=== PATIENT | female | born 1945 | race Caucasian/White ===

== ENCOUNTER 2020-08-07 08:19 | Outpatient (REF) | payer MEDICARE, SELFPAY ==
--- NOTE | 2020-08-07 08:24 | MM_ITS ---
EXAMINATION: MM SCREENING DIGITAL BREAST TOMOSYNTHESIS, BILATERAL CLINICAL INFORMATION: Screening. Asymptomatic. The lifetime risk of breast cancer based on the Tyrer-Cuzick Model is 2.9%. COMPARISON: Mammography: May 16, 2019 and studies dating back to December 01, 2013 TECHNIQUE: Digital breast tomosynthesis is performed in both the craniocaudal and mediolateral oblique views along with computer-aided detection (CAD). Synthesized 2D images are generated from the tomosynthesis. FINDINGS: The breasts are almost entirely fatty (ACR BI-RADS breast composition Category a). There are no significant masses, abnormal calcifications, or other abnormalities. MM/MM tomosynthesis screening BI IMPRESSION: There are no significant changes from prior study. ASSESSMENT: BI-RADS 1: Negative RECOMMENDATION: Routine annual mammography screening. This patient's information was entered into a reminder system with a target due date for their next mammogram.
== END 2020-08-07 08:20 | disposition home or self-care (01) ==
LOC: HO.MAMMO 08:19
PROVIDERS: PCP Internal Medicine; Visit Provider Internal Medicine
DX: Z12.31 Encounter for screening mammogram for malignant neoplasm of breast (principal)
CPT/HCPCS: 77063; 77067

== ENCOUNTER 2020-09-11 11:07 | Outpatient (REF) | payer MEDICARE, SELFPAY ==
[2020-09-11 12:40] LABS: Thyroid Stimulating Hormone 4.97 uIU/mL (0.32-4.0)
[2020-09-11 12:43] LABS: Free T4 (Free Thyroxine) 1.02 ng/dL (0.71-1.85)
== END 2020-09-11 11:08 | disposition home or self-care (01) ==
LOC: HO.LAB 11:07
PROVIDERS: PCP Internal Medicine; Visit Provider Internal Medicine Endocrinology, Diabetes & Metabolism
DX: E03.9 Hypothyroidism, unspecified (principal)
CPT/HCPCS: 36415; 84439; 84443

== ENCOUNTER → 2020-09-13 13:05 | Outpatient (BNVA) | payer MEDICARE, SELFPAY | PROVIDERS: PCP Internal Medicine; Visit Provider Internal Medicine Endocrinology, Diabetes & Metabolism | DX: Z13.89 Encounter for screening for other disorder (principal) | CPT/HCPCS: Q3014 ==

== ENCOUNTER 2020-10-16 14:01 | Outpatient (REF) | payer MEDICARE, SELFPAY ==
[2020-10-16 14:28] LABS: MANUAL DIFF FLAG NO
[2020-10-16 14:33] LABS: Basophils Percent Auto 0.4 % (0-2); Eosinophils Absolute Auto 0.2 X10*3/uL (0.0-0.4); Eosinophils Percent Auto 3.2 % (0-4); Hematocrit 30.4 % (37-47); Hemoglobin 8.6 g/dl (12.0-16.0); Imm Gran Abs Auto 0.02 X10*3/uL (0.00-0.03); Imm Gran Pct Auto 0.3 % (0.0-0.4); Lymphocytes Absolute Auto 1.1 X10*3/uL (1.2-4.9); Lymphocytes Percent Auto 16.1 % (20-40); Mean Corpuscular HGB Conc 28.3 g/dl (31.0-35.0); Mean Corpuscular Hemoglobin 21.2 pg (27.0-33.0); Mean Corpuscular Volume 75.1 fL (80-98); Mean Platelet Volume 9.6 fL (9.4-12.3); Monocytes Percent Auto 14.5 % (2-11); Neutrophils Absolute Auto 4.5 X10*3/uL (2.0-8.3); Neutrophils Percent Auto 65.5 % (45-73); Platelet Count 293 X10*3/uL (160-400); Red Blood Count 4.05 X10*6/uL (4.20-5.50); Red Cell Distribution Width 20.4 % (11.0-16.0); White Blood Count 6.9 X10*3/uL (4.8-10.8)
[2020-10-16 15:00] LABS: Alanine Aminotransferase 19 U/L (0-31); Albumin Level 4.4 g/dL (3.5-5.0); Alkaline Phosphatase 80 U/L (39-117); Anion Gap 15 (12-20); Aspartate Amino Transferase 22 U/L (5-31); Bilirubin Total 0.5 mg/dL (0.0-1.0); Blood Urea Nitrogen 19 mg/dL (9-16); Calcium 9.3 mg/dL (8.4-10.2); Carbon Dioxide 23 mmol/L (22-29); Chloride 104 mmol/L (96-108); Estimated Glomerular Filt Rate > 60; Glucose Fasting 89 mg/dL (60-99); Potassium 4.4 mmol/L (3.3-5.1); Sodium 138 mmol/L (135-145); Total Protein 7.1 g/dL (6.5-8.0)
[2020-10-16 15:20] LABS: Free T4 (Free Thyroxine) 0.95 ng/dL (0.71-1.85)
== END 2020-10-16 14:02 | disposition home or self-care (01) ==
LOC: HO.LAB 14:01
PROVIDERS: Internal Medicine Endocrinology, Diabetes & Metabolism; PCP Internal Medicine; Visit Provider Internal Medicine
DX: R42 Dizziness and giddiness (principal); E03.8 Other specified hypothyroidism; E06.3 Autoimmune thyroiditis
CPT/HCPCS: 36415; 80053; 84439; 84443; 85025

== ENCOUNTER → 2020-11-08 14:51 | Outpatient (BNVA) | payer MEDICARE, SELFPAY | PROVIDERS: PCP Internal Medicine; Visit Provider Internal Medicine Gastroenterology | DX: D50.9 Iron deficiency anemia, unspecified (principal) | CPT/HCPCS: 99212 ==

== ENCOUNTER 2020-11-26 08:48 | Day surgery (SDC) | payer MEDICARE, SELFPAY ==
[2020-11-21 10:14] VITALS: BMI 27.6
--- NOTE | 2020-11-25 09:46 | HO.ANESPROP2 ---
HPI - Anesthesia Eval Consult details Narrative: 75yo F for Upper Endoscopy and Colonoscopy PMFSH Active Problems Active Problems: All Active Problems (Updated 11/21/20 @ 10:27 by Ruth Ann Dias) Microcytic anemia (Acute) Dizziness (Acute) Hypovitaminosis D (Acute) Dyslipidemia (Acute) Autoimmune thyroiditis (Acute) Hypothyroidism (Acute) Past Medical History Medical History Autoimmune thyroiditis Carpal tunnel syndrome on both sides COVID-19 vaccine administered Dizziness Dyslipidemia Elevated cholesterol Hypothyroidism Hypovitaminosis D Microcytic anemia Family History Family History Father Lymphoma Mother No problems noted. Sister In good health Surgical History Surgical History Hx of colonoscopy Total knee replacement status Social History Social History Alcohol intake: current Alcohol intake frequency: holidays/special occasions only Alcohol type: wine Smoking Status: Never smoker Use of substances other than those prescribed or required for medical reasons: No Have you been hit, kicked, punched, or otherwise hurt by someone within the past year? If so, by whom?: No Are you DNR?: No Advance Directives Information Provided: No Recently lost weight without trying: No Eating poorly because of decreased appetite: No Nutrition Risks: No Nutritional Risk Poor oral hygiene: No Meds Allergies Allergy/AdvReac Type Severity Reaction Status Date / Time No Known Allergies Allergy Verified 11/08/20 15:04 Home Medications Medication Instructions Recorded Confirmed Last Taken Type ascorbate calcium (vitamin C) 500 500 mg PO DAILY 08/14/20 11/21/20 Unknown History mg tablet Exam Exam Date and Time: November 25, 2020 0946 Height,Weight and Vital Signs: Height 5 ft 9 in Weight 84.822 kg Pertinent Lab Results Pertinent Lab Results: Laboratory Tests 11/01/20 11/01/20 13:34 13:34 WBC 5.7 Hgb 10.7 L D Hct 36.1 L Plt Count 257 Sodium 140 Potassium 4.4 Chloride 108 Carbon Dioxide 24 BUN 18 H Creatinine 0.86 Assessment and Plan Assessment Anesthesia Assessment: Chart Reviewed
[2020-11-26 09:08] VITALS: BMI 24.3
[2020-11-26 09:30] VITALS: BP 147/74; PULSE 78; RESP 16; TEMP 36.2; O2SAT 96
[2020-11-26] MEDS: Lactated Ringers 1,000 ML 100 ML IVCONT (09:32)
--- NOTE | 2020-11-26 09:45 | P.CONAN_ITS ---
[facility] Active Problems Active Problems: All Active Problems (Updated 11/21/20 @ 10:27 by Ruth Ann polk) Microcytic anemia (Acute) Dizziness (Acute) Hypovitaminosis D (Acute) Dyslipidemia (Acute) Autoimmune thyroiditis (Acute) Hypothyroidism (Acute) Past Medical History Medical History Autoimmune thyroiditis Carpal tunnel syndrome on both sides COVID-19 vaccine administered Dizziness Dyslipidemia Elevated cholesterol Hypothyroidism Hypovitaminosis D Microcytic anemia Family History Family History Father Lymphoma Mother No problems noted. Sister In good health Surgical History Surgical History Hx of colonoscopy Total knee replacement status Social History Social History Alcohol intake: current Alcohol intake frequency: holidays/special occasions only Alcohol type: wine Smoking Status: Never smoker Use of substances other than those prescribed or required for medical reasons: No Have you been hit, kicked, punched, or otherwise hurt by someone within the past year? If so, by whom?: No Are you DNR?: No Advance Directives Information Provided: No Recently lost weight without trying: No Eating poorly because of decreased appetite: No Nutrition Risks: No Nutritional Risk Poor oral hygiene: No Meds Allergies Allergy/AdvReac Type Severity Reaction Status Date / Time No Known Allergies Allergy Verified 11/08/20 15:04 Active Medications: Current Medications Generic Name Dose Route Start Last Admin Trade Name Kala PRN Reason Stop Dose Admin Lactated Ringer's 1,000 mls @ 100 mls/hr 11/26/20 09:00 11/26/20 09:32 Lr IVCONT 100 mls/hr .Q10H MANOHAR Administration Home Medications Medication Instructions Recorded Confirmed Last Taken Type ascorbate calcium (vitamin C) 500 500 mg PO DAILY 08/14/20 11/21/20 Unknown History mg tablet Exam Exam Date and Time: November 26, 2020 0945 Height,Weight and Vital Signs: Height 5 ft 9 in Weight 74.843 kg Last Vital Signs Temp 97.1 F 11/26/20 09:30 Pulse 78 11/26/20 09:30 Resp 16 11/26/20 09:30 BP 147/74 H 11/26/20 09:30 Pulse Ox 96 11/26/20 09:30 Airway Mallampati Class: III TM Dist: >3cm Neck ROM: Full Heart: RRR Lungs: CTA
--- NOTE | 2020-11-26 10:44 | P.OP_ITS ---
Operative Note Operative Note Date of Service: 11/26/20 Narrative: Pre-op diagnosis: Colon cancer screening, iron deficiency anemia Post-op diagnosis: other (Esophagitis, gastritis, colon polyp, diverticulosis) Procedure: FLEXIBLE TRANSORAL UPPER GASTROINTESTINAL ENDOSCOPY WITH BIOPSIES AND COLONOSCOPY TILL CECUM WITH BIOPSIES AND SNARE POLYPECTOMY PROCEDURE NOTE UPPER ENDOSCOPY Consent: Indications for the procedure and potential complications of bleeding, perforation, reaction to medications and missed diagnosis were discussed with the patient and informed consent was obtained. Instrument: Olympus GIF H 190 mid size upper endoscope Monitoring: Vital signs and clinical assessment, continuous EKG monitoring, Pulse oximetry, Carbon Dioxide monitoring and blood pressure monitoring were done throughout the procedure. Procedure: The patient was placed in the left lateral decubitis position and pre-procedure medications were administered and a bite block was placed. The endoscope was inserted into the mouth and advanced under direct vision to the third part of duodenum. A careful inspection was made as the upper endoscope was withdrawn including a retroflexed examination of the proximal stomach; Findings and interventions are described below. Findings: Larynx: Normal Esophagus: GE junction at 34 cms, small hiatal hernia 34 to 36 cms. Focal ulcer at GE junction. A 1 cms tongue of suspected Gaytan's - biopsied. Stomach: Mild gastric erythema. Biopsies were obtained. Grade 2 flap valve on retroflexed examination of the cardia. Duodenum: Normal bulb and descending duodenum. Biopsies were obtained from 3rd part of duodenum to check for celiac sprue. Intervention: Biopsies as noted above COLONOSCOPY PROCEDURE NOTE Consent: Indications for the procedure and potential complications of bleeding, perforation, reaction to medications and missed diagnosis were discussed with the patient and informed consent was obtained. Instrument: Olympus PCF H 190 L variable stiffness pediatric colonoscope Monitoring: Vital signs and clinical assessment, intermittent blood pressure monitoring, continuous EKG monitoring, Pulse oximetry and Carbon Dioxide monitoring were done throughout the procedure. Colon withdrawl time was 31 minutes. Procedure: The patient was placed in the left lateral decubitis position and pre-procedure medications were administered. After a digital rectal examination of the ano-rectum, the video colonoscope was inserted into the rectum and advanced through the colon to the cecum. The colonoscope was slowly withdrawn in a retrograde panoramic fashion and the colon mucosa was carefully examined including a retroflexed view of the rectum. Findings and interventions are described below. Procedure Difficulty: : Colon was long and tortuous and there was recurrent loop formation. Patient was placed in the supine position and LLQ pressure was applied to intubate the ascending colon Findings: Terminal Ileum: Not evaluated Cecum: Normal Ascending Colon: A 2 cms sessile polyp removed with a hot snare. Transverse Colon: Normal Descending Colon: Normal Sigmoid Colon: Moderate diverticulosis Rectum: Normal Ano-rectum: Hypertrophied anal papillae Colon preparation: Good to fair despite copious irrigation Impression and Post Procedure Diagnosis: Endoscopy Findings: ESOPHAGUS: Small hiatal hernia 34 to 36 cms. Focal ulcer at GE junction. A 1 cms tongue of suspected Gaytan's - biopsied. STOMACH: Gastritis DUODENUM: Normal - biopsied to check for celiac sprue Colonoscopy Findings: One large polyp removed Moderate diverticulosis seen in the sigmoid colon Plan: Await pathology results Patient has an appointment on 12/26/20 in the GI Clinic with Latesha Mitchell M.D.. Repeat Colonoscopy interval based on path results - in 3 years if polyps are adenomatous and due to fair prep. Above findings were reviewed with the patient and colon polyps and GERD handouts were given in the discharge area Surgeon: Latesha Mitchell MD BIOPSIES SHOWED: A. Small bowel, biopsy: Small intestinal mucosa within normal limits. B. Stomach, antrum, biopsy: Antral-type mucosa with mild chronic inactive inflammation; no Helicobacter organisms seen. C. Esophagus, distal, biopsy: - Cardiac-type mucosa with moderate chronic active inflammation; no intestinal metaplasia seen. - Squamous mucosa within normal limits. D. Colon, ascending, polypectomy: Fragments of tubular adenoma; no high-grade dysplasia or carcinoma seen. COMMENT: Diagnostic features of celiac disease are not seen. Anesthesia: MAC (DR. PIÑA) Was an Industrial Technology Education Teacher used for this Procedure?: Yes Industrial Technology Education Teacher: Gary Mai Estimated blood loss (mL): 0 Pathology: other (A- SMALL BOWEL BXS R/O CELIAC B- GASTRIC ANTRUM BXS R/O H. PYLORI C-DISTAL ESOPHAGUS BXS R/O GAYTAN'S D- ASCENDING COLON POLYP) Condition: stable Disposition: PACU
--- NOTE | 2020-11-26 10:44 | MHC.SHP ---
Pre-Procedural Eval Section A The patient is an INPATIENT: No Changes since office visit: Yes Patient answered all questions; No Cold of Flu in the past 2 weeks, No New Medical Problems and No Changes in Medication The History & Physical has been completed within 30 days and I have reviewed it.: Yes Section B Chief Complaint: Iron Deficency Anemia Allergies: Allergies Allergy/AdvReac Type Severity Reaction Status Date / Time No Known Allergies Allergy Verified 11/08/20 15:04 Plan I have reviewed the history and physical and performed a pertinent physical examination on my patient. No changes have occurred unless specified.
[2020-11-26 11:52] VITALS: BP 143/73; PULSE 53; RESP 16; TEMP 36.3; O2SAT 96
[2020-11-26 12:07] VITALS: BP 159/75; PULSE 53; RESP 18; TEMP 36.3; O2SAT 100
== END 2020-11-26 12:50 | disposition home or self-care (01) ==
PROVIDERS: PCP Internal Medicine; Visit Provider Internal Medicine Gastroenterology
PROC: (CPT 45385; principal; 2020-11-26 10:00)
DX: Z12.11 Encounter for screening for malignant neoplasm of colon (principal); D50.9 Iron deficiency anemia, unspecified; D12.2 Benign neoplasm of ascending colon; K57.30 Diverticulosis of large intestine without perforation or abscess without bleeding; K29.50 Unspecified chronic gastritis without bleeding; K20.80 Other esophagitis without bleeding; K44.9 Diaphragmatic hernia without obstruction or gangrene; K62.89 Other specified diseases of anus and rectum; E06.3 Autoimmune thyroiditis; E03.9 Hypothyroidism, unspecified; E55.9 Vitamin D deficiency, unspecified; Z79.899 Other long term (current) drug therapy
CPT/HCPCS: 45385; 45380; 43239; 88305; 88342

== ENCOUNTER → 2020-12-26 10:32 | Outpatient (BNVA) | payer MEDICARE, SELFPAY | PROVIDERS: PCP Internal Medicine; Referring Provider Internal Medicine; Visit Provider Internal Medicine Gastroenterology | DX: K22.10 Ulcer of esophagus without bleeding (principal); D50.9 Iron deficiency anemia, unspecified; Z86.010 Personal history of colon polyps | CPT/HCPCS: 99212 ==

== ENCOUNTER 2021-01-30 11:58 | Outpatient (REF) | payer MEDICARE, SELFPAY ==
[2021-01-30 13:11] LABS: MANUAL DIFF FLAG NO
[2021-01-30 13:19] LABS: Basophils Percent Auto 0.5 % (0-2); Eosinophils Absolute Auto 0.2 X10*3/uL (0.0-0.4); Hemoglobin 13.9 g/dl (12.0-16.0); Imm Gran Abs Auto 0.02 X10*3/uL (0.00-0.03); Imm Gran Pct Auto 0.3 % (0.0-0.4); Lymphocytes Absolute Auto 0.9 X10*3/uL (1.2-4.9); Lymphocytes Percent Auto 15.5 % (20-40); Mean Corpuscular HGB Conc 32.3 g/dl (31.0-35.0); Mean Corpuscular Hemoglobin 29.1 pg (27.0-33.0); Mean Platelet Volume 10.9 fL (9.4-12.3); Monocytes Absolute Auto 0.8 X10*3/uL (0.1-1.2); Monocytes Percent Auto 12.6 % (2-11); Neutrophils Percent Auto 68.1 % (45-73); Platelet Count 207 X10*3/uL (160-400); Red Blood Count 4.78 X10*6/uL (4.20-5.50); Red Cell Distribution Width 17.9 % (11.0-16.0); White Blood Count 5.9 X10*3/uL (4.8-10.8)
[2021-01-30 13:30] LABS: Alanine Aminotransferase 25 U/L (0-31); Albumin Level 4.4 g/dL (3.5-5.0); Alkaline Phosphatase 77 U/L (39-117); Anion Gap 14 (12-20); Aspartate Amino Transferase 25 U/L (5-31); Bilirubin Total 0.8 mg/dL (0.0-1.0); Blood Urea Nitrogen 15 mg/dL (9-16); Calcium 9.6 mg/dL (8.4-10.2); Carbon Dioxide 23 mmol/L (22-29); Chloride 106 mmol/L (96-108); Cholesterol 176 mg/dL; Estimated Glomerular Filt Rate 57; Glucose Fasting 75 mg/dL (60-99); HDL Cholesterol 59 mg/dL; LDL Cholesterol Calculated 106 mg/dl; Potassium 4.4 mmol/L (3.3-5.1); Sodium 139 mmol/L (135-145); Total Protein 7.1 g/dL (6.5-8.0); Triglycerides 58 mg/dL
[2021-02-03 13:41] LABS: Vitamin D 25-OH, D2 <4 ng/mL; Vitamin D 25-OH, D3 29 ng/mL; Vitamin D 25-OH, Total 29 ng/mL (30-100)
== END 2021-01-30 11:59 | disposition home or self-care (01) ==
LOC: HO.LAB 11:58
PROVIDERS: Absent Provider Internal Medicine Gastroenterology; PCP Internal Medicine; Referring Provider Internal Medicine Medical Oncology; Visit Provider Internal Medicine
DX: D50.9 Iron deficiency anemia, unspecified (principal); E78.5 Hyperlipidemia, unspecified; E55.9 Vitamin D deficiency, unspecified
CPT/HCPCS: 36415; 80053; 80061; 82306; 85025

== ENCOUNTER 2021-03-04 11:06 | Day surgery (SDC) | payer MEDICARE, SELFPAY ==
[2021-02-25 14:44] VITALS: BMI 24.3
--- NOTE | 2021-03-03 10:30 | HO.ANESPROP2 ---
HPI - Anesthesia Eval Consult details Narrative: 76yo F for Upper Endoscopy s/p upper and colo with [facility] 11[facility] Active Problems Active Problems: All Active Problems (Updated 01/07/21 @ 13:32 by Natalya Valencia MD) Esophageal ulcer without bleeding (Acute) History of colon polyps (Acute) Obesity (Acute) Microcytic anemia (Acute) Dizziness (Acute) Hypovitaminosis D (Acute) Dyslipidemia (Acute) Autoimmune thyroiditis (Acute) Hypothyroidism (Acute) Past Medical History Medical History (Updated 01/07/21 @ 13:32 by Natalya Valencia MD) Autoimmune thyroiditis Carpal tunnel syndrome on both sides COVID-19 vaccine administered Dizziness Dyslipidemia Elevated cholesterol Hypothyroidism Hypovitaminosis D Microcytic anemia Family History Family History Father Lymphoma Mother No problems noted. Sister In good health Surgical History Surgical History (Updated 02/25/21 @ 14:40 by Ruth Ann Dias RN) History of esophagogastroduodenoscopy (EGD) Hx of colonoscopy Hx of colonoscopy Total knee replacement status Social History Social History (Updated 12/26/20 @ 10:58 by Marta Joshua) Alcohol intake: current Alcohol intake frequency: holidays/special occasions only Alcohol type: wine Patient Tobacco Use Status: Never used Tobacco Use of substances other than those prescribed or required for medical reasons: No Advance Directives Information Provided: No Meds Allergies Allergy/AdvReac Type Severity Reaction Status Date / Time No Known Allergies Allergy Verified 12/26/20 10:45 Exam Exam Date and Time: March 03, 2021 1030 Height,Weight and Vital Signs: Height 5 ft 9 in Weight 74.843 kg Pertinent Lab Results Pertinent Lab Results: Laboratory Tests 01/30/21 01/30/21 12:15 12:15 WBC 5.9 Hgb 13.9 Hct 43.0 Plt Count 207 Sodium 139 Potassium 4.4 Chloride 106 Carbon Dioxide 23 BUN 15 Creatinine 0.95 Assessment and Plan Assessment Anesthesia Assessment: Chart Reviewed
[2021-03-04 11:35] VITALS: BP 142/69; PULSE 53; RESP 16; TEMP 36.1; O2SAT 95
[2021-03-04] MEDS: Lactated Ringers 1,000 ML 100 ML IVCONT (12:00)
--- NOTE | 2021-03-04 12:52 | MHC.SHP ---
Pre-Procedural Eval Section A Date of Service: 03/04/21 The patient is an INPATIENT: No The History & Physical has been completed within 30 days and I have reviewed it.: No Section B Chief Complaint: Esophael ulcer without bleeding Details of Present Illness: Follow-up of esophageal ulcer Relevant Family History (Specify if Yes): No Relevant Social History: None Present Medications: see Short Stay Collaborative assessment Medical History: Significant History (Autoimmune thyroiditis Carpal tunnel syndrome on both sides COVID-19 vaccine administered Dizziness Dyslipidemia Elevated cholesterol Hypothyroidism Hypovitaminosis D Microcytic anemia) History of Previous Operations: Relevant previous surgery/procedure and date(s) (History of esophagogastroduodenoscopy (EGD) Hx of colonoscopy Hx of colonoscopy Total knee replacement status) Allergies: Allergies Allergy/AdvReac Type Severity Reaction Status Date / Time No Known Allergies Allergy Verified 12/26/20 10:45 Review of Systems Sugical H&P ROS: Negative: Constitution, Cardiovascular and Respiratory and Yes, Specify: Gastrointestinal (GERD) Exam Surgical H&P Exam: Normal: Heart, Normal: Lungs, Normal: Extremities and Normal: Abdomen Plan Diagnosis/Plan: Unchanged I have reviewed the history and physical and performed a pertinent physical examination on my patient. No changes have occurred unless specified.
--- NOTE | 2021-03-04 13:04 | P.BOP_ITS ---
Brief Operative Note Date of Service: 03/04/21 Pre-op diagnosis: GERD, FU of esophageal ulcer Post-op diagnosis: other (GERD, Hiatal hernia, gastritis) Procedure: FLEXIBLE TRANSORAL UPPER GASTROINTESTINAL ENDOSCOPY WITH BIOPSIES Consent: Indications for the procedure and potential complications of bleeding, perforation, reaction to medications and missed diagnosis were discussed with the patient and informed consent was obtained. Instrument: Olympus GIF H 190 mid size upper endoscope Monitoring: Vital signs and clinical assessment, continuous EKG monitoring, Pulse oximetry, Carbon Dioxide monitoring and blood pressure monitoring were done throughout the procedure. Procedure: The patient was placed in the left lateral decubitis position and pre-procedure medications were administered and a bite block was placed. The endoscope was inserted into the mouth and advanced under direct vision to the third part of duodenum. A careful inspection was made as the upper endoscope was withdrawn including a retroflexed examination of the proximal stomach; Findings and interventions are described below. Findings: Larynx: Normal Esophagus: GE junction at 34 cms, small hiatal hernia 34 to 36 cms.? Focal ulcer at GE junction seen on last EGD appears to have healed. Stomach: Mild gastric erythema. Biopsies were obtained. Grade 2 flap valve on retroflexed examination of the cardia. Duodenum: Normal bulb and descending duodenum Intervention: Biopsies as noted above Impression and Post Procedure Diagnosis: Endoscopy Findings: ESOPHAGUS: small hiatal hernia 34 to 36 cms.? Focal ulcer at GE junction seen on last EGD appears to have healed. STOMACH: Gastritis Plan: Await pathology results Patient has an appointment on 03/20/21 in the GI Clinic with Latesha Mitchell M.D. Above findings were reviewed with the patient. Surgeon: Latesha Mitchell MD Anesthesia: MAC (Barbara Gupta CRNA) Was an Electronics Mechanic Apprentice used for this Procedure?: Yes Electronics Mechanic Apprentice: Wanda Nicolas Estimated blood loss (mL): 0 Pathology: other ( A- STOMACH BIOPSIES) Condition: stable Disposition: other
--- NOTE | 2021-03-04 13:29 | W.PM.OPN ---
Operative Note Operative Note Date of Service: 03/04/21 Narrative: Pre-op diagnosis:?GERD, FU of esophageal ulcer Post-op diagnosis:?other (GERD, Hiatal hernia, gastritis) Procedure:? FLEXIBLE TRANSORAL UPPER GASTROINTESTINAL ENDOSCOPY WITH BIOPSIES Consent:?Indications for the procedure and potential complications of bleeding, perforation, reaction to medications and missed diagnosis were discussed with the patient and informed consent was obtained. Instrument:?Olympus GIF H 190 mid size upper endoscope Monitoring: Vital signs and clinical assessment, continuous EKG monitoring, Pulse oximetry, Carbon Dioxide monitoring and blood pressure monitoring were done throughout the procedure. Procedure:?The patient was placed in the left lateral decubitis position and pre-procedure medications were administered and a bite block was placed. The endoscope was inserted into the mouth and advanced under direct vision to the third part of duodenum. A careful inspection was made as the upper endoscope was withdrawn including a retroflexed examination of the proximal stomach; Findings and interventions are described below. Findings: Larynx:? Normal Esophagus:?GE junction at 34 cms, small hiatal hernia 34 to 36 cms.? Focal ulcer at GE junction seen on last EGD appears to have healed. Stomach:?Mild gastric erythema. Biopsies were obtained. Grade 2 flap valve on retroflexed examination of the cardia. Duodenum:?Normal bulb and descending duodenum Intervention:?Biopsies as noted above Impression and Post Procedure Diagnosis: Endoscopy Findings: ESOPHAGUS:?small hiatal hernia 34 to 36 cms.? Focal ulcer at GE junction seen on last EGD appears to have healed. STOMACH: Gastritis Plan: Await pathology results Patient has an appointment on 03/20/21 in the GI Clinic with Latesha Mitchell M.D. Above findings were reviewed with the patient. Surgeon:?Latesha Mitchell MD Anesthesia:?MAC (Barbara Gupta CRNA) Was an Senior Net Application Developer used for this Procedure?:?Yes Senior Net Application Developer:?Wanda Nicolas Estimated blood loss (mL):?0 Pathology:?other ( A- STOMACH BIOPSIES) Condition:?stable Disposition:?other
[2021-03-04 13:31] VITALS: BP 98/51; PULSE 94; RESP 18; TEMP 36.8; O2SAT 94
[2021-03-04 13:48] VITALS: BP 120/78; PULSE 58; RESP 18; TEMP 36.1; O2SAT 97
== END 2021-03-04 14:19 ==
LOC: HO.SSS 11:06
PROVIDERS: PCP Internal Medicine; Visit Provider Internal Medicine Gastroenterology
PROC: 0DJ08ZZ Inspection of Upper Intestinal Tract, Via Natural or Artificial Opening Endoscopic (ICD-10-PCS; CPT 43235; principal; 2021-03-04 12:50)
DX: K22.10 Ulcer of esophagus without bleeding (principal); K29.50 Unspecified chronic gastritis without bleeding; K21.9 Gastro-esophageal reflux disease without esophagitis; K44.9 Diaphragmatic hernia without obstruction or gangrene; D50.9 Iron deficiency anemia, unspecified; E06.3 Autoimmune thyroiditis; E78.5 Hyperlipidemia, unspecified; E03.9 Hypothyroidism, unspecified; E55.9 Vitamin D deficiency, unspecified; R42 Dizziness and giddiness; Z79.899 Other long term (current) drug therapy
CPT/HCPCS: 43239; 88305; 88342; J3010

== ENCOUNTER → 2021-03-20 10:02 | Outpatient (BNVA) | payer MEDICARE, SELFPAY | PROVIDERS: PCP Internal Medicine; Visit Provider Internal Medicine Gastroenterology | CPT/HCPCS: Q3014 ==

== ENCOUNTER 2021-04-17 15:43 | Outpatient (REF) | payer MEDICARE, SELFPAY ==
[2021-04-17 16:21] LABS: MANUAL DIFF FLAG NO
[2021-04-17 16:59] LABS: Basophils Percent Auto 0.6 % (0-2); Eosinophils Absolute Auto 0.2 X10*3/uL (0.0-0.4); Eosinophils Percent Auto 2.8 % (0-4); Hematocrit 40.4 % (37-47); Hemoglobin 13.8 g/dl (12.0-16.0); Imm Gran Abs Auto 0.02 X10*3/uL (0.00-0.03); Imm Gran Pct Auto 0.3 % (0.0-0.4); Lymphocytes Percent Auto 14.6 % (20-40); Mean Corpuscular HGB Conc 34.2 g/dl (31.0-35.0); Mean Corpuscular Hemoglobin 32.3 pg (27.0-33.0); Mean Corpuscular Volume 94.6 fL (80-98); Mean Platelet Volume 11.1 fL (9.4-12.3); Monocytes Absolute Auto 0.8 X10*3/uL (0.1-1.2); Monocytes Percent Auto 10.6 % (2-11); Neutrophils Absolute Auto 5.1 X10*3/uL (2.0-8.3); Neutrophils Percent Auto 71.1 % (45-73); Platelet Count 224 X10*3/uL (160-400); Red Blood Count 4.27 X10*6/uL (4.20-5.50); Red Cell Distribution Width 13.5 % (11.0-16.0); White Blood Count 7.1 X10*3/uL (4.8-10.8)
[2021-04-17 17:48] LABS: Alanine Aminotransferase 26 U/L (0-31); Albumin Level 4.5 g/dL (3.5-5.0); Alkaline Phosphatase 66 U/L (39-117); Anion Gap 13 (12-20); Aspartate Amino Transferase 24 U/L (5-31); Blood Urea Nitrogen 20 mg/dL (9-16); Calcium 9.6 mg/dL (8.4-10.2); Carbon Dioxide 23 mmol/L (22-29); Chloride 106 mmol/L (96-108); Cholesterol 169 mg/dL; Estimated Glomerular Filt Rate 54; Glucose Fasting 82 mg/dL (60-99); HDL Cholesterol 56 mg/dL; LDL Cholesterol Calculated 99 mg/dl; Potassium 4.3 mmol/L (3.3-5.1); Sodium 138 mmol/L (135-145); Total Protein 7.1 g/dL (6.5-8.0); Triglycerides 74 mg/dL
[2021-04-17 18:08] LABS: Ferritin 71 ng/mL (10-250); Free T4 (Free Thyroxine) 1.02 ng/dL (0.71-1.85); Thyroid Stimulating Hormone 4.57 uIU/mL (0.32-4.0)
== END 2021-04-17 15:44 | disposition home or self-care (01) ==
LOC: HO.LAB 15:43
PROVIDERS: Internal Medicine Gastroenterology; Absent Provider Internal Medicine Medical Oncology; PCP Internal Medicine; Visit Provider Internal Medicine Endocrinology, Diabetes & Metabolism
DX: D50.9 Iron deficiency anemia, unspecified (principal); E78.5 Hyperlipidemia, unspecified; E03.8 Other specified hypothyroidism; E06.3 Autoimmune thyroiditis
CPT/HCPCS: 36415; 80053; 80061; 82728; 84439; 84443; 85025

== ENCOUNTER → 2021-09-12 10:11 | Outpatient (BNVA) | payer MEDICARE, SELFPAY | PROVIDERS: PCP Internal Medicine; Visit Provider Nurse Practitioner Gerontology | DX: E03.8 Other specified hypothyroidism (principal); E06.3 Autoimmune thyroiditis; E55.9 Vitamin D deficiency, unspecified | CPT/HCPCS: Q3014 ==

== ENCOUNTER 2021-09-16 13:10 | Outpatient (REF) | payer MEDICARE, SELFPAY ==
--- NOTE | ~2021-09-16 | MM_ITS ---
EXAMINATION: MM SCREENING DIGITAL BREAST TOMOSYNTHESIS, BILATERAL CLINICAL INFORMATION: Screening. Asymptomatic. The lifetime risk of breast cancer based on the Tyrer-Cuzick Model is 2%. COMPARISON: Mammography: 08/07/2020, 05/16/2019, 05/02/2018 TECHNIQUE: Digital breast tomosynthesis is performed in both the craniocaudal and mediolateral oblique views along with computer-aided detection (CAD). Synthesized 2D images are generated from the tomosynthesis. Additional right CC view is provided. FINDINGS: The breasts are almost entirely fatty (ACR BI-RADS breast composition Category a). Parenchymal pattern is similar to prior studies. Background stromal and fibroglandular markings are stable. No developing density, interval mass, architectural abnormality. No abnormal calcifications. Skin contours are smooth. There are no significant changes. MM/MM tomosynthesis screening BI IMPRESSION: No mammographic evidence of malignancy. ASSESSMENT: BI-RADS 1: Negative RECOMMENDATION: Routine annual mammography screening. This patient's information was entered into a reminder system with a target due date for their next mammogram.
[2021-09-16 14:33] LABS: MANUAL DIFF FLAG NO
[2021-09-16 14:41] LABS: Basophils Percent Auto 0.5 % (0-2); Eosinophils Absolute Auto 0.2 X10*3/uL (0.0-0.4); Eosinophils Percent Auto 3.3 % (0-4); Hematocrit 41.6 % (37.0-47.0); Hemoglobin 13.7 g/dl (12.0-16.0); Imm Gran Abs Auto 0.03 X10*3/uL (0.00-0.03); Imm Gran Pct Auto 0.5 % (0.0-0.4); Lymphocytes Percent Auto 15.1 % (20-40); Mean Corpuscular HGB Conc 32.9 g/dl (31.0-35.0); Mean Corpuscular Hemoglobin 31.8 pg (27.0-33.0); Mean Corpuscular Volume 96.5 fL (80.0-98.0); Mean Platelet Volume 10.8 fL (9.4-12.3); Monocytes Absolute Auto 0.9 X10*3/uL (0.1-1.2); Monocytes Percent Auto 13.6 % (2-11); Neutrophils Absolute Auto 4.3 x10*3/uL (2.0-8.3); Platelet Count 214 X10*3/uL (160-400); Red Blood Count 4.31 X10*6/uL (4.20-5.50); Red Cell Distribution Width 13.1 % (11.0-16.0); White Blood Count 6.3 X10*3/uL (4.8-10.8)
[2021-09-16 15:05] LABS: Cholesterol 172 mg/dL; HDL Cholesterol 57 mg/dL; LDL Cholesterol Calculated 96 mg/dl; Triglycerides 99 mg/dL
[2021-09-16 15:14] LABS: Estimated Average Glucose 100 mg/dL; Hemoglobin A1C 114.0642 umol/L; Hemoglobin A1c % 5.1 %
[2021-09-16 15:31] LABS: Free T4 (Free Thyroxine) 1.05 ng/dL (0.71-1.85); Thyroid Stimulating Hormone 4.97 uIU/mL (0.32-4.0); Vitamin D 25-OH Total 28.1 ng/mL (>30)
== END 2021-09-16 13:11 | disposition home or self-care (01) ==
LOC: HO.MAMMO 13:10
PROVIDERS: Internal Medicine Endocrinology, Diabetes & Metabolism; Nurse Practitioner Acute Care; Nurse Practitioner Gerontology; PCP Internal Medicine; Visit Provider Internal Medicine
DX: Z12.31 Encounter for screening mammogram for malignant neoplasm of breast (principal); D50.9 Iron deficiency anemia, unspecified; E03.9 Hypothyroidism, unspecified; E78.5 Hyperlipidemia, unspecified; E03.8 Other specified hypothyroidism; E06.3 Autoimmune thyroiditis; E55.9 Vitamin D deficiency, unspecified
CPT/HCPCS: 36415; 77063; 77067; 80061; 82306; 83036; 84439; 84443; 85025

== ENCOUNTER → 2021-09-18 08:28 | Outpatient (BNVA) | payer MEDICARE, SELFPAY | PROVIDERS: PCP Internal Medicine; Visit Provider Internal Medicine Gastroenterology | DX: Z13.89 Encounter for screening for other disorder (principal) | CPT/HCPCS: Q3014 ==

== ENCOUNTER 2021-12-03 13:29 | Outpatient (REF) | payer MEDICARE, SELFPAY ==
[2021-12-03 14:56] LABS: Free T4 (Free Thyroxine) 1.12 ng/dL (0.71-1.85); Thyroid Stimulating Hormone 1.98 uIU/mL (0.32-4.0)
== END 2021-12-03 13:30 | disposition home or self-care (01) ==
LOC: HO.LAB 13:29
PROVIDERS: PCP Internal Medicine; Visit Provider Nurse Practitioner Gerontology
DX: E03.8 Other specified hypothyroidism (principal); E06.3 Autoimmune thyroiditis
CPT/HCPCS: 36415; 84439; 84443

== ENCOUNTER 2022-03-13 10:50 | Outpatient (REF) | payer MEDICARE, SELFPAY ==
[2022-03-13 12:06] LABS: Hematocrit 39.5 % (37.0-47.0); Hemoglobin 13.6 g/dl (12.0-16.0); Mean Corpuscular HGB Conc 34.4 g/dl (31.0-35.0); Mean Corpuscular Hemoglobin 31.9 pg (27.0-33.0); Mean Corpuscular Volume 92.5 fL (80.0-98.0); Mean Platelet Volume 10.7 fL (9.4-12.3); Platelet Count 211 X10*3/uL (160-400); Red Blood Count 4.27 X10*6/uL (4.20-5.50); Red Cell Distribution Width 13.3 % (11.0-16.0); White Blood Count 6.1 X10*3/uL (4.8-10.8)
[2022-03-13 13:00] LABS: Ferritin 83 ng/mL (10-250); Thyroid Stimulating Hormone 1.28 uIU/mL (0.32-4.0)
== END 2022-03-13 10:51 | disposition home or self-care (01) ==
LOC: HO.LAB 10:50
PROVIDERS: Absent Provider Internal Medicine Gastroenterology; PCP Internal Medicine; Visit Provider Internal Medicine
DX: E06.3 Autoimmune thyroiditis (principal); D50.9 Iron deficiency anemia, unspecified
CPT/HCPCS: 36415; 82728; 84443; 85027

== ENCOUNTER → 2022-05-07 12:33 | Outpatient (BNVA) | payer MEDICARE, BC, SELFPAY | PROVIDERS: PCP Internal Medicine; Referring Provider Internal Medicine; Visit Provider Internal Medicine Gastroenterology | DX: D50.9 Iron deficiency anemia, unspecified (principal); K22.10 Ulcer of esophagus without bleeding; Z86.010 Personal history of colon polyps | CPT/HCPCS: 99212 ==

== ENCOUNTER 2022-09-25 12:16 | Outpatient (REF) | payer MEDICARE, SELFPAY ==
--- NOTE | ~2022-09-25 | MM_ITS ---
EXAMINATION: MM SCREENING DIGITAL BREAST TOMOSYNTHESIS, BILATERAL CLINICAL INFORMATION: Screening. Asymptomatic. The lifetime risk of breast cancer based on the Tyrer-Cuzick Model is 2%. COMPARISON: Mammography: 09/16/2021, 08/07/2020, 05/16/2019 TECHNIQUE: Digital breast tomosynthesis is performed in both the craniocaudal and mediolateral oblique views along with computer-aided detection (CAD). Synthesized 2D images are generated from the tomosynthesis. FINDINGS: The breasts are almost entirely fatty (ACR BI-RADS breast composition Category a). Background stromal markings are similar to prior studies and there is no developing density or interval architectural abnormality. There are no significant masses, abnormal calcifications, or other abnormalities. The axilla and skin contours are unremarkable. MM/MM tomosynthesis screening BI IMPRESSION: No mammographic evidence of malignancy. ASSESSMENT: BI-RADS 1: Negative RECOMMENDATION: Routine annual mammography screening. This patient's information was entered into a reminder system with a target due date for their next mammogram.
== END 2022-09-25 12:17 | disposition home or self-care (01) ==
LOC: HO.MAMMO 12:16
PROVIDERS: PCP Internal Medicine; Visit Provider Internal Medicine
DX: Z12.31 Encounter for screening mammogram for malignant neoplasm of breast (principal)
CPT/HCPCS: 77063; 77067

== ENCOUNTER → 2022-11-24 12:57 | Outpatient (BNVA) | payer MEDICARE, SELFPAY | PROVIDERS: PCP Internal Medicine; Visit Provider Orthopaedic Surgery | DX: M65.311 Trigger thumb, right thumb (principal) | CPT/HCPCS: 20550; 99202; J1100 ==

== ENCOUNTER 2023-02-10 09:53 | Outpatient (AMB) | payer MEDICARE, SELFPAY ==
--- NOTE | 2023-02-10 10:05 | MHC.PC.OV ---
Vital Signs 02/10/23 10:06 Height 5 ft 6 in Weight 178 lb 12.718 oz BMI 28.9 BP 138/88 Blood Pressure Location Lt brachial Position Sitting Pulse 53 Pulse Source Pulse Oximeter Temp Source Skin Pulse Oximetry (%) 98 Oxygen Delivery Method Room Air Intake Visit Reasons: unsteady on feet Intake Note: pt states unsteady on feet Hog Handler Required: No Allergies No Known Allergies Allergy (Verified 02/10/23 10:26) Medication List - Last Reconciled 02/10/23 by Jn Ornelas PA-C ascorbic acid (vitamin C) ER 500 mg PO DAILY atorvastatin 10 mg PO DAILY cetirizine 10 mg PO DAILY PRN 90 days cholecalciferol (vitamin D3) 50 mcg PO DAILY 90 days ferrous sulfate 325 mg PO Q OTHER DAY 90 days levothyroxine 75 mcg PO DAILY 90 days meclizine 25 mg PO DAILY PRN 90 days omeprazole 20 mg PO DAILY 60 days sertraline 25 mg PO DAILY 30 days Tobacco use date assessed: 02/10/23 Fall risk assessment: No Falls in past year Last assessed Fall Risk: 02/10/23 Dental Screening Dental Screen Date: 02/10/23 Did you have a dental visit in the last 12 months?: Yes Did you have a dental problem in the last 6 months where you did not have access to dental care?: No Was dental information given to patient?: Patient has dentist HPI unsteady on feet HPI Details Patient is an 78-year-old female here today for a problem visit. This is the 1st time I am meeting this 78-year-old female with a past medical history significant for hypothyroidism, dyslipidemia, vitamin-D deficiency. She has been reporting unsteadiness on her feet over the several month. She denies any numbness tingling or burning sensation in her bilateral lower extremities. She has a right knee replacement though reports she is not bothered by any arthritic type pain in her knees. She has not reported any falls. She attributes her unsteadiness on feet to try to do things to fast . [facility] Medical History Autoimmune thyroiditis Carpal tunnel syndrome on both sides COVID-19 vaccine administered Dizziness Dyslipidemia Elevated cholesterol Hypothyroidism Hypovitaminosis D Microcytic anemia Surgical History History of esophagogastroduodenoscopy (EGD) Hx of colonoscopy Hx of colonoscopy Total knee replacement status Family History (Updated 02/10/23 @ 10:33 by Jn Ornelas PA-C) Father Lymphoma Mother No problems noted. 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 1. Little interest or pleasure in doing things: not at all 2. Feeling down, depressed, or hopeless: not at all 3. Trouble falling or staying asleep, or sleeping too much: not at all 4. Feeling tired or having little energy: not at all 5. Poor appetite or overeating: not at all 6. Feeling bad about yourself - or that you are a failure or have let yourself or your family down: not at all 7. Trouble concentrating on things, such as reading the newspaper or watching television: not at all 8. Moving or speaking so slowly that other people could have noticed. Or the opposite - being so fidgety or restless that you have been moving around a lot more than usual: not at all 9. Thoughts that you would be better off or of hurting yourself in some way: not at all Total score: 0 Depression Screening Interpretation: Negative Source: Developed by Drs. Ricardo Baker, Sally García, Clarence Samson and colleagues, with an educational melissa from [employer]. Thrive Questionnaire Date Thrive assessed: 02/10/23 I am a: Patient What is your living situation today?: I have a steady place to live Within the past 12 months, did the food you bought not last and you didn't have the money to get more?: Never true Within the past 12 months, did you worry whether your food would run out before you got money to buy more?: Never true Do you have trouble paying for medicines?: No Do you have trouble getting transportation to medical appointments?: No Do you have trouble paying your heating and electricity bill?: No Do you have trouble taking care of your child, family member or friend?: No Do you have trouble with day-to-day activities such as bathing, preparing meals, shopping, managing finances, etc.?: No Are you currently unemployed and looking for a job?: No Are you interested in more education?: No AUDIT C Alcohol Use Questionnaire (AUDIT-C) 1. How often do you have a drink containing alcohol?: Never 3. How often do you have six or more drinks on one occasion?: Never Total Score: 0 JERRELL-7 AMB Questionnaire JERRELL-7 Date JERRELL - 7 assessed: 02/10/23 Feeling nervous, anxious, or on edge: 0 = Not at all Not being able to stop or control worryin = Not at all Worrying too much about different things: 0 = Not at all Trouble relaxin = Not at all Being so restless that it is hard to sit still: 0 = Not at all Becoming easily annoyed or irritable: 0 = Not at all Feeling afraid as if something awful might happen: 0 = Not at all Total JERRELL-7 score (0-4 normal; 5-9 mild; 10-14 moderate; 15-21 severe): 0 Source: Developed by Drs. Ricardo Baker, Sally García, Clarence Samson and colleagues, with an educational melissa from [employer]. Review of Systems Const Denies headache(s) Eyes Denies loss of vision ENT Denies vertigo, Denies dizziness, Denies headache(s) and Denies sore throat Card Denies chest pain, Denies leg edema and Denies lightheadedness Resp Denies cough, Denies hemoptysis and Denies wheezing GI Denies abdominal pain, Denies melena, Denies constipation, Denies diarrhea and Denies vomiting Denies urinary frequency, Denies dysuria and Denies urinary urgency Musc Denies arthralgias, Denies joint swelling, Denies numbness and Denies tingling Neuro Denies Abnormal speech present, Denies behavioral changes, Denies vertigo, Denies dizziness, Denies headache(s), Denies loss of vision, Denies memory loss, Denies numbness and Denies tingling Psych Denies anxiety, Denies behavioral changes, Denies depression, Denies memory loss and Denies panic attacks Jonathan/Lymph Denies easy bleeding and Denies easy bruising Aller/Immun Denies wheezing Physical exam (Primary Care) Vital Signs: Last Vital Signs Pulse 53 02/10/23 10:06 BP 138/88 02/10/23 10:06 Pulse Ox 98 02/10/23 10:06 Oxygen Delivery Method Room Air 02/10/23 10:06 BMI result Body Mass Index 28.9 Tobacco/Smoking Status: Tobacco use Status Tobacco use date assessed 02/10/23 02/10/23 10:07 Patient Tobacco Use Status Never used Tobacco 02/10/23 10:07 PHQ-9: PHQ-9 Score PHQ-9: Total score 0 02/10/23 10:33 Depression Screening Interpretation: Negative Thrive Assessment: Date of Thrive Assessment Date Thrive assessed 02/10/23 02/10/23 10:07 Const General: healthy appearing, no acute distress, alert and awake Nutritional Appearance: well nourished Orientation/consciousness: oriented to person, oriented to place and oriented to time HENMT Ears: TM's normal bilaterally General nose exam: Normal nasal mucous membranes and turbinates present Eyes Conjunctivae: conjunctivae normal Sclerae: sclerae normal Pupils: Equal, round and reactive pupils present Neck Neck: Yes no lymphadenopathy and Yes no JVD Thyroid: Thyroid normal Carotids: no bruits Resp Effort & Inspection: normal respiratory effort and not tachypneic Auscultation: no crackles, no rales, no rhonchi and no wheezes Cardio Rate: regular rate Rhythm: regular rhythm Heart sounds: no murmurs and normal S1 and S2 GI Palpation (GI): Soft to palpation, nontender, no hepatomegaly and no splenomegaly Auscultation: normal bowel sounds Skin General skin exam: no rashes or lesions noted and dry skin Neuro General: oriented to person, oriented to place and oriented to time Cranial nerves: Yes Equal, round and reactive pupils present Speech: No Abnormal speech present Gait exam (Neuro): Normal gait present Motor exam (neuro): no tremor noted Extrem Right upper extremity: full ROM Left upper extremity: full ROM Right lower extremity: full ROM; no edema Left lower extremity: full ROM; no edema Psych Mental Status: mental status grossly normal Speech and movement: Normal speech and movement present Affect: normal affect Attitude: cooperative Thought process: Normal thought process present Assessment and Plan Assessment & Plan (1) Unsteady gait: Code(s): R26.81 - Unsteadiness on feet Plan: Unclear etiology to patient's reported several month history of unsteadiness on feet. No recorded falls. Not use a cane or a walker at all. She is very independent and lives at home alone. Advised that she would likely benefit from physical therapy for balance training lower extremity strengthening. Advised to get labs done to evaluate for any organic cause such as anemia that could be causing her to feel unsteady. Orders: Orders PT Evaluation and Treatment Today R26.81 - Unsteadiness on feet Coding Level of Care Code Est Pt Level 3 (20177) Diagnoses Unsteady gait R26.81
[2023-02-10 10:06] VITALS: BP 138/88; PULSE 53; O2SAT 98; BMI 28.9
== END 2023-02-10 10:51 | disposition home or self-care (01) ==
PROVIDERS: PCP Internal Medicine; Visit Provider Physician Assistant
DX: R26.81 Unsteadiness on feet (principal)
CPT/HCPCS: 99213

== ENCOUNTER 2023-04-09 13:04 | Outpatient (AMB) | payer MEDICARE, SELFPAY ==
--- NOTE | 2023-04-09 13:05 | A.OFFVIS_ITS ---
Intake Vital Signs 04/09/23 13:10 Height 5 ft 6 in Weight 172 lb 6 oz BMI 27.8 BP 110/70 Blood Pressure Location Lt brachial Position Sitting Pulse 60 Pulse Source Pulse Oximeter Pulse Oximetry (%) 97 Oxygen Delivery Method Room Air Intake Visit Reasons: SWV [id number] Intake Note: Patient is here for an Annual Wellness Visit. 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 Elastic Attacher Coverstitch: Elastic Attacher Coverstitch offered & declined Accompanied by: Self / Same As Patient Allergies No Known Allergies Allergy (Verified 04/09/23 13:26) Medication List - Last Reconciled 04/09/23 by SELENA Chase ascorbic acid (vitamin C) ER 500 mg PO DAILY atorvastatin 10 mg PO DAILY cetirizine 10 mg PO DAILY PRN 90 days cholecalciferol (vitamin D3) 50 mcg PO DAILY 90 days ferrous sulfate 325 mg PO Q OTHER DAY 90 days levothyroxine 75 mcg PO DAILY 90 days meclizine 25 mg PO DAILY PRN 90 days omeprazole 20 mg PO DAILY 60 days sertraline 25 mg PO DAILY 30 days HPI HPI Comments History of Present Illness Details 78-year-old female past medical history significant for autoimmune t hyroiditis, hypothyroidism, dyslipidemia, microcytic anemia. Patient presents today for Medicare wellness exam. Mammogram completed September 2022 negative Bone density: ordered Eye exam: Recommended. [place] of care was reviewed with patient patient was provided with a written screening schedule. Healthcare proxy and MOLST forms reviewed patient patient given copies and encouraged to return completed forms to office to be scanned into chart. [facility] Medical History COVID-19 vaccine administered Elevated cholesterol Carpal tunnel syndrome on both sides Microcytic anemia Dizziness Hypovitaminosis D Dyslipidemia Autoimmune thyroiditis Hypothyroidism Surgical History History of esophagogastroduodenoscopy (EGD) Hx of colonoscopy Hx of colonoscopy Total knee replacement status Family History Father Lymphoma Mother No problems noted. 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 Cognitive needs: No Hearing needs: No Vision needs: No Questionnaire Medicare Wellness Checkup What is your age?: 80 or older What gender do you identify with?: female During the past 4 weeks, how much have you been bothered by emotional problems such as feeling anxious, depressed, irritable, sad or downhearted, and blue?: not at all During the past 4 weeks, has your physical & emotional health limited your social activities with family, friends, neighbors, or groups?: not at all During the past 4 weeks, how much bodily pain have you generally had?: no pain During the past 4 weeks, was someone available to help you if you needed & wanted help?: yes, as much as I wanted During the past 4 weeks, what was the hardest physical activity you could do for at least 2 minutes?: heavy Can you get to places out of walking distance without help? (For eg., can you travel alone on buses, taxis or drive your car?): Yes Can you go shopping for groceries or clothes without someone's help?: Yes Can you prepare your own meals?: Yes Can you do your housework without help?: Yes Because of any health problems, do you need the help of another person with your personal care needs such as eating, bathing, dressing or getting around the house?: No Can you handle your own money without help?: Yes During the past 4 weeks, how would you rate your health in general?: very good During the past 4 weeks how have things been going for you?: pretty well Are you having difficulties driving your car?: no Do you always fasten your seat belt when you are in a car?: yes, usually During past 4 weeks, have you been bothered by the following: never: Sexual problems?, Trouble eating well?, Teeth or denture problems?, Problems using the telephone? and Tiredness or fatigue? and seldom: Falling or dizzy when standing up Have you fallen 2 or more times in the past year?: No Are you afraid of falling?: No Are you a smoker?: no During the past 4 weeks, how many drinks of wine, beer, or other alcoholic beverages did you have?: no alcohol at all Do you exercise for about 20 minutes 3 or more times a week?: yes, some of the time Have you been given information to help with the following?: yes: Keeping track of your medications? and no: Hazards in your house that might hurt you? How often do you have trouble taking medicines the way you have been told to take them?: I always take medicine as prescribed How confident are you that you can control & manage most of your health problems?: somewhat confident What is your race?: White Activity of Daily Living Bathing - sponge bath, tub bath or shower: receives no assistance (gets in/out by self, if usual bathing means Dressing - getting clothes from closets & drawers, including inner/outer garments & fasteners.: gets clothes & gets completely dressed without help Toileting - going to the 'toilet room' for urine/bowel elimination & cleaning self/arranging clothes: goes to toilet room, cleans self, arranges clothes without help Transfer: moves in & out of bed and chair without help (may use support object) Continence: controls urination/bowel movements completely by self Feeding: feeds self without help Total Score: 0 Information obtained from: patient Using telephone: independent Traveling: independent Shopping: independent Preparing meals: independent Housework: independent Taking medicine: independent Managing money: independent PHQ-9 Over the last 2 weeks, how often have you been bothered by any of the following problems? 1. Little interest or pleasure in doing things: not at all 2. Feeling down, depressed, or hopeless: not at all 3. Trouble falling or staying asleep, or sleeping too much: not at all 4. Feeling tired or having little energy: not at all 5. Poor appetite or overeating: not at all 6. Feeling bad about yourself - or that you are a failure or have let yourself or your family down: not at all 7. Trouble concentrating on things, such as reading the newspaper or watching television: not at all 8. Moving or speaking so slowly that other people could have noticed. Or the opposite - being so fidgety or restless that you have been moving around a lot more than usual: not at all 9. Thoughts that you would be better off or of hurting yourself in some way: not at all Total score: 0 Depression Screening Interpretation: Negative Source: Developed by Drs. Ricardo Baker, Sally García, Clarence Samson and colleagues, with an educational melissa from [employer]. Thrive Questionnaire Date Thrive assessed: 02/10/23 JERRELL-7 AMB Questionnaire JERRELL-7 Date JERRELL - 7 assessed: 02/10/23 Source: Developed by Drs. Ricardo Baker, Sally García, Clarence Samson and colleagues, with an educational melissa from [employer]. 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 (2) Dyslipidemia: Code(s): E78.5 - Hyperlipidemia, unspecified Plan: Continue on statin medication. Patient encouraged to get previously ordered fasting blood work completed. (3) Medicare annual wellness visit, subsequent: Code(s): Z00.00 - Encounter for general adult medical examination without abnormal findings Plan: Follow-up in 1 year for subsequent annual visit. Plan Follow-up in 1 year. 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
[2023-04-09 13:10] VITALS: BP 110/70; PULSE 60; O2SAT 97; BMI 27.8
== END 2023-04-09 13:46 | disposition home or self-care (01) ==
PROVIDERS: PCP Internal Medicine; Visit Provider Nurse Practitioner Family
DX: Z00.00 Encounter for general adult medical examination without abnormal findings (principal); E03.8 Other specified hypothyroidism; E06.3 Autoimmune thyroiditis; E78.5 Hyperlipidemia, unspecified
CPT/HCPCS: G0439

== ENCOUNTER 2023-04-22 12:34 | Outpatient (AMB) | payer MEDICARE, SELFPAY ==
--- NOTE | 2023-04-22 12:40 | MHC.OFFVIS ---
Intake Vital Signs 04/22/23 12:43 Height 5 ft 6 in Weight 176 lb BMI 28.4 BP 139/77 Blood Pressure Location Lt brachial Position Sitting Pulse 84 Intake Visit Reasons: 8 month FU Intake Note: Patient 8 month follow up for Anemia, GERD and Colon polyps. Patient denies any GI issues. 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 Accompanied by: Self / Same As Patient Allergies No Known Allergies Allergy (Verified 04/22/23 12:41) Medication List - Last Reconciled 04/22/23 by Latesha Mitchell MD ascorbic acid (vitamin C) 500 mg PO DAILY 90 days atorvastatin 10 mg PO DAILY cetirizine 10 mg PO DAILY PRN 90 days cholecalciferol (vitamin D3) 50 mcg PO DAILY 90 days ferrous sulfate 325 mg PO Q OTHER DAY 90 days levothyroxine 75 mcg PO DAILY 90 days meclizine 25 mg PO DAILY PRN 90 days omeprazole 20 mg PO DAILY 60 days sertraline 25 mg PO DAILY 30 days HPI 8 month FU HPI Details GI CLINIC VISIT FOR THIS 78 YF FOR FU OF JULISSA, GERD and colon polyps. ENDOSCOPIC STUDIES: 03/04/21 EGD SHOWED: Esophagus:?GE junction at 34 cms, small hiatal hernia 34 to 36 cms.? Focal ulcer at GE junction seen on last EGD appears to have healed. Stomach:?Mild gastric erythema. Biopsies were obtained. Grade 2 flap valve on retroflexed examination of the cardia. 11/2020 EGD AND COLONOSCOPY SHOWED: ESOPHAGUS:? Small hiatal hernia 34 to 36 cms.? Focal ulcer at GE junction.? 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 STOMACH:? Gastritis DUODENUM:? Normal - biopsied to check for celiac sprue Colonoscopy Findings:? One large polyp removed Moderate diverticulosis seen in the sigmoid colon Plan:? Await pathology results Patient has an appointment on 12/26/20 in the GI Clinic with Latesha Mitchell M.D.. Repeat Colonoscopy interval based on path results - in 3 years if polyps are adenomatous and due to fair prep. Above findings were reviewed with the patient and colon polyps and GERD handouts were given in the discharge area BIOPSIES SHOWED: A.? Small bowel, biopsy:? Small intestinal mucosa within normal limits. B.? Stomach, antrum, biopsy:? Antral-type mucosa with mild chronic inactive inflammation; no Helicobacter organisms seen. C.? Esophagus, distal, biopsy: - Cardiac-type mucosa with moderate chronic active inflammation; no intestinal metaplasia seen. - Squamous mucosa within normal limits. D.? Colon, ascending, polypectomy:? Fragments of tubular adenoma; no high-grade dysplasia or carcinoma seen. TODAY'S VISIT: Denies heartburn or dysphagia Taking iron pills every other day. Denies recent change in bowel habits, constipation, diarrhea, black stools or rectal bleeding. Concerned about wt gain. She is interested in seeing Wt Management - took a class once. PAST VISITS: Had to go to urgent care for injury to the left thumb while cutting vegetables. Has to take her sister to an appt in [place] at 11:30 am EGD and biopsy results were reviewed with the patient Denies any problems after the colonoscopy. Admits to wt gain Has not donated blood for the past few yrs Pt was donating blood every few months in the past and has not donated in the past several months. Patient denies symptoms of abdominal pain, heartburn, dysphagia, nausea, vomiting, change in appetite. Admits to weight gain and would like to loose it. Denies recent change in bowel habits, constipation, diarrhea, black stools or rectal bleeding. Stools can be intermittently dark - attributes to diet. Patient denies major cardiac or pulmonary problems, loud snoring or sleep apnea Denies problems with anesthesia in the past. Denies being on chronic anticoagulation.? Takes Advil prn. 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 Never and has no children. Patient denies known family history of colon polyps, colon cancer or other GI malignancies. Dad had PAST GI HISTORY BY REVIEW OF MEDICAL RECORDS: 11/01/20 Pt was seen by Dr Valencia (1) Microcytic anemia Status: Acute This is a pleasant 75-year-old lady with recent history of microcytic anemia. ?Her iron studies are consistent with iron deficiency:? 41/424/05/05. ?Hemoglobin 8.6/hematocrit 30.4. ? DIFFERENTIAL DIAGNOSIS: 1. IRON DEFICIENCY ANEMIA: ? ? At her age most likely etiology is occult GI blood loss. ? ? Other possibility is iron malabsorption from something like celiac disease. 2. B12 OR FOLATE DEFICIENCY: ? ? She could have multifactorial anemia with additional low B12 from malabsorption or pernicious anemia. PLAN: I will proceed with the further workup. Will recheck her labs to see if the oral iron has started to take effect. Actually her H&H has improved up to 10.6 hemoglobin today. Will continue her on the oral iron for now.? If the blood count does not normalize, can arrange for IV iron. Will also request further GI evaluation. I have requested records from [facility] about her previous colonoscopy there by Dr. Wesley. She will return in a couple of months for a follow-up visit. If she gets more fatigued has other symptoms PFSH Medical History (Updated 04/22/23 @ 12:42 by Latesha Mitchell MD) Esophageal ulcer without bleeding COVID-19 vaccine administered Elevated cholesterol Carpal tunnel syndrome on both sides Microcytic anemia Dizziness Hypovitaminosis D Dyslipidemia Autoimmune thyroiditis Hypothyroidism Surgical History History of esophagogastroduodenoscopy (EGD) Hx of colonoscopy Hx of colonoscopy Total knee replacement status Family History Father Lymphoma Mother No problems noted. 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 Cognitive needs: No Hearing needs: No Vision needs: No Review of Systems Const All systems reviewed & are unremarkable except as noted in HPI and below Physical Exam Vital Signs: Last Vital Signs Pulse 84 04/22/23 12:43 BP 139/77 04/22/23 12:43 BMI result Body Mass Index 28.4 Const General: healthy appearing and no acute distress Nutritional Appearance: overweight Orientation/consciousness: patient oriented x3 Limitations: no limitations HEENT Head: Yes normal to inspection Ears: hearing grossly normal bilaterally Eyes Sclerae: sclerae normal Pupils: Equal, round and reactive pupils present Neck Neck: Yes normal visual inspection Chest Chest palpation & inspection: normal inspection of the chest Resp Effort & Inspection: normal respiratory effort Auscultation: clear to auscultation bilaterally Cardio Palpation: normal PMI Rate: regular rate Rhythm: regular rhythm Heart sounds: S1 normal heart sound present, S2 normal heart sound present and no murmurs GI Palpation (GI): Soft to palpation, nontender and No hepatosplenomegaly present Auscultation: normal bowel sounds Rectal Exam - Female: deferred Skin General skin exam: no rashes or lesions noted Neuro General: patient oriented x3, gait normal and moves all extremities Cranial nerves: Yes Equal, round and reactive pupils present Psych Appearance: grossly normal Mental Status: mental status grossly normal Assessment & Plan Assessment & Plan (1) History of colon polyps: Comment: 11/2020 colonoscopy showed diverticulosis and hemorrhoids. A 2 cms adenomatous polyp was removed from the ascending colon. Repeat colonoscopy is advised in 3 years (due 11/2023) Code(s): Z86.010 - Personal history of colonic polyps (2) Microcytic anemia: Comment: taking iron Code(s): D50.9 - Iron deficiency anemia, unspecified Plan 78 YF with autoimmune thyroiditis referred to GI for iron def anemia.? Pt denies any GI symptoms. Pt has been seen in GI in the past for JULISSA when she was donating blood. 11/2020 EGD showed a small hiatal hernia 34 to 36 cms and a focal ulcer at GE junction.? Same day colonoscopy showed diverticulosis and hemorrhoids.? A large (2 cms) adenomatous polyp was removed from the ascending colon. Repeat colonoscopy is advised in 3 years Follow-up EGD in 02/2021 showed focal ulcer at GE junction seen on past EGD had healed. Repeat EGD can be scheduled in 11/2023 with colonoscopy to fu on GERD and esophageal ulcers. Patient advised continue taking oral iron.? 04/22/23 Continue iron every other day Repeat labs Follow-up in 6 months (to schedule EGD and Colon on FU). Orders: Orders Ferritin Today D50.9 - Iron deficiency anemia, unspecified Coding Level of Care Code Est Pt Level 4 (52818) Diagnoses History of colon polyps Z86.010 Microcytic anemia D50.9 Time Spent (min) 23
[2023-04-22 12:43] VITALS: BP 139/77; PULSE 84; BMI 28.4
== END 2023-04-22 13:03 | disposition home or self-care (01) ==
PROVIDERS: PCP Internal Medicine; Visit Provider Internal Medicine Gastroenterology
DX: D50.9 Iron deficiency anemia, unspecified (principal); Z86.010 Personal history of colon polyps
CPT/HCPCS: 99214

== ENCOUNTER → 2023-04-22 12:34 | Outpatient (BNVA) | payer MEDICARE, SELFPAY | PROVIDERS: PCP Internal Medicine; Visit Provider Internal Medicine Gastroenterology | DX: D50.9 Iron deficiency anemia, unspecified (principal); Z86.010 Personal history of colon polyps | CPT/HCPCS: 99212 ==

== ENCOUNTER 2023-05-11 12:29 | Outpatient (REF) | payer MEDICARE, SELFPAY ==
[2023-05-11 13:51] LABS: Ferritin 101 ng/mL (10-250)
== END 2023-05-11 12:30 | disposition home or self-care (01) ==
LOC: HO.LAB 12:29
PROVIDERS: PCP Internal Medicine; Visit Provider Internal Medicine Gastroenterology
DX: D50.9 Iron deficiency anemia, unspecified (principal)
CPT/HCPCS: 36415; 82728

== ENCOUNTER 2023-09-28 12:59 | Outpatient (REF) | payer MEDICARE, SELFPAY ==
--- NOTE | ~2023-09-28 | MM_ITS ---
EXAMINATION: BONE DENSITOMETRY CLINICAL INDICATION: Menopausal and female climacteric states. COMPARISON: This is the patient's baseline examination. TECHNIQUE: Using a [employer] DXA System (software version: 13.1) manufactured by [employer], dual-energy x-ray absorptiometry was performed of the lumbar spine and left hip. The images are of good technical quality. Summary results are attached. FINDINGS: LEFT FEMUR, NECK: BMD 0.856 g/cm2, Z-score 0.5, T-score -1.3, osteopenia. LEFT FEMUR, TOTAL: BMD 0.905 g/cm2, Z-score 0.8, T-score -0.8, normal. AP SPINE L1-L2 (excluding L3 and L4): The data of L1-L4 has been changed to exclude the L3 and L4 vertebral bodies, because degenerative sclerosis at these levels may cause overestimation of lumbar spine density. BMD 1.020 g/cm2, Z-score 0.1, T-score -1.2, osteopenia. IDENTIFIED RISK FACTORS: Height loss, menopause. HISTORY OF FRACTURE: None listed. MEDICATIONS: Calcium, vitamin D. MM/XR DEXA axial skeleton IMPRESSION: 1. DIAGNOSIS: Osteopenia based on the lowest T-score value of -1.3 in the femoral neck applying World Health Organization criteria. 2. 10-YEAR FRACTURE RISK PREDICTION, FRAX: Major osteoporotic fracture (clinical spine, forearm, hip or shoulder) 12.3%. Hip fracture 2.7%. 3. Treatment Recommendations: NOF guidelines recommend consideration for treatment in postmenopausal women and men age 50 and older presenting with the following: -A hip or vertebral (clinical or morphometric) fracture. -T-score less than or equal to -2.5 at the femoral neck or spine after appropriate evaluation to exclude secondary causes. -Low bone mass at the hip or spine and a 10-year fracture probability by FRAX of greater than or equal to 3% for hip fracture or greater than or equal to 20% for major osteoporotic fracture based on the [place] adapted WHO algorithm. 4. Other Recommendations: All treatment decisions require clinical judgment and consideration of individual patient factors, including patient preferences, comorbidities, previous drug use, risk factors not captured in the FRAX model (e.g. frailty, falls, vitamin D deficiency, increased bone turnover, interval significant decline in bone density) and possible under or overestimation of fracture risk by FRAX. Additional medical evaluation for secondary cause of low bone mineral density may be appropriate. FUTURE SCAN RECOMMENDATION: People with diagnosed cases of osteoporosis or at high risk for fracture should have regular bone mineral density tests. For patients eligible for Medicare, routine testing is allowed once every 2 years. The testing frequency can be increased to one year for patients who have rapidly progressing disease, those who are receiving or discontinuing medical therapy to restore bone mass, or have additional risk factors.
== END 2023-09-28 13:00 | disposition home or self-care (01) ==
LOC: HO.MAMMO 12:59
PROVIDERS: PCP Internal Medicine; Visit Provider Nurse Practitioner Family
DX: Z12.31 Encounter for screening mammogram for malignant neoplasm of breast (principal); Z13.820 Encounter for screening for osteoporosis; Z78.0 Asymptomatic menopausal state
CPT/HCPCS: 77063; 77067; 77080

== ENCOUNTER → 2023-09-28 13:01 | Outpatient (BNV) | payer MEDICARE, SELFPAY | PROVIDERS: PCP Internal Medicine; Visit Provider Radiology Diagnostic Radiology | DX: Z12.31 Encounter for screening mammogram for malignant neoplasm of breast (principal) | CPT/HCPCS: 77063; 77067 ==

== ENCOUNTER 2023-10-11 14:24 | Outpatient (AMB) | payer MEDICARE, SELFPAY ==
--- NOTE | 2023-10-11 14:28 | A.OFFPC_ITS ---
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 Accompanied by: Self / Same As Patient Allergies No Known Allergies Allergy (Verified 10/11/23 14:40) Medication List - Last Reconciled 10/11/23 by Gemma Taylor MD ascorbic acid (vitamin C) 500 mg PO DAILY 90 days atorvastatin 10 mg PO DAILY cetirizine 10 mg PO DAILY PRN 90 days cholecalciferol (vitamin D3) 50 mcg PO DAILY 90 days ferrous sulfate 325 mg PO Q OTHER DAY 90 days levothyroxine 75 mcg PO DAILY 90 days meclizine 25 mg PO DAILY PRN 90 days omeprazole 20 mg PO DAILY 60 days sertraline 25 mg PO DAILY 30 days Tobacco use date assessed: 10/11/23 Fall risk assessment: No Falls in past year Last assessed Fall Risk: 10/11/23 Dental Screening Dental Screen Date: 10/11/23 Did you have a dental visit in the last 12 months?: Yes Did you have a dental problem in the last 6 months where you did not have access to dental care?: No Was dental information given to patient?: Patient has dentist HPI HPI Comments History of Present Illness Details This is an 78-year-old female with autoimmune thyroiditis, dyslipidemia, osteopenia low vitamin-D that comes today for follow-up on her conditions. Her sister in January and she was living with her. She had to move to another apartment. The niece, which is her healthcare proxy, has noticed some short-term memory loss. She is alone in the room. She is awake, alert and oriented to time, person and place. TSH and lipid panel as well as vitamin-D levels were ordered to be done this week. She had a bone density recently showing osteopenia and calcium was added to her regimen. She also has anemia and takes ferrous sulfate every other day. Denies any active bleeding. CBC will be order. [facility] Medical History (Updated 10/11/23 @ 14:49 by Gemma Taylor MD) Esophageal ulcer without bleeding COVID-19 vaccine administered Elevated cholesterol Carpal tunnel syndrome on both sides Microcytic anemia Dizziness Hypovitaminosis D Dyslipidemia Autoimmune thyroiditis Hypothyroidism Surgical History History of esophagogastroduodenoscopy (EGD) Hx of colonoscopy Hx of colonoscopy Total knee replacement status Family History Father Lymphoma Mother No problems noted. 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 1. Little interest or pleasure in doing things: not at all 2. Feeling down, depressed, or hopeless: not at all 3. Trouble falling or staying asleep, or sleeping too much: not at all 4. Feeling tired or having little energy: not at all 5. Poor appetite or overeating: not at all 6. Feeling bad about yourself - or that you are a failure or have let yourself or your family down: not at all 7. Trouble concentrating on things, such as reading the newspaper or watching television: not at all 8. Moving or speaking so slowly that other people could have noticed. Or the opposite - being so fidgety or restless that you have been moving around a lot more than usual: not at all 9. Thoughts that you would be better off or of hurting yourself in some way: not at all Total score: 0 Depression Screening Interpretation: Negative Depression Screening Done: Yes 76135 - PHQ-9 Billing: Yes Source: Developed by Drs. Ricardo Baker, Sally García, Clarence Samson and colleagues, with an educational melissa from [employer]. Thrive Questionnaire Date Thrive assessed: 10/11/23 I am a: Patient What is your living situation today?: I have a steady place to live Within the past 12 months, did the food you bought not last and you didn't have the money to get more?: Never true Within the past 12 months, did you worry whether your food would run out before you got money to buy more?: Never true Do you have trouble paying for medicines?: No Do you have trouble getting transportation to medical appointments?: No Do you have trouble paying your heating and electricity bill?: No Do you have trouble taking care of your child, family member or friend?: No Do you have trouble with day-to-day activities such as bathing, preparing meals, shopping, managing finances, etc.?: No Are you currently unemployed and looking for a job?: No Are you interested in more education?: No Please select the resources that you would like help with: None Currently or been in a relationship where the following occur: no concerns reported THRIVE Score: 0 AUDIT C Alcohol Use Questionnaire (AUDIT-C) 1. How often do you have a drink containing alcohol?: Never Total Score: 0 Score Reviewed/Action Taken: No JERRELL-7 AMB Questionnaire JERRELL-7 Date JERRELL - 7 assessed: 10/11/23 Feeling nervous, anxious, or on edge: 0 = Not at all Not being able to stop or control worryin = Not at all Worrying too much about different things: 0 = Not at all Trouble relaxin = Not at all Being so restless that it is hard to sit still: 0 = Not at all Becoming easily annoyed or irritable: 0 = Not at all Feeling afraid as if something awful might happen: 0 = Not at all Total JERRELL-7 score (0-4 normal; 5-9 mild; 10-14 moderate; 15-21 severe): 0 Source: Developed by Drs. Ricardo Baker, Sally García, Clarence Samson and colleagues, with an educational melissa from [employer]. JERRELL-7 Assessment Billing JERRELL-7 Assessment Tool: JERRELL-7 Assessment 36681 Review of Systems Const All systems reviewed & are unremarkable except as noted in HPI and below Eyes Reports no additional complaints, Denies change in vision and Denies other visu al disturbances Card Denies chest pain at rest, Denies chest pain with activity, Denies edema, Denies irregular heart rhythm, Denies claudication, Denies dyspnea, Denies dyspnea on exertion, Denies orthopnea, Denies paroxysmal nocturnal dyspnea and Denies slow heart rate Resp Denies cough, Denies dyspnea and Denies dyspnea on exertion GI Denies abdominal pain, Denies change in bowel habits, Denies excessive flatus, Denies nausea and Denies vomiting Denies urinary incontinence, Denies urinary hesitancy and Denies urinary urgency Physical exam (Primary Care) Vital Signs: Last Vital Signs BP 132/80 10/11/23 14:29 BMI result Body Mass Index 29.5 Tobacco/Smoking Status: Tobacco use Status Tobacco use date assessed 10/11/23 10/11/23 14:35 Patient Tobacco Use Status Never used Tobacco 10/11/23 14:35 e-Cigarette/Vaping Use Never Used 10/11/23 14:35 PHQ-9: PHQ-9 Score PHQ-9: Total score 0 10/11/23 14:38 Depression Screening Interpretation: Negative Thrive Assessment: Date of Thrive Assessment Date Thrive assessed 10/11/23 10/11/23 14:38 Currently or been in a relationship where the following occur: no concerns reported Const Orientation/consciousness: patient oriented x3 Resp Effort & Inspection: normal respiratory effort Auscultation: clear to auscultation bilaterally Cardio Jugular venous distension: no JVD Rate: regular rate Rhythm: regular rhythm Heart sounds: S1 normal heart sound present and S2 normal heart sound present Neuro General: patient oriented x3 and no focal motor deficits Extrem General: Yes full ROM Psych Appearance: grossly normal Assessment and Plan Assessment & Plan (1) Osteopenia: Code(s): M85.80 - Other specified disorders of bone density and structure, unspecified site Plan: Start calcium. Continue vitamin-D. (2) Autoimmune thyroiditis: Code(s): E06.3 - Autoimmune thyroiditis Plan: Continue levothyroxine. Monitor TSH. (3) Dyslipidemia: Code(s): E78.5 - Hyperlipidemia, unspecified Plan: Continue statins. Repeat lipid panel. (4) Hypovitaminosis D: Code(s): E55.9 - Vitamin D deficiency, unspecified Plan: Continue vitamin-D supplements. (5) Microcytic anemia: Comment: taking iron Code(s): D50.9 - Iron deficiency anemia, unspecified Plan: Continue ferrous sulfate every other day. Repeat CBC. Orders: Orders Vitamin D 25-OH Total Today E55.9 - Vitamin D deficiency, unspecified Vitamin B12 and Folate Today E53.8 - Deficiency of other specified B group vitamins Lipid Panel Today E78.5 - Hyperlipidemia, unspecified Free T4 (Free Thyroxine) Today E06.3 - Autoimmune thyroiditis Complete Blood Count Auto Diff Today D64.9 - Anemia, unspecified IRON PROFILE Today D64.9 - Anemia, unspecified Comprehensive [place]. Panel Fast Today E78.5 - Hyperlipidemia, unspecified Thyroid Stimulating Hormone Today E06.3 - Autoimmune thyroiditis Medications: New calcium carbonate 600 mg PO BID 90 days 180 tabs 1RF M85.80 - Other specified disorders of bone density and structure, unspecified site Discontinued meclizine Discontinued Reason: No Longer Medically Relevant 25 mg PO DAILY 90 days PRN 90 tabs 1RF dizziness Coding Level of Care Code Est Pt Level 4 (03833) Diagnoses Osteopenia M85.80 Autoimmune thyroiditis E06.3 Dyslipidemia E78.5 Hypovitaminosis D E55.9 Microcytic anemia D50.9 Additional Codes JERRELL-7 Assessment Billing - JERRELL-7 Assessment Tool: JERRELL-7 Assessment 60720 ([id number]) Time Spent (min) 24
[2023-10-11 14:29] VITALS: BP 132/80; BMI 29.5
== END 2023-10-11 14:53 | disposition home or self-care (01) ==
LOC: HO.HMGH 14:24
PROVIDERS: PCP Internal Medicine; Visit Provider Internal Medicine
DX: M85.80 Other specified disorders of bone density and structure, unspecified site (principal); E06.3 Autoimmune thyroiditis; E78.5 Hyperlipidemia, unspecified; E55.9 Vitamin D deficiency, unspecified; D50.9 Iron deficiency anemia, unspecified
CPT/HCPCS: 99214

== ENCOUNTER → 2024-01-27 12:08 | Outpatient (BNVA) | payer MEDICARE, SELFPAY | PROVIDERS: PCP Internal Medicine; Visit Provider Internal Medicine Gastroenterology | DX: K22.10 Ulcer of esophagus without bleeding (principal); K21.9 Gastro-esophageal reflux disease without esophagitis; D50.9 Iron deficiency anemia, unspecified; Z86.010 Personal history of colon polyps | CPT/HCPCS: 99212 ==

== ENCOUNTER → 2024-01-27 12:08 | Outpatient (AMB) | payer MEDICARE, SELFPAY ==
--- NOTE | 2024-01-27 12:19 | MHC.OFFVIS ---
Vital Signs 01/27/24 12:21 Height 5 ft 6 in Weight 184 lb BMI 29.7 BP 140/82 H Blood Pressure Location Lt brachial Position Sitting Pulse 66 Intake Visit Reasons: COLON POLYPS Intake Note: Patient follow up for Colon polyps Patient denies any GI issues. 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 Accompanied by: Self / Same As Patient Allergies No Known Allergies Allergy (Verified 01/27/24 12:18) Medication List - Last Reconciled 01/27/24 by Latesha Mitchell MD ascorbic acid (vitamin C) 500 mg PO DAILY 90 days atorvastatin 10 mg PO DAILY calcium carbonate 600 mg PO BID 90 days cetirizine 10 mg PO DAILY PRN 90 days cholecalciferol (vitamin D3) 50 mcg PO DAILY 90 days ferrous sulfate 325 mg PO Q OTHER DAY 90 days levothyroxine 75 mcg PO DAILY 90 days omeprazole 20 mg PO DAILY 60 days sertraline 25 mg PO DAILY 30 days HPI HPI COLON POLYPS: Details: GI CLINIC VISIT FOR THIS 78 YF FOR FU OF JULISSA, GERD and colon polyps. ENDOSCOPIC STUDIES: 03/04/21 EGD SHOWED: Esophagus:?GE junction at 34 cms, small hiatal hernia 34 to 36 cms.? Focal ulcer at GE junction seen on last EGD appears to have healed. Stomach:?Mild gastric erythema. Biopsies were obtained. Grade 2 flap valve on retroflexed examination of the cardia. 11/2020 EGD AND COLONOSCOPY SHOWED:ESOPHAGUS:? Small hiatal hernia 34 to 36 cms.? Focal ulcer at GE junction.? 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 STOMACH:? Gastritis DUODENUM:? Normal - biopsied to check for celiac sprue Colonoscopy Findings:? One large polyp removed Moderate diverticulosis seen in the sigmoid colon Plan:? Await pathology results Patient has an appointment on 12/26/20 in the GI Clinic with Latesha Mitchell M.D.. Repeat Colonoscopy interval based on path results - in 3 years if polyps are adenomatous and due to fair prep. Above findings were reviewed with the patient and colon polyps and GERD handouts were given in the discharge area BIOPSIES SHOWED: A.? Small bowel, biopsy:? Small intestinal mucosa within normal limits. B.? Stomach, antrum, biopsy:? Antral-type mucosa with mild chronic inactive inflammation; no Helicobacter organisms seen. C.? Esophagus, distal, biopsy: - Cardiac-type mucosa with moderate chronic active inflammation; no intestinal metaplasia seen. - Squamous mucosa within normal limits.D.? Colon, ascending, polypectomy:? Fragments of tubular adenoma; no high-grade dysplasia or carcinoma seen. TODAY'S VISIT: Patient follow up for Colon polyps Patient denies any GI issues. Complains of feeling unsteady on her feet. Has been less active since she moved to an apartment. Shared a house with her sister who . PAST VISITS: Denies heartburn or dysphagia Taking iron pills every other day. Denies recent change in bowel habits, constipation, diarrhea, black stools or rectal bleeding. Concerned about wt gain. She is interested in seeing Wt Management - took a class once. Had to go to urgent care for injury to the left thumb while cutting vegetables. Has to take her sister to an appt in [place] at 11:30 am EGD and biopsy results were reviewed with the patient Denies any problems after the colonoscopy. Admits to wt gain Has not donated blood for the past few yrs Pt was donating blood every few months in the past and has not donated in the past several months. Patient denies symptoms of abdominal pain, heartburn, dysphagia, nausea, vomiting, change in appetite. Admits to weight gain and would like to loose it. Denies recent change in bowel habits, constipation, diarrhea, black stools or rectal bleeding. Stools can be intermittently dark - attributes to diet. Patient denies major cardiac or pulmonary problems, loud snoring or sleep apnea Denies problems with anesthesia in the past. Denies being on chronic anticoagulation.? Takes Advil prn. 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 Never and has no children. Patient denies known family history of colon polyps, colon cancer or other GI malignancies. Dad had PAST GI HISTORY BY REVIEW OF MEDICAL RECORDS: 11/01/20 Pt was seen by Dr Valencia (1) Microcytic anemiaStatus: Acute This is a pleasant 75-year-old lady with recent history of microcytic anemia. ?Her iron studies are consistent with iron deficiency:? 41/424/05/05. ?Hemoglobin 8.6/hematocrit 30.4. ? DIFFERENTIAL DIAGNOSIS: 1. IRON DEFICIENCY ANEMIA:? ? At her age most likely etiology is occult GI blood loss. ? ? Other possibility is iron malabsorption from something like celiac disease. 2. B12 OR FOLATE DEFICIENCY:? ? She could have multifactorial anemia with additional low B12 from malabsorption or pernicious anemia. PLAN: I will proceed with the further workup. Will recheck her labs to see if the oral iron has started to take effect. Actually her H&H has improved up to 10.6 hemoglobin today. Will continue her on the oral iron for now.? If the blood count does not normalize, can arrange for IV iron. Will also request further GI evaluation. I have requested records from [facility] about her previous colonoscopy there by Dr. Wesley. She will return in a couple of months for a follow-up visit. [facility] Medical History Esophageal ulcer without bleeding COVID-19 vaccine administered Elevated cholesterol Carpal tunnel syndrome on both sides Microcytic anemia Dizziness Hypovitaminosis D Dyslipidemia Autoimmune thyroiditis Hypothyroidism Surgical History History of esophagogastroduodenoscopy (EGD) Hx of colonoscopy Hx of colonoscopy Total knee replacement status Family History Father Lymphoma Mother No problems noted. 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 Cognitive needs: No Hearing needs: No Vision needs: No Review of Systems Const All systems reviewed & are unremarkable except as noted in HPI and below Physical Exam Vital Signs: Last Vital Signs Pulse 66 01/27/24 12:21 BP 140/82 H 01/27/24 12:21 BMI result Body Mass Index 29.7 Const General: healthy appearing and no acute distress Nutritional Appearance: overweight Orientation/consciousness: patient oriented x3 Limitations: no limitations HEENT Head: Yes normal to inspection Ears: hearing grossly normal bilaterally Eyes Sclerae: sclerae normal Pupils: Equal, round and reactive pupils present Neck Neck: Yes normal visual inspection Chest Chest palpation & inspection: normal inspection of the chest Resp Effort & Inspection: normal respiratory effort Auscultation: clear to auscultation bilaterally Cardio Palpation: normal PMI Rate: regular rate Rhythm: regular rhythm Heart sounds: S1 normal heart sound present, S2 normal heart sound present and no murmurs GI Palpation (GI): Soft to palpation, nontender and No hepatosplenomegaly present Auscultation: normal bowel sounds Rectal Exam - Female: deferred Skin General skin exam: no rashes or lesions noted Neuro General: patient oriented x3, gait normal and moves all extremities Cranial nerves: Yes Equal, round and reactive pupils present Psych Appearance: grossly normal Mental Status: mental status grossly normal Assessment & Plan Assessment & Plan (1) History of colon polyps: Comment: 11/2020 colonoscopy showed diverticulosis and hemorrhoids. A 2 cms adenomatous polyp was removed from the ascending colon. Repeat colonoscopy is advised in 3 years (due 11/2023) Code(s): Z86.010 - Personal history of colonic polyps Category: Medical (2) Esophageal ulcer: Code(s): K22.10 - Ulcer of esophagus without bleeding Category: Medical (3) GERD (gastroesophageal reflux disease): Code(s): K21.9 - Gastro-esophageal reflux disease without esophagitis Category: Medical (4) Microcytic anemia: Comment: taking iron Code(s): D50.9 - Iron deficiency anemia, unspecified Category: Medical Plan 78 YF with autoimmune thyroiditis referred to GI for iron def anemia.? Pt denies any GI symptoms. Pt has been seen in GI in the past for JULISSA when she was donating blood. 11/2020 EGD showed a small hiatal hernia 34 to 36 cms and a focal ulcer at GE junction.? Same day colonoscopy showed diverticulosis and hemorrhoids.? A large (2 cms) adenomatous polyp was removed from the ascending colon. Repeat colonoscopy is advised in 3 years Follow-up EGD in 02/2021 showed focal ulcer at GE junction seen on past EGD had healed. Repeat EGD can be scheduled in 11/2023 with colonoscopy to fu on GERD and esophageal ulcers. Patient advised continue taking oral iron.? 04/22/23 Continue iron every other day Repeat labs 01/27/24 Pt advised to schedule an upper endoscopy (FU of esophageal ulcer) and a colonoscopy (surveillance for colon polyps) Follow-up in 7 months after EGD and colon. Orders: Orders Ferritin Today D50.9 - Iron deficiency anemia, unspecified Medications: New polyethylene glycol 3350 (Miralax) Mix Miralax with 64 oz(8 cups) of Crystal light. Take 2 tablets of Dulcolax qt 12 pm. Wait to have your 1st bowel movement, then begin drinking Miralax. Drink a glass of Miralax every 10-15 minutes until you are finished. You will drink at least another 4 cups of clear liquid of your choice over the next 2 hours. Please drink as many clear liquids as possible You may have clear liquids up to four hours before your procedure 17 grams PO DAILY 1 day 238 grams 0RF bisacodyl (Dulcolax (bisacodyl)) Take 4 tablets at 12 pm the day before colonoscopy appointment 10 mg (2 x 5 mg) PO ONCE 2 days 4 tabs 0RF colon prep Coding Level of Care Code Est Pt Level 3 (47517) Diagnoses History of colon polyps Z86.010 Esophageal ulcer K22.10 GERD (gastroesophageal reflux disease) K21.9 Microcytic anemia D50.9 Time Spent (min) 20
[2024-01-27 12:21] VITALS: BP 140/82; PULSE 66; BMI 29.7
== END ==
PROVIDERS: PCP Internal Medicine; Visit Provider Internal Medicine Gastroenterology
DX: K22.10 Ulcer of esophagus without bleeding (principal); K21.9 Gastro-esophageal reflux disease without esophagitis; Z12.11 Encounter for screening for malignant neoplasm of colon; Z86.010 Personal history of colon polyps
CPT/HCPCS: 99213

== ENCOUNTER → 2024-03-28 10:48 | Outpatient (RCR) | payer MEDICARE, SELFPAY ==
[2020-11-01 12:57] VITALS: BP 147/77; PULSE 74; RESP 12; TEMP 36.8; O2SAT 98; BMI 29.1
--- NOTE | 2020-11-01 13:32 | PM.HEMONCCN ---
Subjective - Subjective Chief complaint: Consult for: Anemia. Patient: new to practice Consult date: 11/01/20 Requesting Physician: Didier. Primary Care Provider: Gemma Taylor MD Medical Summary: DIAGNOSIS: IRON DEFICIENCY ANEMIA. HPI - Consult Narrative Reason for consult: Consult for: Iron deficiency anemia. Narrative: Ruthann Ellison is a pleasant 75 year old lady, who tells me that recently she had felt more fatigued. Than 1 morning she got up too fast. Her head started to spin. She called her primary and went in to see her. From 10/16, Her CBC revealed WBC: 6.9, HGB 8.6, HCT 30.4, MCV 75, PLT 293. Iron studies: 41/424/05/05. She was then started on oral iron 325 mg twice a day. She says she feels some what better. ROS: She has been rather tired. No fever nor chills. Appetite has been too good. She has gained weight. Prior to this she was in the weight loss program under the care of Rosemary Hoffman. She denies any headache. She gets dizzy on bending down or getting up. No chest pain or trouble breathing. She denies cough no sputum. No abdominal pain nausea vomiting heartburn indigestion. Her bowels are regular. No gross blood in the stools. She tells me she had a colonoscopy by Dr. Wesley a few years ago at [facility]. She enjoys a good appetite. She has gained weight. Denies urinary complaints. No joint pains muscle pain. Denies focal weakness. No depression. No rashes nor pruritus. Family history: Her parents were healthy. She has a younger sister without any health issues. 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 She is single. Has no children. She smoked briefly for a year in her 20s just on the weekends. She did not inhale. She drinks socially. Wine with dinner. Review of Systems - Constitutional Reports no additional constitutional complaints, Reports lack of energy, Reports weight gain - Eyes Reports no additional eye complaints - ENT Reports no additional ear, nose, mouth, and throat complaints - Cardiovascular Reports no additional cardiovascular complaints - Respiratory Reports no additional respiratory complaints - Gastrointestinal Reports no additional gastrointestinal complaints - Genitourinary Reports no additional female genitourinary complaints - Musculoskeletal Reports no additional musculoskeletal complaints - Integumentary/Breasts Skin/Breast: Reports no additional skin complaints - Neurologic Reports no additional neurologic complaints - Psychiatric Reports no additional psychiatric complaints - Endocrine Reports no additional endocrine complaints - Hematologic/Lymphatic Reports no additional hematologic/lymphatic complaints - Allergic/Immunologic Reports no additional allergic/immunologic complaints Oncology Screenings - ECOG Performance Status ECOG Performance Status: 0 [facility] Medical History: Medical History (Last Updated 11/01/20 @ 13:00 by Lucina Phelps) Autoimmune thyroiditis Carpal tunnel syndrome on both sides Dizziness Dyslipidemia Hypothyroidism Hypovitaminosis D Microcytic anemia Functional capacity: uses cane/walker Patient : No Family History: Family History (Last Reviewed 10/17/20 @ 10:38 by Gemma Taylor MD) Father Lymphoma Mother No problems noted. Sister In good health Surgical History: Surgical History (Last Reviewed 10/17/20 @ 10:38 by Gemma Taylor MD) Total knee replacement status Social History: Social History (Last Updated 11/01/20 @ 13:01 by Lucina Phelps) Alcohol History: Alcohol intake: current Alcohol History Details: Alcohol intake frequency: holiday/special occasion Alcohol type: wine Tobacco History: Smoking Status: Never smoker Tobacco Type: Cigarette Substance Use History: Use of substances other than those prescribed or required for medical reasons: No Nutrition Assessment: Patient : No Smoking status: Never smoker Home Medications and Allergies Home Medications Medication Instructions Recorded Confirmed Type ascorbate calcium (vitamin C) 500 500 mg PO DAILY 08/14/20 11/01/20 History mg tablet Allergies Allergy/AdvReac Type Severity Reaction Status Date / Time No Known Allergies Allergy Verified 10/17/20 10:37 Physical Exam Vital signs: Vital Signs Temp 98.2 F 11/01/20 12:57 Pulse 74 11/01/20 12:57 Resp 12 11/01/20 12:57 BP 147/77 H 11/01/20 12:57 Pulse Ox 98 11/01/20 12:57 Intake & Output 10/31/20 11/01/20 11/01/20 18:59 06:59 18:59 Other: Weight 81.9 kg [place] Weight in Grams [id number] Weight 81.9 kg - Constitutional Present: no acute distress - Routine HEENT Exam Head: Present: normal inspection ENT: Present: mucous membranes moist - Routine Neck Exam Present: supple - Routine Respiratory Exam Present: CTAB - Routine Cardiovascular Exam Cardiovascular: Present: RRR, S1, S2 - Routine Abdominal Exam Present: soft, nontender - Routine Rectal Exam Patient deferred: digital exam - Routine Extremities Exam Present: normal inspection - Routine Skin Exam Present: intact - Routine Neurological Exam Present: alert, oriented X3 - Detailed Neurological Exam: Coma Scale Eye Opening: Spontaneous (4) Verbal Response: Oriented (5) Motor Response: Obeys commands (6) [place] Coma Scale Total: 15 Hem/Onc Consult Result - Labs CBC & Chem 7: 11/01/20 13:34 11/01/20 13:34 Assessment and Plan (1) Microcytic anemia Status: Acute This is a pleasant 75-year-old lady with recent history of microcytic anemia. Her iron studies are consistent with iron deficiency: 41/424/05/05. Hemoglobin 8.6/hematocrit 30.4. DIFFERENTIAL DIAGNOSIS: 1. IRON DEFICIENCY ANEMIA: At her age most likely etiology is occult GI blood loss. Other possibility is iron malabsorption from something like celiac disease. 2. B12 OR FOLATE DEFICIENCY: She could have multifactorial anemia with additional low B12 from malabsorption or pernicious anemia. PLAN: I will proceed with the further workup. Will recheck her labs to see if the oral iron has started to take effect. Actually her H&H has improved up to 10.6 hemoglobin today. Will continue her on the oral iron for now. If the blood count does not normalize, can arrange for IV iron. Will also request further GI evaluation. I have requested records from [facility] about her previous colonoscopy there by Dr. Wesley. She will return in a couple of months for a follow-up visit. If she gets more fatigued has other symptoms she will call me. Thank you, CC: Dr. Velásquez. Shabana Morales.
[2020-11-01 13:44] LABS: Basophils Percent Auto 0.7 % (0-2); Eosinophils Absolute Auto 0.2 X10*3/uL (0.0-0.4); Eosinophils Percent Auto 2.6 % (0-4); Hematocrit 36.1 % (37-47); Hemoglobin 10.7 g/dl (12.0-16.0); Imm Gran Abs Auto 0.02 X10*3/uL (0.00-0.03); Imm Gran Pct Auto 0.3 % (0.0-0.4); Lymphocytes Absolute Auto 0.7 X10*3/uL (1.2-4.9); MANUAL DIFF FLAG SCAN; Mean Corpuscular HGB Conc 29.6 g/dl (31.0-35.0); Mean Corpuscular Hemoglobin 24.3 pg (27.0-33.0); Mean Platelet Volume 10.3 fL (9.4-12.3); Monocytes Absolute Auto 0.6 X10*3/uL (0.1-1.2); Monocytes Percent Auto 10.8 % (2-11); Neutrophils Absolute Auto 4.2 X10*3/uL (2.0-8.3); Neutrophils Percent Auto 73.6 % (45-73); Platelet Count 257 X10*3/uL (160-400); Red Cell Distribution Width 29.2 % (11.0-16.0); SCAN SMEAR FLAG 1; White Blood Count 5.7 X10*3/uL (4.8-10.8)
[2020-11-01 14:02] LABS: SLIDE REVIEW VERIFIED
[2020-11-01 14:16] LABS: Alanine Aminotransferase 19 U/L (0-31); Albumin Level 4.3 g/dL (3.5-5.0); Alkaline Phosphatase 75 U/L (39-117); Anion Gap 12 (12-20); Aspartate Amino Transferase 19 U/L (5-31); Bilirubin Total 0.6 mg/dL (0.0-1.0); Blood Urea Nitrogen 18 mg/dL (9-16); Calcium 9.2 mg/dL (8.4-10.2); Carbon Dioxide 24 mmol/L (22-29); Chloride 108 mmol/L (96-108); Creatinine Clr Calc Pharmacy 59.1; Estimated Glomerular Filt Rate > 60; Glucose Random 81 mg/dL (60-115); Potassium 4.4 mmol/L (3.3-5.1); Sodium 140 mmol/L (135-145); Total Protein 6.9 g/dL (6.5-8.0)
[2020-11-01 14:40] LABS: Lactate Dehydrogenase 232 U/L (122-220)
--- NOTE | 2020-11-01 14:48 | MHC.HEMONCMA ---
Patient came in for consult today, states that she is doing well. Clinical summary was reviewed and updated. PAtient had labs and will return in 2 months for a follow up. She was also referred to GI, they ask for the office note and they will contact the patient with an appt.
[2020-11-01 14:50] LABS: Folate 15.1 ng/mL (> or = 4.0); Vitamin B12 503 pg/mL (200-900)
[2020-11-01 15:02] LABS: Ferritin 50 ng/mL (10-250)
[2020-11-02 13:11] LABS: Transglutaminase IgA 1 U/mL
[2021-01-07 13:17] VITALS: BP 199/86; PULSE 68; RESP 18; TEMP 36.3; O2SAT 98; BMI 30.2
[2021-01-07 13:23] VITALS: BP 160/86
--- NOTE | 2021-01-07 13:30 | P.PNHO_ITS ---
Medical Summary - Medical Summary Date of Service: 01/07/21 Chief complaint: Follow-up for: Iron deficiency anemia. Medical Summary: DIAGNOSIS: IRON DEFICIENCY ANEMIA. CURRENT THERAPY: Oral iron and vitamin-C. Interval History Interval history: Ruthann Ellison is a pleasant 75 year old lady, here for a follow-up visit. She has been doing very well. She tells me her energy level is improved significantly. She denies any headache, nor dizziness. No chest pain or trouble breathing. She denies cough no sputum. No abdominal pain nausea vomiting heartburn indigestion. Her bowels are regular. No gross blood in the stools. She tells me she had a colonoscopy by Dr. Wesley a few years ago at [facility]. She enjoys a good appetite. She has gained weight. Denies urinary complaints. No joint pains muscle pain. Denies focal weakness. No depression. No rashes nor pruritus. Previous history: She tells me that recently she had felt more fatigued. Than 1 morning she got up too fast. Her head started to spin. She called her primary and went in to see her. From 10/16, Her CBC revealed WBC: 6.9, HGB 8.6, HCT 30.4, MCV 75, PLT 293. Iron studies: 41/424/05/05. She was then started on oral iron 325 mg twice a day. She says she feels some what better. Pt has been seen in GI in the past for JULISSA when she was donating blood. 11/2020 EGD showed a small hiatal hernia 34 to 36 cms and a focal ulcer at GE junction. Same day colonoscopy showed diverticulosis and hemorrhoids. A large adenomatous polyp was removed. Repeat colonoscopy is advised in 3 years. Patient was advised to schedule a follow-up EGD in 02/2021 to confirm esophageal ulcer has healed. Family history: Her parents were healthy. She has a younger sister without any health issues. 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 She is single. Has no children. She smoked briefly for a year in her 20s just on the weekends. She did not inhale. She drinks socially. Wine with dinner. Review of Systems - Constitutional Reports system reviewed and no additional complaints, except as documented, Denies lack of energy, Denies malaise, Denies weight loss - Eyes Reports system reviewed and no additional complaints, except as documented - ENT Reports system reviewed and no additional complaints, except as documented, Denies dysphagia - Cardiovascular Reports system reviewed and no additional complaints, except as documented, Denies fainting - Respiratory Reports no additional respiratory complaints - Gastrointestinal Reports system reviewed and no additional complaints, except as documented, Denies abdominal pain, Denies black, tarry stools, Denies bloating, Denies change in bowel habits, Denies constipation, Denies loose stools - Genitourinary Reports no additional female genitourinary complaints, Denies frequent nighttime urination - Musculoskeletal Reports system reviewed and no additional complaints, except as documented - Integumentary/Breasts Skin/Breast: Reports no additional skin complaints - Neurologic Reports system reviewed and no additional complaints, except as documented - Psychiatric Reports system reviewed and no additional complaints, except as documented - Endocrine Reports no additional endocrine complaints - Hematologic/Lymphatic Reports system reviewed and no additional complaints, except as documented - Allergic/Immunologic Reports system reviewed and no additional complaints, except as documented [facility] Medical History: Medical History (Last Reviewed 11/26/20 @ 09:46 by Desire Chauhan) Autoimmune thyroiditis Carpal tunnel syndrome on both sides COVID-19 vaccine administered Dizziness Dyslipidemia Elevated cholesterol Hypothyroidism Hypovitaminosis D Microcytic anemia Functional capacity: uses cane/walker Patient : No Family History: Family History (Last Reviewed 12/26/20 @ 10:45 by Marta Joshua) Father Lymphoma Mother No problems noted. Sister In good health Surgical History: Surgical History (Last Updated 12/26/20 @ 10:57 by Marta Joshua) History of esophagogastroduodenoscopy (EGD) Hx of colonoscopy Hx of colonoscopy Total knee replacement status Social History: Social History (Last Updated 12/26/20 @ 10:58 by Marta Joshua) Alcohol History: Alcohol intake: current Alcohol History Details: Alcohol intake frequency: holiday/special occasion Alcohol type: wine Tobacco History: Patient Tobacco Use Status: Never used Tobacco Oncology Screenings - ECOG Performance Status ECOG Performance Status: 1 Home Medications and Allergies Home Medications Medication Instructions Recorded Confirmed Type ascorbate calcium (vitamin C) 500 500 mg PO DAILY 08/14/20 01/07/21 History mg tablet Allergies Allergy/AdvReac Type Severity Reaction Status Date / Time No Known Allergies Allergy Verified 12/26/20 10:45 Exam Vital signs: Vital Signs Temp 97.3 F 01/07/21 13:17 Pulse 68 01/07/21 13:17 Resp 18 01/07/21 13:17 BP 160/86 H 01/07/21 13:23 Pulse Ox 98 01/07/21 13:17 Intake & Output 01/06/21 01/07/21 01/07/21 18:59 06:59 18:59 Other: Weight 85.1 kg Weight in Grams 56083 Weight 85.1 kg Body Mass Index 30.2 - Constitutional Present: no acute distress - Routine HEENT Exam Head: Present: normal inspection Eye: Present: normal appearance ENT: Present: mucous membranes moist. Absent: sinus tenderness - Routine Neck Exam Present: full ROM. Absent: lymphadenopathy - Routine Respiratory Exam Present: CTAB - Routine Cardiovascular Exam Cardiovascular: Present: RRR, S1, S2 - Routine Abdominal Exam Present: soft, nontender - Routine Rectal Exam Patient deferred: digital exam - Routine Extremities Exam Present: normal inspection - Routine Back/Spine/Pelvis Exam Back/Spine: Present: full ROM - Routine Skin Exam Present: intact - Routine Neurological Exam Present: alert, oriented X3 - Detailed Neurological Exam: Coma Scale Eye Opening: Spontaneous (4) - Routine Psychiatric Exam Present: normal affect Data - Labs CBC & Chem 7: 01/07/21 13:30 01/07/21 13:30 Labs: 11/01/20 13:34 Complete Blood Count Auto Diff Routine Comprehensive Met. Panel Routine Ferritin Routine LDH [Lactate Dehydrogenase] Routine SLIDE REVIEW Routine Transglutaminase IgA Routine Vitamin B12 and Folate Routine Laboratory Last Values WBC 5.7 X10*3/uL (4.8-10.8) 11/01/20 13:34 RBC 4.40 X10*6/uL (4.20-5.50) 11/01/20 13:34 Hgb 10.7 g/dl (12.0-16.0) L D 11/01/20 13:34 Hct 36.1 % (37-47) L 11/01/20 13:34 MCV 82.0 fL (80-98) 11/01/20 13:34 MCH 24.3 pg (27.0-33.0) L 11/01/20 13:34 MCHC 29.6 g/dl (31.0-35.0) L 11/01/20 13:34 RDW 29.2 % (11.0-16.0) H 11/01/20 13:34 Plt Count 257 X10*3/uL (160-400) 11/01/20 13:34 MPV 10.3 fL (9.4-12.3) 11/01/20 13:34 Immature Gran % (Auto) 0.3 % (0.0-0.4) 11/01/20 13:34 Neut % (Auto) 73.6 % (45-73) H 11/01/20 13:34 Lymph % (Auto) 12.0 % (20-40) L 11/01/20 13:34 [place] % (Auto) 10.8 % (2-11) 11/01/20 13:34 Eos % (Auto) 2.6 % (0-4) 11/01/20 13:34 Baso % (Auto) 0.7 % (0-2) 11/01/20 13:34 Lymph # (Auto) 0.7 X10*3/uL (1.2-4.9) L 11/01/20 13:34 [place] # (Auto) 0.6 X10*3/uL (0.1-1.2) 11/01/20 13:34 Eos # (Auto) 0.2 X10*3/uL (0.0-0.4) 11/01/20 13:34 Baso # (Auto) 0.0 X10*3/uL (0.0-0.2) 11/01/20 13:34 Abs Immat Gran (auto) 0.02 X10*3/uL (0.00-0.03) 11/01/20 13:34 Absolute Neuts (auto) 4.2 X10*3/uL (2.0-8.3) 11/01/20 13:34 Absolute Nucleated RBC 0.000 X10*3/uL (0.0-0.012) 11/01/20 13:34 Nucleated RBC % (auto) 0.0 /100WBC (0.0-0.2) 11/01/20 13:34 Smear Tech's Comments VERIFIED 11/01/20 13:34 Sodium 140 mmol/L (135-145) 11/01/20 13:34 Potassium 4.4 mmol/L (3.3-5.1) 11/01/20 13:34 Chloride 108 mmol/L (96-108) 11/01/20 13:34 Carbon Dioxide 24 mmol/L (22-29) 11/01/20 13:34 Anion Gap 12 (12-20) 11/01/20 13:34 BUN 18 mg/dL (9-16) H 11/01/20 13:34 Creatinine 0.86 mg/dL (0.5-1.4) 11/01/20 13:34 Estim Creat Clear Calc 59.1 11/01/20 13:34 Estimated GFR > 60 11/01/20 13:34 Random Glucose 81 mg/dL (60-115) 11/01/20 13:34 Calcium 9.2 mg/dL (8.4-10.2) 11/01/20 13:34 Ferritin 50 ng/mL (10-250) 11/01/20 13:34 Total Bilirubin 0.6 mg/dL (0.0-1.0) 11/01/20 13:34 AST 19 U/L (5-31) 11/01/20 13:34 ALT 19 U/L (0-31) 11/01/20 13:34 Alkaline Phosphatase 75 U/L (39-117) 11/01/20 13:34 Lactate Dehydrogenase 232 U/L (122-220) H 11/01/20 13:34 Total Protein 6.9 g/dL (6.5-8.0) 11/01/20 13:34 Albumin 4.3 g/dL (3.5-5.0) 11/01/20 13:34 Vitamin B12 503 pg/mL (200-900) 11/01/20 13:34 Folate 15.1 ng/mL (> or = 4.0) 11/01/20 13:34 Tiss Transglutamin IgA 1 U/mL 11/01/20 13:34 Progress Note: A/P (1) Microcytic anemia Problem details: taking iron Status: Acute Assessment and plan: This is a pleasant 75-year-old lady with recent history of Microcytic Anemia. Her iron studies were consistent with iron deficiency: 41/424/05/05. Hemoglobin 8.6/hematocrit 30.4. DIFFERENTIAL DIAGNOSIS: 1. IRON DEFICIENCY ANEMIA: At her age most likely etiology is occult GI blood loss. Other possibility is iron malabsorption from something like celiac disease. 2. B12 OR FOLATE DEFICIENCY: She could have multifactorial anemia with additional low B12 from malabsorption or pernicious anemia. I proceeded with the further workup. l rechecked her labs to see if the oral iron has started to take effect. Actually her H&H improved up to 10.6 hemoglobin. l decided to continue her on the oral iron. The plan was that if the blood cou nt did not normalize, can arrange for IV iron. She followed up with GI, saw Dr. Mitchell on 12/26. She is feeling very well now. Energy level is up. Her H&H are normal today. Ferritin: 50. All that is good news. PLAN: She will be scheduled for an upper endoscopy in February, to ensure healing of the gastric ulcer. She will continue on oral iron with vitamin-C. She will return in 3 couple of months for a follow-up visit. If she gets more fatigued has other symptoms she will call me. Thank you, CC: Dr. Velásquez. Shabana Morales. - Time Spent With Patient 25 - 35 minutes
[2021-01-07 14:06] LABS: MANUAL DIFF FLAG NO
[2021-01-07 14:11] LABS: Basophils Percent Auto 0.3 % (0-2); Eosinophils Absolute Auto 0.2 X10*3/uL (0.0-0.4); Hematocrit 39.6 % (37-47); Hemoglobin 13.1 g/dl (12.0-16.0); Imm Gran Abs Auto 0.03 X10*3/uL (0.00-0.03); Imm Gran Pct Auto 0.5 % (0.0-0.4); Lymphocytes Absolute Auto 0.9 X10*3/uL (1.2-4.9); Lymphocytes Percent Auto 15.3 % (20-40); Mean Corpuscular HGB Conc 33.1 g/dl (31.0-35.0); Mean Corpuscular Volume 87.8 fL (80-98); Mean Platelet Volume 10.8 fL (9.4-12.3); Monocytes Absolute Auto 0.8 X10*3/uL (0.1-1.2); Monocytes Percent Auto 12.5 % (2-11); Neutrophils Percent Auto 67.4 % (45-73); Platelet Count 208 X10*3/uL (160-400); Red Blood Count 4.51 X10*6/uL (4.20-5.50); Red Cell Distribution Width 22.2 % (11.0-16.0)
[2021-01-07 14:32] LABS: Alanine Aminotransferase 24 U/L (0-31); Albumin Level 4.2 g/dL (3.5-5.0); Alkaline Phosphatase 90 U/L (39-117); Anion Gap 14 (12-20); Aspartate Amino Transferase 24 U/L (5-31); Bilirubin Total 0.8 mg/dL (0.0-1.0); Blood Urea Nitrogen 17 mg/dL (9-16); Calcium 9.4 mg/dL (8.4-10.2); Carbon Dioxide 24 mmol/L (22-29); Chloride 106 mmol/L (96-108); Creatinine Clr Calc Pharmacy 60.9; Estimated Glomerular Filt Rate > 60; Glucose Random 77 mg/dL (60-115); Potassium 4.1 mmol/L (3.3-5.1); Sodium 140 mmol/L (135-145); Total Protein 6.9 g/dL (6.5-8.0)
--- NOTE | 2021-01-07 15:28 | MHC.HEMONC ---
Pt here for Hem follow up with Dr Valencia. Clinical summary updated by nurse. Lab draw by channel account manager-specimen to lab. BP 199/86, repeated 160/86. Dr Valencia into see pt, provider notified of BP 199/86,160/86. Follow up appointment scheduled-Discharged home.
--- NOTE | 2021-04-10 14:00 | P.PNHO_ITS ---
[facility] Clinic Telehealth - Telehealth Location of Provider rendering services: Hem/onc office. Location of Patient: Home. Patient Identification confirmed using: Name, : Yes Telehealth Method: Via Telephone. Patient verbally consented to treatment: Yes. Patient verbally consented to billing insurance company: Yes Patient informed of any privacy concerns related to visit: Yes Medical Summary - Medical Summary Date of Service: 04/10/21 Medical Summary: DIAGNOSIS: IRON DEFICIENCY ANEMIA. CURRENT THERAPY: Oral iron and vitamin-C. Interval History Interval history: Ruthann Ellison is a pleasant 76 year old lady, with whom a tele visit was held. She has been doing very well. She tells me her energy level is improved significantly. She denies any headache, nor dizziness. No chest pain or trouble breathing. She denies cough no sputum. No abdominal pain nausea vomiting heartburn indigestion. Her bowels are regular. No gross blood in the stools. She tells me she had a colonoscopy by Dr. Wesley a few years ago at [facility]. She enjoys a good appetite. She has gained weight. Denies urinary complaints. No joint pains muscle pain. Denies focal weakness. No depression. No rashes nor pruritus. Previous history: She tells me that recently she had felt more fatigued. Than 1 morning she got up too fast. Her head started to spin. She called her primary and went in to see her. From 10/16, Her CBC revealed WBC: 6.9, HGB 8.6, HCT 30.4, MCV 75, PLT 293. Iron studies: 41/424/05/05. She was then started on oral iron 325 mg twice a day. She says she feels some what better. Pt has been seen in GI in the past for JULISSA when she was donating blood. 11/2020 EGD showed a small hiatal hernia 34 to 36 cms and a focal ulcer at GE junction. Same day colonoscopy showed diverticulosis and hemorrhoids. A large adenomatous polyp was removed. Repeat colonoscopy is advised in 3 years. Patient was advised to schedule a follow-up EGD in 02/2021 to confirm esophageal ulcer has healed. Family history: Her parents were healthy. She has a younger sister without any health issues. 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 She is single. Has no children. She smoked briefly for a year in her 20s just on the weekends. She did not inhale. She drinks socially. Wine with dinner. Review of Systems - Constitutional Reports system reviewed and no additional complaints, except as documented - Eyes Reports system reviewed and no additional complaints, except as documented - ENT Reports system reviewed and no additional complaints, except as documented - Cardiovascular Reports system reviewed and no additional complaints, except as documented - Respiratory Reports no additional respiratory complaints - Gastrointestinal Reports system reviewed and no additional complaints, except as documented - Genitourinary Reports no additional female genitourinary complaints - Musculoskeletal Reports system reviewed and no additional complaints, except as documented - Integumentary/Breasts Skin/Breast: Reports no additional skin complaints - Neurologic Reports system reviewed and no additional complaints, except as documented, Denies syncope - Psychiatric Reports system reviewed and no additional complaints, except as documented - Endocrine Reports no additional endocrine complaints - Hematologic/Lymphatic Reports system reviewed and no additional complaints, except as documented - Allergic/Immunologic Reports system reviewed and no additional complaints, except as documented Oncology Screenings - ECOG Performance Status ECOG Performance Status: 0 Home Medications and Allergies Allergies Allergy/AdvReac Type Severity Reaction Status Date / Time No Known Allergies Allergy Verified 03/20/21 10:02 Exam Vital signs: Vital Signs Temp 97.3 F 01/07/21 13:17 Pulse 68 01/07/21 13:17 Resp 18 01/07/21 13:17 BP 160/86 H 01/07/21 13:23 Pulse Ox 98 01/07/21 13:17 Weight 85.1 kg Body Mass Index 30.2 - Constitutional Present: no acute distress - Routine HEENT Exam Head: Present: normal inspection - Routine Neck Exam Present: full ROM. Absent: lymphadenopathy - Routine Respiratory Exam Present: CTAB - Routine Cardiovascular Exam Cardiovascular: Present: RRR, S1, S2 - Routine Abdominal Exam Present: soft, nontender - Routine Rectal Exam Patient deferred: digital exam - Routine Extremities Exam Present: normal inspection - Routine Back/Spine/Pelvis Exam Back/Spine: Present: full ROM - Routine Skin Exam Present: intact - Routine Neurological Exam Present: alert, oriented X3 - Detailed Neurological Exam: Coma Scale Eye Opening: Spontaneous (4) - Routine Psychiatric Exam Present: normal affect Data - Labs CBC & Chem 7: 01/07/21 13:30 01/07/21 13:30 Labs: 11/01/20 13:34 Complete Blood Count Auto Diff Routine Comprehensive Met. Panel Routine Ferritin Routine LDH [Lactate Dehydrogenase] Routine SLIDE REVIEW Routine Transglutaminase IgA Routine Vitamin B12 and Folate Routine Laboratory Last Values WBC 5.7 X10*3/uL (4.8-10.8) 11/01/20 13:34 RBC 4.40 X10*6/uL (4.20-5.50) 11/01/20 13:34 Hgb 10.7 g/dl (12.0-16.0) L D 11/01/20 13:34 Hct 36.1 % (37-47) L 11/01/20 13:34 MCV 82.0 fL (80-98) 11/01/20 13:34 MCH 24.3 pg (27.0-33.0) L 11/01/20 13:34 MCHC 29.6 g/dl (31.0-35.0) L 11/01/20 13:34 RDW 29.2 % (11.0-16.0) H 11/01/20 13:34 Plt Count 257 X10*3/uL (160-400) 11/01/20 13:34 MPV 10.3 fL (9.4-12.3) 11/01/20 13:34 Immature Gran % (Auto) 0.3 % (0.0-0.4) 11/01/20 13:34 Neut % (Auto) 73.6 % (45-73) H 11/01/20 13:34 Lymph % (Auto) 12.0 % (20-40) L 11/01/20 13:34 Winkler % (Auto) 10.8 % (2-11) 11/01/20 13:34 Eos % (Auto) 2.6 % (0-4) 11/01/20 13:34 Baso % (Auto) 0.7 % (0-2) 11/01/20 13:34 Lymph # (Auto) 0.7 X10*3/uL (1.2-4.9) L 11/01/20 13:34 Winkler # (Auto) 0.6 X10*3/uL (0.1-1.2) 11/01/20 13:34 Eos # (Auto) 0.2 X10*3/uL (0.0-0.4) 11/01/20 13:34 Baso # (Auto) 0.0 X10*3/uL (0.0-0.2) 11/01/20 13:34 Abs Immat Gran (auto) 0.02 X10*3/uL (0.00-0.03) 11/01/20 13:34 Absolute Neuts (auto) 4.2 X10*3/uL (2.0-8.3) 11/01/20 13:34 Absolute Nucleated RBC 0.000 X10*3/uL (0.0-0.012) 11/01/20 13:34 Nucleated RBC % (auto) 0.0 /100WBC (0.0-0.2) 11/01/20 13:34 Smear Tech's Comments VERIFIED 11/01/20 13:34 Sodium 140 mmol/L (135-145) 11/01/20 13:34 Potassium 4.4 mmol/L (3.3-5.1) 11/01/20 13:34 Chloride 108 mmol/L (96-108) 11/01/20 13:34 Carbon Dioxide 24 mmol/L (22-29) 11/01/20 13:34 Anion Gap 12 (12-20) 11/01/20 13:34 BUN 18 mg/dL (9-16) H 11/01/20 13:34 Creatinine 0.86 mg/dL (0.5-1.4) 11/01/20 13:34 Estim Creat Clear Calc 59.1 11/01/20 13:34 Estimated GFR > 60 11/01/20 13:34 Random Glucose 81 mg/dL (60-115) 11/01/20 13:34 Calcium 9.2 mg/dL (8.4-10.2) 11/01/20 13:34 Ferritin 50 ng/mL (10-250) 11/01/20 13:34 Total Bilirubin 0.6 mg/dL (0.0-1.0) 11/01/20 13:34 AST 19 U/L (5-31) 11/01/20 13:34 ALT 19 U/L (0-31) 11/01/20 13:34 Alkaline Phosphatase 75 U/L (39-117) 11/01/20 13:34 Lactate Dehydrogenase 232 U/L (122-220) H 11/01/20 13:34 Total Protein 6.9 g/dL (6.5-8.0) 11/01/20 13:34 Albumin 4.3 g/dL (3.5-5.0) 11/01/20 13:34 Vitamin B12 503 pg/mL (200-900) 11/01/20 13:34 Folate 15.1 ng/mL (> or = 4.0) 11/01/20 13:34 Tiss Transglutamin IgA 1 U/mL 11/01/20 13:34 Assessment and Plan Patient Active problem list reviewed?: Yes (1) Microcytic anemia Problem details: taking iron Status: Acute Assessment and plan: This is a pleasant 76 year-old lady with recent history of Microcytic Anemia. Her iron studies were consistent with iron deficiency: 41/424/05/05. Hemoglobin 8.6/hematocrit 30.4. DIFFERENTIAL DIAGNOSIS: 1. IRON DEFICIENCY ANEMIA: At her age most likely etiology is occult GI blood loss. Other possibility is iron malabsorption from something like celiac disease. 2. B12 OR FOLATE DEFICIENCY: She could have multifactorial anemia with additional low B12 from malabsorption or pernicious anemia. I proceeded with the further workup. l rechecked her labs to see if the oral iron has started to take effect. Actually her H&H improved up to 10.6 hemoglobin. l decided to continue her on the oral iron. The plan was that if the blood count did not normalize, can arrange for IV iron. She followed up with GI, saw Dr. Mitchell on 12/26. She is feeling very well now. Energy level is up. Recent H&H were normal. Ferritin: 50. All that is good news. PLAN: She will be scheduled for an upper endoscopy in February, to ensure healing of the gastric ulcer. She will continue on oral iron with vitamin-C. She will return in 3 couple of months for a follow-up visit. If she gets more fatigued has other symptoms she will call me. 25 minutes were spent coordinating her care including the tele visit, review of labs, review of imaging and counseling the patient. Thank you, CC: Dr. Velásquez. Shabana Morales. - Time Spent With Patient Time Spent with Patient (in minutes): 25
--- NOTE | 2021-04-10 16:25 | MHC.HEMONCMA ---
pt had televisit and will schedule f/u visit. states she is doing well.
== END | disposition home or self-care (01) ==
LOC: HO.ONC 11-01 12:47
PROVIDERS: PCP Internal Medicine; Referring Provider Internal Medicine; Visit Provider Internal Medicine Medical Oncology
DX: D50.9 Iron deficiency anemia, unspecified (principal); Z79.899 Other long term (current) drug therapy
CPT/HCPCS: 36415; 80053; 82607; 82728; 82746; 83516; 83615; 85025; 99204; 99214; Q3014

== ENCOUNTER 2024-05-11 12:38 | Outpatient (AMB) | payer MEDICARE, SELFPAY ==
--- NOTE | 2024-05-11 12:45 | A.OFFVIS_ITS ---
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 Maker Loom Control Required: No Accompanied by: niece Allergies No Known Allergies Allergy (Verified 05/11/24 13:00) Medication List - Last Reconciled 05/11/24 by Gemma Taylor MD ascorbic acid (vitamin C) 500 mg PO DAILY 90 days atorvastatin 10 mg PO DAILY calcium carbonate 600 mg PO BID 90 days cholecalciferol (vitamin D3) 50 mcg PO DAILY 90 days ferrous sulfate 325 mg PO Q OTHER DAY 90 days levothyroxine 75 mcg PO DAILY 90 days meclizine 25 mg PO DAILY PRN 30 days omeprazole 20 mg PO DAILY 60 days HPI HPI Comments History of Present Illness Details This is an 79-year-old female that comes accompanied by healthcare proxy Kristina which is her niece for her Medicare wellness exam. Ppp handed to patient. [place] of care was reviewed. Mammogram done 2023 was normal. [place] noscopy done 2020 showing tubular adenoma and she follows with Gastroenterology. DEXA scan done 2023 shows osteopenia and she is aware has to take calcium with vitamin-D. [facility] Medical History Esophageal ulcer without bleeding COVID-19 vaccine administered Elevated cholesterol Carpal tunnel syndrome on both sides Microcytic anemia Dizziness Hypovitaminosis D Dyslipidemia Autoimmune thyroiditis Hypothyroidism Surgical History History of esophagogastroduodenoscopy (EGD) Hx of colonoscopy Hx of colonoscopy Total knee replacement status Family History Father Lymphoma Mother No problems noted. 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 Cognitive needs: No Hearing needs: No Vision needs: No Questionnaire Medicare Wellness Checkup What is your age?: 80 or older What gender do you identify with?: female During the past 4 weeks, how much have you been bothered by emotional problems such as feeling anxious, depressed, irritable, sad or downhearted, and blue?: not at all During the past 4 weeks, has your physical & emotional health limited your social activities with family, friends, neighbors, or groups?: not at all During the past 4 weeks, how much bodily pain have you generally had?: no pain During the past 4 weeks, was someone available to help you if you needed & wanted help?: yes, as much as I wanted During the past 4 weeks, what was the hardest physical activity you could do for at least 2 minutes?: light Can you get to places out of walking distance without help? (For eg., can you travel alone on buses, taxis or drive your car?): Yes Can you go shopping for groceries or clothes without someone's help?: Yes Can you prepare your own meals?: Yes Can you do your housework without help?: Yes Because of any health problems, do you need the help of another person with your personal care needs such as eating, bathing, dressing or getting around the house?: No Can you handle your own money without help?: Yes During the past 4 weeks, how would you rate your health in general?: very good During the past 4 weeks how have things been going for you?: very well; could hardly better Are you having difficulties driving your car?: no Do you always fasten your seat belt when you are in a car?: yes, usually During past 4 weeks, have you been bothered by the following: never: Sexual problems?, Trouble eating well?, Teeth or denture problems?, Problems using the telephone? and Tiredness or fatigue? and seldom: Falling or dizzy when standing up Have you fallen 2 or more times in the past year?: No Are you afraid of falling?: No Are you a smoker?: no During the past 4 weeks, how many drinks of wine, beer, or other alcoholic beverages did you have?: 1 drink or less per week Do you exercise for about 20 minutes 3 or more times a week?: no, I usually do not exercise this much Have you been given information to help with the following?: no: Hazards in your house that might hurt you? and no: Keeping track of your medications? How often do you have trouble taking medicines the way you have been told to take them?: sometimes I take medicine as prescribed How confident are you that you can control & manage most of your health problems?: somewhat confident What is your race?: White Mini Mental State Exam (MMSE) Orientation What is the (year) (season) (date) (day) (month)?: year, season, date, day and month Where are we (state) (county) (town or city) (hospital) (floor)?: state, county, town or city, hospital/clinic and floor Registration Name of 3 unrelated objects clearly and slowly, then ask patient to repeat all 3 of them. (1st repeat determines score. Make sure they can repeat all three): object 1, object 2 and object 3 Attention & Calculation (CHOOSE ONE) Spell WORLD backwards (DLROW): 5 letters Recall Ask patient to repeat the 3 items from question #3.: object 1, object 2 and obj ect 3 Language Show patient a wristwatch & ask what it is. Repeat for pencil.: watch and pencil Ask the patient to repeat the phrase 'No ifs, ands, or buts' after you.: correct Ask the patient to 'take a piece of paper with their right hand' 'fold paper in half' 'place paper on floor': take paper in right hand, fold paper in half and place paper on floor Print the sentence 'CLOSE YOUR EYES' on a piece. If patient actually closes eyes then score.: followed written direction Ask patient to copy figure of intersecting pentagons exactly. Score if all 10 angles & 2 intersects are included.: all 10 angles present & 2 are intersected Score Score: 29 Activity of Daily Living Bathing - sponge bath, tub bath or shower: receives no assistance (gets in/out b y self, if usual bathing means Dressing - getting clothes from closets & drawers, including inner/outer garments & fasteners.: gets clothes & gets completely dressed without help Transfer: moves in & out of bed and chair without help (may use support object) Continence: controls urination/bowel movements completely by self Feeding: feeds self without help Total Score: 0 Information obtained from: patient Using telephone: independent Traveling: independent Shopping: independent Preparing meals: independent Housework: needs assistance Taking medicine: independent Managing money: needs assistance PHQ-9 Over the last 2 weeks, how often have you been bothered by any of the following problems? 1. Little interest or pleasure in doing things: not at all 2. Feeling down, depressed, or hopeless: not at all 3. Trouble falling or staying asleep, or sleeping too much: not at all 4. Feeling tired or having little energy: several days 5. Poor appetite or overeating: not at all 6. Feeling bad about yourself - or that you are a failure or have let yourself or your family down: not at all 7. Trouble concentrating on things, such as reading the newspaper or watching television: not at all 8. Moving or speaking so slowly that other people could have noticed. Or the opposite - being so fidgety or restless that you have been moving around a lot more than usual: not at all 9. Thoughts that you would be better off or of hurting yourself in some way: not at all Total score: 1 Depression Screening Interpretation: Negative Depression Screening Done: Yes 57648 - PHQ-9 Billing: Yes Source: Developed by Drs. Ricardo Baker, Sally García, Clarence Samson and colleagues, with an educational melissa from [employer]. Fall Risk Assessment Fall Risk Assessment Fall risk assessment: No Falls in past year Thrive Questionnaire Date Thrive assessed: 10/11/23 AUDIT C Alcohol Use Questionnaire (AUDIT-C) 1. How often do you have a drink containing alcohol?: Never Total Score: 0 Score Reviewed/Action Taken: No JERRELL-7 AMB Questionnaire JERRELL-7 Date JERRELL - 7 assessed: 05/11/24 Feeling nervous, anxious, or on edge: 0 = Not at all Not being able to stop or control worryin = Not at all Worrying too much about different things: 0 = Not at all Trouble relaxin = Not at all Being so restless that it is hard to sit still: 0 = Not at all Becoming easily annoyed or irritable: 0 = Not at all Feeling afraid as if something awful might happen: 0 = Not at all Total JERRELL-7 score (0-4 normal; 5-9 mild; 10-14 moderate; 15-21 severe): 0 Source: Developed by Drs. Ricardo Baker, Sally García, Clarence Samson and colleagues, with an educational melissa from [employer]. JERRELL-7 Assessment Billing JERRELL-7 Assessment Tool: JERRELL-7 Assessment 04533 Review of Systems Const All systems reviewed & are unremarkable except as noted in HPI and below Card Denies chest pain at rest, Denies chest pain with activity, Denies edema, Denies irregular heart rhythm, Denies claudication, Denies dyspnea, Denies dyspnea on exertion, Denies orthopnea, Denies paroxysmal nocturnal dyspnea and Denies slow heart rate Resp Denies cough, Denies dyspnea and Denies dyspnea on exertion GI Denies abdominal pain, Denies change in bowel habits, Denies excessive flatus, Denies nausea and Denies vomiting Denies urinary incontinence, Denies urinary hesitancy and Denies urinary urgency Musc Denies atrophy, Denies deformity and Denies limited range of motion Skin/Breast Denies bleeding lesions, Denies changing lesions and Denies rash Neuro Denies confusion Psych Denies confusion Physical Exam Vital Signs: Last Vital Signs BP 136/82 05/11/24 12:46 BMI result Body Mass Index 30.7 Const General: No confusion Orientation/consciousness: patient oriented x3 and No confusion Resp Effort & Inspection: normal respiratory effort Auscultation: clear to auscultation bilaterally Cardio Jugular venous distension: no JVD Rate: regular rate Rhythm: regular rhythm Heart sounds: S1 normal heart sound present and S2 normal heart sound present Neuro General: patient oriented x3, no focal motor deficits and No confusion Romberg Test: Negative Extrem General: Yes full ROM Immunizations pneumoc 20-erick conj-dip cr(PF) 0.5 mL IM syringe Performing Provider: Gemma Taylor MD Performing Location[facility] [place] [facility] Administered by: SUSHMA Hicks on 05/11/24 13:38 Dose Route Admin Location Dispensed Lot Number Expiration Date [facility] Pediatric Assistant 0.5 mL IM Left Deltoid 0.5 mL [id number] 06/18/25 3872-4370-11 pSividaETH/PFIZER VIS Given Date VIS Provided VIS Publication Date 05/11/24 Single Vaccine 21 Eligibility Eligibility Date Funding Source Not VFC Eligible 05/11/24 Private Assessment & Plan Assessment & Plan (1) Encounter for Medicare annual wellness exam: Code(s): Z00.00 - Encounter for general adult medical examination without abnormal findings Plan: Repeat in a year. Orders: Orders Pneumococcal 20 Immunization Today Z23 - Encounter for immunization Vitamin D 25-OH Total Today E55.9 - Vitamin D deficiency, unspecified Complete Blood Count Auto Diff Today D64.9 - Anemia, unspecified IRON PROFILE Today D64.9 - Anemia, unspecified Comprehensive [place]. Panel Fast Today R42 - Dizziness and giddiness Lipid Panel Today E78.5 - Hyperlipidemia, unspecified Quality Reporting (2019) Fall Risk Screening ([facility] 139) Fall risk assessment: No Falls in past year Depression/Bipolar (159/160/161/177) PHQ-9: Total score: 1 Coding Level of Care Code Medicare Subsequent (G0439) Diagnoses Encounter for Medicare annual wellness exam Z00.00 CPT Codes Advance Care Planning - Time spent: 1-15 minutes, on File ([id number]) Additional Codes JERRELL-7 Assessment Billing - JERRELL-7 Assessment Tool: JERRELL-7 Assessment [id number] ([id number]) Time Spent (min) 40 Advance Care Planning Advance Care Planning discussion: Completed/Scanned Date of discussion: 05/11/24 Who was present: Kristina (healthcare proxy), patient and me Forms completed: AJAY Time spent: 1-15 minutes, on File Actual minutes spent: 5
[2024-05-11 12:46] VITALS: BP 136/82; BMI 30.7
== END 2024-05-11 13:38 | disposition home or self-care (01) ==
PROVIDERS: PCP Internal Medicine; Visit Provider Internal Medicine
DX: Z00.00 Encounter for general adult medical examination without abnormal findings (principal); Z23 Encounter for immunization

== ENCOUNTER → 2024-05-11 12:38 | Outpatient (BNVA) | payer MEDICARE, SELFPAY | PROVIDERS: PCP Internal Medicine; Visit Provider Internal Medicine | DX: Z00.00 Encounter for general adult medical examination without abnormal findings (principal); Z23 Encounter for immunization; E55.9 Vitamin D deficiency, unspecified; D64.9 Anemia, unspecified; R42 Dizziness and giddiness; E78.5 Hyperlipidemia, unspecified | CPT/HCPCS: 90471; 90677; 96127 ==

== ENCOUNTER 2024-10-03 10:26 | Outpatient (REF) | payer MEDICARE, SELFPAY ==
[2024-10-03 11:02] LABS: MANUAL DIFF FLAG NO
[2024-10-03 11:52] LABS: Basophils Percent Auto 0.5 % (0-2); Eosinophils Absolute Auto 0.2 X10*3/uL (0.0-0.4); Eosinophils Percent Auto 2.5 % (0-4); Hematocrit 31.7 % (37.0-47.0); Hemoglobin 9.5 g/dl (12.0-16.0); Imm Gran Abs Auto 0.01 X10*3/uL (0.00-0.03); Imm Gran Pct Auto 0.2 % (0.0-0.4); Lymphocytes Absolute Auto 0.8 X10*3/uL (1.2-4.9); Lymphocytes Percent Auto 12.9 % (20-40); Mean Corpuscular Hemoglobin 24.7 pg (27.0-33.0); Mean Corpuscular Volume 82.3 fL (80.0-98.0); Mean Platelet Volume 10.1 fL (9.4-12.3); Monocytes Absolute Auto 0.8 X10*3/uL (0.1-1.2); Monocytes Percent Auto 13.4 % (2-11); Neutrophils Absolute Auto 4.2 x10*3/uL (2.0-8.3); Neutrophils Percent Auto 70.5 % (45-73); Platelet Count 298 X10*3/uL (160-400); Red Blood Count 3.85 X10*6/uL (4.20-5.50); Red Cell Distribution Width 18.9 % (11.0-16.0); White Blood Count 5.9 X10*3/uL (4.8-10.8)
[2024-10-03 12:07] LABS: Appearance Urine Clear; Color Urine Yellow; Glucose Urine UA Negative (Negative); Leukocyte Esterase Urine Trace (Negative); Nitrite Urine Negative (Negative); Specific Gravity - Urine <= 1.005 (1.005-1.025); UMIC TRIGGER UACC YES; Urine Blood Negative (Negative); Urine Ketones Negative (Negative); Urine Protein Negative (Neg-Trace)
[2024-10-03 12:13] LABS: Bacteria Urine None Seen (None Seen); Hyaline Casts Urine 0-2 /LPF (0-2); RBC Urine 0-2 /HPF (0-2); Squamous Epithelial Cell Urine 0-2 /HPF (0-2); WBC Urine 0-5 /HPF (0-5)
[2024-10-03 12:40] LABS: Anion Gap 14 (12-20)
[2024-10-03 12:45] LABS: Alanine Aminotransferase 24 U/L (0-31); Albumin Level 4.3 g/dL (3.5-5.0); Aspartate Amino Transferase 42 U/L (5-31); Bilirubin Total 0.6 mg/dL (0.0-1.0); Blood Urea Nitrogen 18 mg/dL (9-16); Calcium 9.5 mg/dL (8.4-10.2); Carbon Dioxide 20 mmol/L (22-29); Chloride 106 mmol/L (96-108); Cholesterol 137 mg/dL (<200); Estimated Glomerular Filt Rate 58; Glucose Fasting 77 mg/dL (60-99); HDL Cholesterol 61 mg/dL (>40); Iron 207 mcg/dL (30-160); LDL Cholesterol Calculated 65 mg/dL (<100); Percent Iron Saturation 52 % (15-50); Potassium 4.1 mmol/L (3.3-5.1); Sodium 136 mmol/L (135-145); Total Iron Binding Capacity 396 mcg/dL (228-428); Triglycerides 58 mg/dL (<150); Unsaturated Iron Binding 189 ug/dL
[2024-10-03 13:09] LABS: Free T4 (Free Thyroxine) 1.25 ng/dL (0.71-1.85); Vitamin D 25-OH Total 31.6 ng/mL (>30)
[2024-10-03 13:10] LABS: Folate 8.8 ng/mL (> or = 4.0); Vitamin B12 666 pg/mL (200-900)
[2024-10-03 13:11] LABS: Alkaline Phosphatase 78 U/L (39-117); Ferritin 29 ng/mL (10-250); Thyroid Stimulating Hormone 2.56 uIU/mL (0.32-4.0)
== END 2024-10-03 10:27 | disposition home or self-care (01) ==
LOC: HO.LAB 10:26
PROVIDERS: Internal Medicine Gastroenterology; PCP Internal Medicine; Visit Provider Internal Medicine
DX: D50.9 Iron deficiency anemia, unspecified (principal); E78.5 Hyperlipidemia, unspecified; E06.3 Autoimmune thyroiditis; D64.9 Anemia, unspecified; E55.9 Vitamin D deficiency, unspecified; E53.8 Deficiency of other specified B group vitamins
CPT/HCPCS: 36415; 80053; 80061; 81001; 81003; 82306; 82607; 82728; 82746; 83540; 84439; 84443; 85025

== ENCOUNTER 2024-10-15 10:00 | Outpatient (REF) | payer MEDICARE, SELFPAY ==
--- NOTE | ~2024-10-15 | MR_ITS ---
EXAMINATION: MR BRAIN WITHOUT CONTRAST CLINICAL INFORMATION: Disorientation, unspecified. COMPARISON: None available. TECHNIQUE: MRI of the brain was obtained using routine sequences without contrast. FINDINGS: No restricted diffusion. No acute intracranial hemorrhage, mass effect, midline shift, hydrocephalus or herniation. 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 There is prominence of the extra-axial CSF spaces cerebral sulci and ventricles. Posterior cranial fossa contents demonstrated no signal abnormality. Probable prominent Virchow-Giancarlo spaces in the mid brain. Sellar/suprasellar region demonstrated no signal abnormality or masses. Craniocervical junction is intact and normal. Flow-void signal within the main vessels is normal. MR/MR head/brain wo con IMPRESSION: No acute brain abnormality. Small vessel occlusive disease. Global cerebral atrophy. Electronically signed by: Natanael Pablo MD 10/17/2024 11:19 AM EDT
== END 2024-10-15 10:01 | disposition home or self-care (01) ==
LOC: HO.MRI 10:00
PROVIDERS: PCP Internal Medicine; Visit Provider Internal Medicine
DX: R41.0 Disorientation, unspecified (principal)
CPT/HCPCS: 70551

== ENCOUNTER → 2024-10-15 10:17 | Outpatient (BNV) | payer MEDICARE, SELFPAY | PROVIDERS: PCP Internal Medicine; Visit Provider Radiology Diagnostic Radiology | DX: G31.9 Degenerative disease of nervous system, unspecified (principal); R41.0 Disorientation, unspecified | CPT/HCPCS: 70551 ==

== ENCOUNTER → 2024-11-03 14:12 | Outpatient (BNV) | payer MEDICARE, SELFPAY | PROVIDERS: PCP Internal Medicine; Referring Provider Internal Medicine; Visit Provider Internal Medicine | DX: D64.9 Anemia, unspecified (principal) | CPT/HCPCS: 99203 ==

== ENCOUNTER 2024-11-09 10:07 | Outpatient (AMB) | payer MEDICARE, SELFPAY ==
--- NOTE | 2024-11-09 10:24 | A.OFFVIS_ITS ---
Vital Signs 11/09/24 11:02 Height 5 ft 5 in Weight 193 lb BMI 32.1 BP 126/80 Blood Pressure Location Lt brachial Position Sitting Pulse 67 Pulse Oximetry (%) 97 Oxygen Delivery Method Room Air Intake Visit Reasons: gi bleed Intake Note: Patient follow up for Esophageal ulcer and GI bleeding. Patient denies any GI issues for today. 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 TODAY'S VISIT: Patient denies any GI issues for today. Pt is accompanied by her niece and healthcare proxy, Kristina I am doing better Diagnosed with anemia Taking iron pills more consistently over the past 4-6 weeks. Denies abd pain, diarrhea or constipation. Complains of feeling unsteady on her feet. Has been less active since she moved to an apartment. Shared a house with her sister who . PAST VISITS: Denies heartburn or dysphagia Taking iron pills every other day. Denies recent change in bowel habits, constipation, diarrhea, black stools or rectal bleeding. Concerned about wt gain. She is interested in seeing Wt Management - took a class once. Had to go to urgent care for injury to the left thumb while cutting vegetables. Has to take her sister to an appt in [place] at 11:30 am EGD and biopsy results were reviewed with the patient Denies any problems after the colonoscopy. Admits to wt gain Has not donated blood for the past few yrs Pt was donating blood every few months in the past and has not donated in the past several months. Patient denies symptoms of abdominal pain, heartburn, dysphagia, nausea, vomiting, change in appetite. Admits to weight gain and would like to loose it. Denies recent change in bowel habits, constipation, diarrhea, black stools or rectal bleeding. Stools can be intermittently dark - attributes to diet. Patient denies major cardiac or pulmonary problems, loud snoring or sleep apnea Denies problems with anesthesia in the past. Denies being on chronic anticoagulation.? Takes Advil prn. 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 Never and has no children. Patient denies known family history of colon polyps, colon cancer or other GI malignancies. Dad had PAST GI HISTORY BY REVIEW OF MEDICAL RECORDS: 11/01/20 Pt was seen by Dr Valencia (1) Microcytic anemiaStatus: Acute This is a pleasant 75-year-old lady with recent history of microcytic anemia. ?Her iron studies are consistent with iron deficiency:? 41/424/05/05. ?Hemoglobin 8.6/hematocrit 30.4. ? DIFFERENTIAL DIAGNOSIS: 1. IRON DEFICIENCY ANEMIA:? ? At her age most likely etiology is occult GI blood loss. ? ? Other possibility is iron malabsorption from something like celiac disease. 2. B12 OR FOLATE DEFICIENCY:? ? She could have multifactorial anemia with additional low B12 from malabsorption or pernicious anemia. PLAN: I will proceed with the further workup. Will recheck her labs to see if the oral iron has started to take effect. Actually her H&H has improved up to 10.6 hemoglobin today. Will continue her on the oral iron for now.? If the blood count does not normalize, can arrange for IV iron. Will also request further GI evaluation. I have requested records from [place] about her previous colonoscopy there by Dr. Wesley. She will return in a couple of months for a follow-up visit ENDOSCOPIC STUDIES: 03/04/21 EGD SHOWED: Esophagus:?GE junction at 34 cms, small hiatal hernia 34 to 36 cms.? Focal ulcer at GE junction seen on last EGD appears to have healed. Stomach:?Mild gastric erythema. Biopsies were obtained. Grade 2 flap valve on retroflexed examination of the cardia. 11/2020 EGD AND COLONOSCOPY SHOWED:ESOPHAGUS:? Small hiatal hernia 34 to 36 cms.? Focal ulcer at GE junction.? 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 STOMACH:? Gastritis DUODENUM:? Normal - biopsied to check for celiac sprue Colonoscopy Findings:? One large polyp removed Moderate diverticulosis seen in the sigmoid colon Plan:? Await pathology results Patient has an appointment on 12/26/20 in the GI Clinic with Latesha Mitcehll M.D.. Repeat Colonoscopy interval based on path results - in 3 years if polyps are adenomatous and due to fair prep. Above findings were reviewed with the patient and colon polyps and GERD handouts were given in the discharge area BIOPSIES SHOWED: A.? Small bowel, biopsy:? Small intestinal mucosa within normal limits. B.? Stomach, antrum, biopsy:? Antral-type mucosa with mild chronic inactive inflammation; no Helicobacter organisms seen. C.? Esophagus, distal, biopsy: - Cardiac-type mucosa with moderate chronic active inflammation; no intestinal metaplasia seen. - Squamous mucosa within normal limits.D.? Colon, ascending, polypectomy:? Fragments of tubular adenoma; no high-grade dysplasia or carcinoma seen. [facility] Medical History Esophageal ulcer without bleeding COVID-19 vaccine administered Elevated cholesterol Carpal tunnel syndrome on both sides Microcytic anemia Dizziness Hypovitaminosis D Dyslipidemia Autoimmune thyroiditis Hypothyroidism Surgical History History of esophagogastroduodenoscopy (EGD) Hx of colonoscopy Hx of colonoscopy Total knee replacement status Family History Father Lymphoma Mother No problems noted. 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 Cognitive needs: No Hearing needs: No Vision needs: No Review of Systems Const All systems reviewed & are unremarkable except as noted in HPI and below Physical Exam Vital Signs: Last Vital Signs Pulse 67 11/09/24 11:02 BP 126/80 11/09/24 11:02 Pulse Ox 97 11/09/24 11:02 Oxygen Delivery Method Room Air 11/09/24 11:02 BMI result Body Mass Index 32.1 Const General: no acute distress Nutritional Appearance: obese Orientation/consciousness: patient oriented x3 HEENT Head: Yes normal to inspection Ears: hearing grossly normal bilaterally Eyes Sclerae: sclerae normal Pupils: Equal, round and reactive pupils present Neck Neck: Yes normal visual inspection Chest Chest palpation & inspection: normal inspection of the chest Resp Effort & Inspection: normal respiratory effort Auscultation: clear to auscultation bilaterally Cardio Palpation: normal PMI Rate: regular rate Rhythm: regular rhythm Heart sounds: S1 normal heart sound present, S2 normal heart sound present and no murmurs GI Palpation (GI): Soft to palpation, nontender and No hepatosplenomegaly present Auscultation: normal bowel sounds Rectal Exam - Female: deferred Skin General skin exam: no rashes or lesions noted Neuro General: patient oriented x3, gait normal and moves all extremities Cranial nerves: Yes Equal, round and reactive pupils present Psych Appearance: grossly normal Mental Status: mental status grossly normal Assessment & Plan Assessment & Plan (1) History of colon polyps: Comment: 11/2020 colonoscopy showed diverticulosis and hemorrhoids. A 2 cms adenomatous polyp was removed from the ascending colon. Repeat colonoscopy is advised in 3 years (due 11/2023) Code(s): Z86.010 - Personal history of colon polyps Category: Medical (2) GERD (gastroesophageal reflux disease): Code(s): K21.9 - Gastro-esophageal reflux disease without esophagitis Category: Medical (3) Anemia: Code(s): D64.9 - Anemia, unspecified Category: Medical Plan 78 YF with autoimmune thyroiditis referred to GI for iron def anemia.? Pt denies any GI symptoms. Pt has been seen in GI in the past for JULISSA when she was donating blood. 11/2020 EGD showed a small hiatal hernia 34 to 36 cms and a focal ulcer at GE junction.? Same day colonoscopy showed diverticulosis and hemorrhoids.? A large (2 cms) adenomatous polyp was removed from the ascending colon. Repeat colonoscopy is advised in 3 years Follow-up EGD in 02/2021 showed focal ulcer at GE junction seen on past EGD had healed. Repeat EGD can be scheduled in 11/2023 with colonoscopy to fu on GERD and esophageal ulcers. Patient advised continue taking oral iron.? 04/22/23 Continue iron every other day Repeat labs 01/27/24 Pt advised to schedule an upper endoscopy (FU of esophageal ulcer) and a colonoscopy (surveillance for colon polyps) EGD and Colon scheduled on 10/20/24 and were cancelled by the patient. Will discontinue surveillance colonoscopies due to advanced age with dementia and pt is unable to prep for the procedure On 11/06/24 @ 16:02 Latesha Mitchell Wrote To Latesha Mitchell I received the following message from patient's niece: On 11/05/24 @ 20:09 Ruthann Ellison (Regarding Self / Same As Patient) Wrote To Latesha Mitchell Hello, I am Ruthann's niece, Kristina. I will be taking her to her visit with you on . I wanted to let you know that a colonoscopy is not feasible for her. She lives alone and is having a lot of memory issues: she won?t remember to fast. She didn?t remember to fast for her recent blood work even though I reminded her several times. Thanks. On 09/25/24 @ 09:46 Franklin Butler Wrote To Latesha Mitchell I was able to re book patient for an office follow up visit. On 09/25/24 @ 07:48 Latesha Mitchell Wrote To Franklin Butler Please keep FU appt - pt was last seen in 01/2024 Thanks On 09/21/24 @ 12:18 Franklin Butler Wrote To Latesha Mitchell (2) Patient called today asking to cancel her procedure scheduled for 10/20/24 and post op. Pt states she has many appointments. Dr. Mitchell please let me know if you still want to see patient in the meantime. 11/09/24 Taking iron pills more consistently over the past 4-6 weeks. Denies abd pain, diarrhea or constipation. FU in 3 months - scheduled 01/18/25 Orders: Orders Complete Blood Count no Diff 11/09/24 D64.9 - Anemia, unspecified Ferritin 11/09/24 D64.9 - Anemia, unspecified Coding Level of Care Code Est Pt Level 4 (12083) Diagnoses History of colon polyps Z86.010 GERD (gastroesophageal reflux disease) K21.9 Anemia D64.9 Time Spent (min) 22
[2024-11-09 11:02] VITALS: BP 126/80; PULSE 67; O2SAT 97; BMI 32.1
== END 2024-11-09 11:38 | disposition home or self-care (01) ==
PROVIDERS: PCP Internal Medicine; Visit Provider Internal Medicine Gastroenterology
DX: Z86.0100 Personal history of colon polyps, unspecified (principal); K21.9 Gastro-esophageal reflux disease without esophagitis; D64.9 Anemia, unspecified
CPT/HCPCS: 99214

== ENCOUNTER → 2024-11-09 10:07 | Outpatient (BNVA) | payer MEDICARE, SELFPAY | PROVIDERS: PCP Internal Medicine; Visit Provider Internal Medicine Gastroenterology | DX: K21.9 Gastro-esophageal reflux disease without esophagitis (principal); D64.9 Anemia, unspecified; Z86.0100 Personal history of colon polyps, unspecified | CPT/HCPCS: 99212 ==

== ENCOUNTER 2024-12-19 10:52 | Outpatient (REF) | payer MEDICARE, SELFPAY ==
[2024-12-19 12:04] LABS: Hematocrit 39.4 % (37.0-47.0); Hemoglobin 12.7 g/dl (12.0-16.0); Mean Corpuscular HGB Conc 32.2 g/dl (31.0-35.0); Mean Corpuscular Hemoglobin 27.7 pg (27.0-33.0); Mean Platelet Volume 10.6 fL (9.4-12.3); Platelet Count 216 X10*3/uL (160-400); Red Blood Count 4.58 X10*6/uL (4.20-5.50); Red Cell Distribution Width 21.4 % (11.0-16.0); White Blood Count 7.9 X10*3/uL (4.8-10.8)
--- OUTSIDE RECORDS SUMMARY | 2024-12-19 12:30 | XMS_ITS | Patient Health Record ---
Author Organization [facility] [place] Address [address] [place] [address] Care Team Providers Care Upsetter Setter Up Name Role Phone Cassia Lloyd MD Primary Care Provider Carmen Leiva Unavailable [phone] Reason For Referral No Information Medications Medication SIG (Take, Route, Frequency, Duration) Notes Start Date End Date Status Vitamin E 100 UNIT Orally N ot-Taking Levothyroxine Sodium 100 MCG 1 tablet on an empty stomach in the morning Orally Once a day Active Vitamin D Active iron 1 tab Oral Not-Takin g Social History Tobacco use other than smoking: Question Answer Notes Are you an other tobacco user? No Problems Problem Type SNOMED Code ICD Code Onset Dates Problem Status W/U Status Risk Notes Problem Pain in limb (23580143) Pain in Limb (729.5) Active confirmed Problem Bursitis (27678477) Bursitis (727.3) Active confirmed Problem Hallux valgus (828999819) Hallux Valgus (735.0) Active confirmed Problem Hammer toe (031434192) Hammer toe (735.4) Active confirmed Problem Metatarsalgia (92650694) Metatarsalgia (726.70) Active confirmed Plan Of Treatment No Information Insurance Providers Payer Name Payer Address Payer Phone Subscriber Number Group Number Insured Name Patient Relationship to Insured Coverage Start Date Coverage End Date Medicare National [employer] [address] [place] [address] [id number] Ruthann Ellison Self - patient is the insured Medical (General) History Medical History History ICD Code Thyroid disorder Joint implants/screws Measles Surgical History Surgery Date(Month/Year) knee replacement 2006, 2007
[2024-12-19 12:57] LABS: Ferritin 41 ng/mL (10-250)
== END 2024-12-19 10:53 | disposition home or self-care (01) ==
LOC: HO.LAB 10:52
PROVIDERS: PCP Internal Medicine; Visit Provider Internal Medicine Gastroenterology
DX: D64.9 Anemia, unspecified (principal)
CPT/HCPCS: 36415; 82728; 85027

== ENCOUNTER 2024-12-28 16:44 | Outpatient (AMB) | payer MEDICARE, SELFPAY ==
--- NOTE | 2024-12-28 16:47 | MHC.PC.OV ---
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 Required: No Accompanied by: niece Allergies No Known Allergies Allergy (Verified 12/28/24 16:55) Medication List - Last Reconciled 12/28/24 by Gemma Taylor MD ascorbic acid (vitamin C) 500 mg PO DAILY 90 days atorvastatin 10 mg PO DAILY calcium carbonate 600 mg PO BID 90 days cholecalciferol (vitamin D3) 50 mcg PO DAILY 90 days ferrous sulfate 325 mg PO Q OTHER DAY 90 days levothyroxine 75 mcg PO DAILY 90 days omeprazole 20 mg PO DAILY 60 days Tobacco use date assessed: 12/28/24 Fall risk assessment: No Falls in past year Last assessed Fall Risk: 12/28/24 Dental Screening Dental Screen Date: 12/28/24 Did you have a dental visit in the last 12 months?: Yes Did you have a dental problem in the last 6 months where you did not have access to dental care?: No Was dental information given to patient?: Patient has dentist HPI HPI Comments History of Present Illness Details This is an 79-year-old female with hypothyroidism, osteopenia and dyslipidemia as well as anemia secondary to esophageal ulcer that comes today accompanied by niece for follow-up on her conditions. Blood pressure was found to be elevated and will be recheck in 3 weeks. Also complains of being bitten by bugs in the left leg about a week ago and now left leg is swollen, warmth and red. Ultrasound of the leg was order to rule out DVT. She also has been having some cognitive impairment not noticed by patient but by family members. She had an MRI of the brain showing generalized cerebral atrophy and will be referred to Neurology for this matter. She is awake, alert and oriented to time, person and place today. Last TSH in September was normal. DEXA scan done 2023 showing osteopenia and she is on calcium with vitamin-D. Next DEXA scan should be 2025. Cholesterol well controlled with statins and labs will be repeated for April. Her hemoglobin has improved with ferrous sulfate and she follows with Hematology-Oncology. For her chronic GERD with history of esophageal ulcer she follows with Gastroenterology. Denies any chest pain or shortness on breath. PFSH Medical History (Updated 12/28/24 @ 17:18 by Gemma Taylor MD) Esophageal ulcer without bleeding COVID-19 vaccine administered Elevated cholesterol Carpal tunnel syndrome on both sides Microcytic anemia Dizziness Hypovitaminosis D Dyslipidemia Autoimmune thyroiditis Hypothyroidism Surgical History History of esophagogastroduodenoscopy (EGD) Hx of colonoscopy Hx of colonoscopy Total knee replacement status Family History Father Lymphoma Mother No problems noted. 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 1. Little interest or pleasure in doing things: not at all 2. Feeling down, depressed, or hopeless: not at all 3. Trouble falling or staying asleep, or sleeping too much: not at all 4. Feeling tired or having little energy: not at all 5. Poor appetite or overeating: not at all 6. Feeling bad about yourself - or that you are a failure or have let yourself or your family down: not at all 7. Trouble concentrating on things, such as reading the newspaper or watching television: not at all 8. Moving or speaking so slowly that other people could have noticed. Or the opposite - being so fidgety or restless that you have been moving around a lot more than usual: not at all 9. Thoughts that you would be better off or of hurting yourself in some way: not at all Total score: 0 Depression Screening Interpretation: Negative Depression Screening Done: Yes 39298 - PHQ-9 Billing: Yes Source: Developed by Drs. Ricardo Baker, Sally B.Clarence Reynoso and colleagues, with an educational melissa from [employer]. Thrive Questionnaire Date Thrive assessed: 12/26/24 I am a: Patient What is your living situation today?: I have a steady place to live Within the past 12 months, did the food you bought not last and you didn't have the money to get more?: Never true Within the past 12 months, did you worry whether your food would run out before you got money to buy more?: Sometimes True Do you have trouble paying for medicines?: No Do you have trouble getting transportation to medical appointments?: Yes Do you have trouble paying your heating and electricity bill?: No Do you have trouble taking care of your child, family member or friend?: No Do you have trouble with day-to-day activities such as bathing, preparing meals, shopping, managing finances, etc.?: Yes Are you currently unemployed and looking for a job?: No Are you interested in more education?: Yes Please select the resources that you would like help with: Transportation and Daily support Currently or been in a relationship where the following occur: No concerns reported THRIVE Score: 2 AUDIT C Alcohol Use Questionnaire (AUDIT-C) 1. How often do you have a drink containing alcohol?: Monthly or less 2. How many drinks containing alcohol do you have on a typical day when you are drinking?: 1 or 2 3. How often do you have six or more drinks on one occasion?: Never Total Score: 1 Score Reviewed/Action Taken: No JERRELL-7 AMB Questionnaire JERRELL-7 Date JERRELL - 7 assessed: 12/28/24 Feeling nervous, anxious, or on edge: 0 = Not at all Not being able to stop or control worryin = Not at all Worrying too much about different things: 0 = Not at all Trouble relaxin = Not at all Being so restless that it is hard to sit still: 0 = Not at all Becoming easily annoyed or irritable: 0 = Not at all Feeling afraid as if something awful might happen: 0 = Not at all Total JERRELL-7 score (0-4 normal; 5-9 mild; 10-14 moderate; 15-21 severe): 0 Source: Developed by Drs. Ricardo Baker, Clarence Barros and colleagues, with an educational melissa from [employer]. JERRELL-7 Assessment Billing JERRELL-7 Assessment Tool: JERRELL-7 Assessment 09071 Review of Systems Const All systems reviewed & are unremarkable except as noted in HPI and below Card Denies chest pain at rest, Denies chest pain with activity, Denies edema, Denies irregular heart rhythm, Denies claudication, Denies dyspnea, Denies dyspnea on exertion, Denies orthopnea, Denies paroxysmal nocturnal dyspnea and Denies slow heart rate Resp Denies cough, Denies dyspnea and Denies dyspnea on exertion GI Denies abdominal pain, Denies change in bowel habits, Denies excessive flatus, Denies nausea and Denies vomiting Denies urinary incontinence, Denies urinary hesitancy and Denies urinary urgency Neuro Denies lack of coordination Physical exam (Primary Care) Vital Signs: Last Vital Signs BP 152/88 H 12/28/24 16:49 BMI result Body Mass Index 31.9 BMI Assessment/Plan discussion: High BMI High, discussed plan: lifestyle, weight reduction, dietary and physical activity Tobacco/Smoking Status: Tobacco use Status Tobacco use date assessed 12/28/24 12/28/24 16:54 Patient Tobacco Use Status Never used Tobacco 12/28/24 16:54 e-Cigarette/Vaping Use Never Used 12/28/24 16:54 PHQ-9: PHQ-9 Score PHQ-9: Total score 0 12/28/24 16:58 Depression Screening Interpretation: Negative Thrive Assessment: Date of Thrive Assessment Date Thrive assessed 12/26/24 12/28/24 16:54 Currently or been in a relationship where the following occur: No concerns reported Resp Effort & Inspection: normal respiratory effort Auscultation: clear to auscultation bilaterally Cardio Jugular venous distension: no JVD Rate: regular rate Rhythm: regular rhythm Heart sounds: S1 normal heart sound present and S2 normal heart sound present Extrem General: Yes full ROM Coding Level of Care Code Est Pt Level 4 (18763) Complex EM visit Add On G2211 Diagnoses Left leg cellulitis L03.116 Cognitive impairment R41.89 Left leg pain M79.605 Anemia D64.9 GERD (gastroesophageal reflux disease) K21.9 Osteopenia M85.80 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; 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 Dyslipidemia E78.5 Additional Codes JERRELL-7 Assessment Billing - JERRELL-7 Assessment Tool: JERRELL-7 Assessment 75578 ([id number]) PHQ-9 - 05950 - PHQ-9 Billing: Yes ([id number]) Time Spent (min) 22 Assessment & Plan Assessment & Plan (1) Left leg cellulitis: Code(s): L03.116 - Cellulitis of left lower limb Category: Medical (2) Cognitive impairment: Code(s): R41.89 - Other symptoms and signs involving cognitive functions and awareness Category: Medical (3) Left leg pain: Code(s): M79.605 - Pain in left leg Category: Medical (4) Anemia: Code(s): D64.9 - Anemia, unspecified Category: Medical (5) GERD (gastroesophageal reflux disease): Code(s): K21.9 - Gastro-esophageal reflux disease without esophagitis Category: Medical (6) Osteopenia: Code(s): M85.80 - Other specified disorders of bone density and structure, unspecified site Category: Medical (7) Hypothyroidism: Code(s): E03.9 - Hypothyroidism, unspecified Category: Medical Qualifiers: 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 Ultrasound of the left leg venous duplex was ordered to rule out DVT. She will take ferrous sulfate every other day for her anemia. Continue PPIs for her GERD. Continue all other current medications. Repeat fasting labs in April. DEXA scan in 2025. Mammogram scheduled for April. Referred to Neurology for cognitive impairment. Orders: Orders US venous duplex LE LT Today M79.605 - Pain in left leg Lipid Panel 4 Months E78.5 - Hyperlipidemia, unspecified Vitamin D 25-OH Total 4 Months E55.9 - Vitamin D deficiency, unspecified Comprehensive [place]. Panel Fast 4 Months M79.605 - Pain in left leg Referrals Neurology Referral R41.89 - Other symptoms and signs involving cognitive functions and awareness Medications: New sulfamethoxazole-trimethoprim 800-160 mg (Bactrim DS) 1 tab PO BID 10 days 20 tabs 0RF L03.116 - Cellulitis of left lower limb
[2024-12-28 16:49] VITALS: BP 152/88; BMI 31.9
--- OUTSIDE RECORDS SUMMARY | 2024-12-28 18:21 | XMS_ITS | Patient Health Record ---
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 Name Role Phone Cassia Lloyd MD Primary Care Provider Carmen Leiva Unavailable [phone] Reason For Referral No Information Medications Medication [...] Status Risk Notes Problem Pain in limb (40264048) Pain in Limb (729.5) Active confirmed Problem Bursitis (71501087) Bursitis (727.3) Active confirmed Problem Hallux valgus (798923203) Hallux Valgus (735.0) Active confirmed Problem Hammer toe (861043685) Hammer toe (735.4) Active confirmed Problem Metatarsalgia (02918387) Metatarsalgia (726.70) Active confirmed Plan Of Treatment No Information Insurance Providers Payer Name Payer Address Payer Phone Subscriber Number Group Number Insured Name Patient Relationship to Insured Coverage Start Date Coverage End Date Medicare National [employer] [address] [place] [address] [id number] Ruthann Ellison Self - patient is the insured Medical (General) History Medical History History ICD Code Thyroid disorder Joint implants/screws Measles Surgical History Surgery Date(Month/Year) knee replacement 2006, 2007
== END 2024-12-28 17:21 | disposition home or self-care (01) ==
LOC: HO.HMCH 16:45
PROVIDERS: PCP Internal Medicine; Visit Provider Internal Medicine
DX: L03.116 Cellulitis of left lower limb (principal); R41.89 Other symptoms and signs involving cognitive functions and awareness; M79.605 Pain in left leg; D64.9 Anemia, unspecified; K21.9 Gastro-esophageal reflux disease without esophagitis; M85.80 Other specified disorders of bone density and structure, unspecified site; E03.8 Other specified hypothyroidism; E06.3 Autoimmune thyroiditis; E78.5 Hyperlipidemia, unspecified

== ENCOUNTER → 2024-12-28 16:44 | Outpatient (BNVA) | payer MEDICARE, SELFPAY | PROVIDERS: PCP Internal Medicine; Visit Provider Internal Medicine | DX: L03.116 Cellulitis of left lower limb (principal); R41.89 Other symptoms and signs involving cognitive functions and awareness; M79.605 Pain in left leg; D64.9 Anemia, unspecified; K21.9 Gastro-esophageal reflux disease without esophagitis; M85.80 Other specified disorders of bone density and structure, unspecified site; E03.8 Other specified hypothyroidism; E06.3 Autoimmune thyroiditis; E78.5 Hyperlipidemia, unspecified | CPT/HCPCS: 96127; 99212 ==

== ENCOUNTER 2024-12-29 09:08 | Outpatient (REF) | payer MEDICARE, SELFPAY ==
--- NOTE | ~2024-12-29 | US_ITS ---
EXAMINATION: US TRIPLEX LOWER EXTREMITY, LEFT CLINICAL INFORMATION: Pain, left lower extremity COMPARISON: None available. TECHNIQUE: Color-flow triplex imaging with spectral analysis and compression Doppler were performed on the left lower extremity. FINDINGS: Respiratory variation, normal compression and augmented flow are present throughout the interrogated common femoral vein, superficial femoral vein, profunda femoral vein, popliteal vein and midcalf peroneal and posterior tibial venous segments. There is no Lloyd's cyst. US/US venous duplex LE IMPRESSION: No acute deep venous thrombosis interrogated veins, left lower extremity. Negative for DVT. Electronically signed by: Natanael Pablo MD 12/29/2024 09:57 AM EDT
--- OUTSIDE RECORDS SUMMARY | 2024-12-29 09:29 | XMS_ITS | Patient Health Record ---
Author Organization [facility] [place] Address [address] [place] [address] Care Team Providers Care Macadam Raker Name Role Phone Cassia Lloyd MD Primary Care Provider Carmen Leiva Unavailable [phone] Reason For Referral No Information Medications Medication [...] Status Risk Notes Problem Pain in limb (84765327) Pain in Limb (729.5) Active confirmed Problem Bursitis (22806175) Bursitis (727.3) Active confirmed Problem Hallux valgus (678153322) Hallux Valgus (735.0) Active confirmed Problem Hammer toe (405283240) Hammer toe (735.4) Active confirmed Problem Metatarsalgia (20287908) Metatarsalgia (726.70) Active confirmed Plan Of Treatment No Information Insurance Providers Payer Name Payer Address Payer Phone Subscriber Number Group Number Insured Name Patient Relationship to Insured Coverage Start Date Coverage End Date Medicare National [employer] [address] [place] [address] [id number] Ruthann Ellison Self - patient is the insured Medical (General) History Medical History History ICD Code Thyroid disorder Joint implants/screws Measles Surgical History Surgery Date(Month/Year) knee replacement 2006, 2007
== END 2024-12-29 09:09 | disposition home or self-care (01) ==
LOC: HO.US 09:08
PROVIDERS: PCP Internal Medicine; Visit Provider Internal Medicine
DX: M79.605 Pain in left leg (principal)
CPT/HCPCS: 93971

== ENCOUNTER → 2024-12-29 09:12 | Outpatient (BNV) | payer MEDICARE, SELFPAY | PROVIDERS: PCP Internal Medicine; Visit Provider Radiology Diagnostic Radiology | DX: M79.662 Pain in left lower leg (principal) | CPT/HCPCS: 93971 ==

== ENCOUNTER 2025-05-09 15:20 | Outpatient (AMB) | payer MEDICARE, SELFPAY ==
[2025-05-09 15:23] VITALS: BP 160/98; PULSE 73; O2SAT 98; BMI 31.9
--- NOTE | 2025-05-09 15:23 | A.OFFVIS_ITS ---
Vital Signs 05/09/25 15:23 Height 5 ft 5 in Weight 192 lb BMI 31.9 BP 160/98 H Blood Pressure Location Rt brachial Position Sitting Pulse 73 Pulse Source Pulse Oximeter Pulse Oximetry (%) 98 Oxygen Delivery Method Room Air Intake Visit Reasons: INP-Other symp inv cog Intake Note: Cognitive Impairment Community Relations Coordinator Required: No Accompanied by: niece Allergies No Known Allergies Allergy (Verified 05/09/25 15:27) Medication List - Last Reconciled 05/09/25 by Michelle Powell MD ascorbic acid (vitamin C) 500 mg PO DAILY 90 days atorvastatin 10 mg PO DAILY calcium carbonate 600 mg PO BID 90 days cholecalciferol (vitamin D3) 50 mcg PO DAILY 90 days ferrous sulfate 325 mg PO Q OTHER DAY 90 days levothyroxine 75 mcg PO DAILY 90 days omeprazole 20 mg PO DAILY HPI Comments Details: 80y/o Right handed female comes for evaluation of cognitive impairment . she is accompanied by her niece Kristina who helps with his history. The patient lives in an senior housing apartment. Her family noticed that she has been having some forgetfulness for about 6-8 mths progressing.she frequently the conversations, repeats herself , misplaces things, forgetting medications ( uses a pill box ), confused with dtaes etc. Mood is stable Sleep is good. she sleeps at 10pm - wakes up 7am . 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 Her niece is concerned about her driving - lost her license and registration. [facility] Medical History (Updated 05/09/25 @ 16:00 by Michelle Powell MD) Mild cognitive impairment Esophageal ulcer without bleeding COVID-19 vaccine administered Elevated cholesterol Carpal tunnel syndrome on both sides Microcytic anemia Dizziness Hypovitaminosis D Dyslipidemia Autoimmune thyroiditis Hypothyroidism Surgical History History of esophagogastroduodenoscopy (EGD) Hx of colonoscopy Hx of colonoscopy Total knee replacement status Family History Father Lymphoma Mother No problems noted. 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 Cognitive needs: No Hearing needs: No Vision needs: No Physical Exam Vital Signs: Last Vital Signs Pulse 73 05/09/25 15:23 BP 160/98 H 05/09/25 15:23 Pulse Ox 98 05/09/25 15:23 Oxygen Delivery Method Room Air 05/09/25 15:23 BMI result Body Mass Index 31.9 Const General: cooperative, healthy appearing, comfortable and no acute distress Nutritional Appearance: obese Orientation/consciousness: patient oriented x3 Eyes Pupils: Equal, round and reactive pupils present Neuro General: patient oriented x3, tone normal, moves all extremities and no focal motor deficits Cranial nerves: Yes Equal, round and reactive pupils present, Yes Bilaterally intact EOM present, Yes Nystagmus not present, Yes Normal facial strength present, Yes Midline tongue present and Yes Ability to bilaterally elevate shoulders present Cognition (Neuro): normal cognition Gait exam (Neuro): Antalgic gait present Motor exam (neuro): 5/5 motor strength present throughout and Normal motor muscle tone present throughout Deep tendon reflexes (DTR's): Right triceps reflex intensity grade: 2+, Left triceps reflex intensity grade: 2+, Rt Biceps (C5, C6): 2+, Left biceps reflex intensity grade: 2+, Right brachioradialis reflex intensity grade: 2+, Left brachioradialis reflex intensity grade: 2+, Right patellar reflex intensity grade: 1+ and Left patellar reflex intensity grade: 1+ Coordination: [id number] test normal Orientation What is the (year) (season) (date) (day) (month)?: year, season, date, day and month Where are we (state) (county) (town or city) (hospital) (floor)?: state, town or city, hospital/clinic and floor Registration Name of 3 unrelated objects clearly and slowly, then ask patient to repeat all 3 of them. (1st repeat determines score. Make sure they can repeat all three): object 1, object 2 and object 3 Attention & Calculation (CHOOSE ONE) Spell WORLD backwards (DLROW): 5 letters Recall Ask patient to repeat the 3 items from question #3.: object 1 Language Show patient a wristwatch & ask what it is. Repeat for pencil.: watch and pencil Ask the patient to repeat the phrase 'No ifs, ands, or buts' after you.: correct Ask the patient to 'take a piece of paper with their right hand' 'fold paper in half' 'place paper on floor': take paper in right hand, fold paper in half and place paper on floor Print the sentence 'CLOSE YOUR EYES' on a piece. If patient actually closes eyes then score.: followed written direction Score Score: 25 Assessment & Plan Assessment & Plan (1) Mild cognitive impairment: Comment: vascular vs alzheimers Code(s): G31.84 - Mild cognitive impairment of uncertain or unknown etiology Category: Medical Plan Reviewed MRI and labs I will trial her on namenda XR 7 mg titrate to 28mg qd Use cane for more support Start aspirin 81mg qd increase cognitive exercises Medications: New aspirin 81 mg PO DAILY 90 tabs 6RF memantine 7 mg PO DAILY 30 ea 0RF Coding Level of Care Code New Pt Level 4 (00662) Complex EM visit Add On G2211 Diagnoses Mild cognitive impairment G31.84
--- OUTSIDE RECORDS SUMMARY | 2025-05-09 21:37 | XMS_ITS | Clinical Summary ---
Author Organization [facility] Address [address] [facility] [address] [place] [address] Phone Care Team Providers Care Dowel Machine Operator Name Role Phone Gemma Stevens MD Primary Care Provid er Allergies No known active allergies Medications VITAMIN C 500 mg CpER Take by mouth daily. 5 9 Active levothyroxine (SYNTHROID, LEVOTHROID) 75 MCG tablet Take 88 mcg by mouth every morning. 4 9 Active VITAMIN D3 2,000 unit capsule Take by mouth daily. 11 9 Active atorvastatin (LIPITOR) 10 MG tablet 9 Active omeprazole (PRILOSEC) 20 MG capsule Take by mouth daily. 2 Active ferrous sulfate 325 mg (65 mg asa'carsarmiut iron) tablet Take 1 tablet by mouth every other day. 3 Active fluoride, sodium, (PREVIDENT 5000 BOOSTER) 1.1 % Pste USE PASTE IN PLACE OF TOOTHPASTE AT BEDTIME. BRUSH FOR 2 MINUTES THEN EXPECTORATE 3 Active Active Problems Problem Noted Date Diagnosed Date Acquired hypothyroidism 08/21/2020 High cholesterol 08/21/2020 Encounters Date Type Department Care Team Description 02/24/2025 11:00 AM EDT Office Visit [facility] [address] [address] Liyah Quintero PA-C Cellulitis of right lower leg (Primary Dx) from Last 3 Months Immunizations Immunization Administration Dates Next Due COVID-19 (Pre-05/10) Pfizer Vaccine, Bivalent 12+ 04/06/2022 Influenza High-Dose Quadriva lent Preservative Free IM 04/06/2022,03/31/2021,03/26/2020 Influenza High-Dose Trivalen t Preservative Free IM 03/31/2019,03/24/2017,04/03/2016 Influenza Quadrivalent Adjuv anted Preservative Free IM 03/30/2023 Influenza Trivalent Adjuvant ed Preservative free IM 05/09/2018 Pneumococcal conjugate PCV13 04/12/2019,10/11/19 16 Zoster live 07/07/2019 Zoster recombinant 07/07/2019,04/14/2019 Social History Tobacco Use Types Packs/Day Years Used Date Smoking Tobacco: Never Smokeless Tobacco: Never Tobacco Cessation:Counseling Given: Not Answered Alcohol Use Standard Drinks/Week Comments Yes 0 (1 standard drink = 0.6 oz pur e alcohol) rarely Education Answer Date Recorded Are you interested in more education? Not on celia e 11/13/2022 Are you concerned about learning? Not on file 11/13/2022 No 11/13/2022 No 11/13/2022 Digital Access Answer Date Recorded No 12/11/2022 No 12/11/2022 Reliable internet access at home? Not on file 12/11/2022 Device with a working camera? Not on file Comments Unknown Sex and Gender Information Value Date Recorded Sex Assigned at Female 06/14/2018 12:54 PM EST Legal Sex Female 10:10 PM EDT Gender Identity Female 06/14/2018 12:54 PM EST Sexual Orientation Not on file Last Filed Vital Signs Vital Sign Reading Time Taken Comments Blood Pressure 127/78 02/24/2025 11:08 AM EDT Pulse 71 02/24/2025 11:08 AM EDT Temperature 37 C (98.6 F) 02/24/2025 11:08 AM EDT Respiratory Rate 18 02/24/2025 11:0 8 AM EDT Oxygen Saturation 97% 02/24/2025 11: 08 AM EDT Inhaled Oxygen Concentration - - Weight 82.9 kg (182 lb 12.8 oz) 023 3:26 PM EDT with shoes Height 165.1 cm (5' 5 ) 11/30/2022 3:05 PM EDT Body Mass Index 30.42 11/30/2022 3:05 PM EDT Plan of Treatment Health Maintenance Due Date Last Done Comments Adult Td,Tdap Booster 1943 TSH LEVEL 1943 DEPRESSION SCREENING 1955 OSTEOPOROSIS SCREENING INITIAL (ONE-TIME) 02/07/2008 ZOSTER VACCINES (3 of 3) 09/01/2019 019, 07/07/2019, 04/14/2019 INFLUENZA VACCINE (#1) 2025 4, 03/30/2023, 04/06/2022, Additional history exists COVID-19 VACCINE ( season) 2025 04/11/2024, 05/13/2023, 04/06/2022, Additional history exists RSV VACCINE Completed 04/26/2023 PNEUMOCOCCAL VACCINES (50+ years) Completed 05/11/2024, 04/12/2019, 10/11/2015 HEPATITIS A VACCINES Aged Out No long er eligible based on patient's age to complete this topic HIB VACCINES Aged Out No longer eligi ble based on patient's age to complete this topic MENINGOCOCCAL VACCINES (ACWY) Aged Out No longer eligible based on patient's age to complete this topic MENINGOCOCCAL VACCINES (B) Aged Out N o longer eligible based on patient's age to complete this topic Medical Devices Not on file Insurance MEDICARE PART A & B MEDICARE PART A & B MEDICARE PART A & B MEDICARE PART A & B MEDICARE PART A & B MEDICARE PART A & B MEDICARE PART A & B MEDICARE PART A & B Care Teams Dowel Machine Operator Relationship Specialty Start Date End Date Gemam Stevens MD [address] [place] [address] PCP - General Internal Medicine 08/21/20 Additional Source Comments The information contained in this document represents components of the legal health record. It is not the complete legal health record.[facility]
--- OUTSIDE RECORDS SUMMARY | 2025-05-09 21:37 | XMS_ITS | Patient Health Record ---
Author Organization [facility] [place] Address [address] [place] [address] Care Team Providers Care Hatchery Man Name Role Phone Cassia Lloyd MD Primary Care Provider Carmen Leiva Unavailable [phone] Reason For Referral No Information Medications Medication [...] Status Risk Notes Problem Pain in limb (13637723) Pain in Limb (729.5) Active confirmed Problem Bursitis (65280768) Bursitis (727.3) Active confirmed Problem Hallux valgus (133441834) Hallux Valgus (735.0) Active confirmed Problem Hammer toe (173248561) Hammer toe (735.4) Active confirmed Problem Metatarsalgia (53111523) Metatarsalgia (726.70) Active confirmed Plan Of Treatment No Information Insurance Providers Payer Name Payer Address Payer Phone Subscriber Number Group Number Insured Name Patient Relationship to Insured Coverage Start Date Coverage End Date Medicare National [employer] [address] [place] [address] [id number] Ruthann Ellison Self - patient is the insured Medical (General) History Medical History History ICD Code Thyroid disorder Joint implants/screws Measles Surgical History Surgery Date(Month/Year) knee replacement 2006, 2007
--- OUTSIDE RECORDS SUMMARY | 2025-05-09 21:37 | XMS_ITS | Encounter Summary ---
Author Organization [facility] Address [address] [facility] [address] [place] [address] Phone Care Team Providers Care Grants Analyst Name Role Phone Cassia Lloyd MD Primary Care Provider [phone] Unknown, Unknown Primary Care Provider Tati guzman Unknown, Unknown Primary Care Provider Gemma Hollis MD Primary Care Provid er Encounter Details Date Type Department Care Team (Latest Contact Info) Description 09/21/2017 Transcribe Orders [facility] [address] [place] [address] Handy Salazar MD [address] [place] [address] [phone] [email or web address] Normocytic hypochromic anemia (Primary Dx) Social History Tobacco Use Types Packs/Day Years Used Date Smoking Tobacco: Never Assessed Comments Unknown Sex and Gender Information Value Date Recorded Sex Assigned at Female 06/14/2018 12:54 PM EST Legal Sex Female 10:10 PM EDT Gender Identity Female 06/14/2018 12:54 PM EST Sexual Orientation Not on file documented as of this encounter Plan of Treatment Not on file documented as of this encounter Results * Iron and iron binding capacity (09/21/2017 12:03 PM EST) IRON 69 30 - 160 ug/dL [facility] IRON BINDING CAPACITY 279 228 - 428 ug/dL [facility] TRANSFERRIN SATURAT. 25 15 - 50 % [facility] Blood 09/21/2017 12:0 3 PM EST 09/21/2017 12:11 PM EST us Handy Salazar MD LAB BLOOD ORDERABLES Final R esult Performing Organization Address City/[facility]/ZIP Co de Phone Number [address] [address] * Ferritin (09/21/2017 12:03 PM EST) FERRITIN 50 13 - 150 ug/L [facility] Blood 09/21/2017 12:0 3 PM EST 09/21/2017 12:11 PM EST us Handy Salazar MD LAB BLOOD ORDERABLES Final R esult Performing Organization Address [facility] Co de Phone Number [address] [address] * (ABNORMAL) CBC and differential (09/21/2017 12:03 PM EST) WBC 5.62 3.40 - 11.20 K/uL [facility] RBC 4.18 3.80 - 4.80 M/uL [facility] HGB 12.8 12.0 - 15.0 g/dL [facility] HCT 38.5 36.0 - 46.0 % [facility] PLT 234 130 - 400 K/uL [facility] MCV 92.1 79.0 - 98.0 fL [facility] MCH 30.6 27.0 - 34.8 pg [facility] MCHC 33.2 31.5 - 36.0 g/dL [facility] RDW 13.7 10.8 - 14.6 % [facility] MPV 11.1 9.4 - 12.4 fl [facility] NRBC 0.00 /100 WBCs [facility] ABSOLUTE NRBC 0.00 K/uL [facility] DIFF METHOD Auto [facility] NEUTS 64.2 45.30 - 77.70 % [facility] LYMPHS 17.6 12.30 - 39.70 % [facility] MONOS 13.5(H) 4.10 - 12.80 % [facility] EOS 3.9 0 - 7.2 % [facility] BASOS 0.4 0 - 2.80 % [facility] Granulocytes, immature (%) 0.4 0.0 - 0.9 % [facility] ABSOLUTE NEUTS 3.61 1.40 - 7.70 K/uL [facility] ABSOLUTE LYMPHS 0.99 0.60 - 3.20 K/uL [facility] ABSOLUTE MONOS 0.76(H) 0.11 - 0.59 K/uL [facility] ABSOLUTE EOS 0.22 0.01 - 0.50 K/uL [facility] ABSOLUTE BASOS 0.02 0.00 - 0.08 K/uL [facility] Granulocytes, immature 0.02 0.00 - 0.05 K/uL [facility] Blood 09/21/2017 12:0 3 PM EST 09/21/2017 12:11 PM EST us Handy Salazar MD LAB BLOOD ORDERABLES Final R esult Performing Organization Address City/State/[facility] Co de Phone Number [address] [phone] documented in this encounter Visit Diagnoses Diagnosis Normocytic hypochromic anemia- Primary Unspecified iron deficiency anemia documented in this encounter Care Teams Grants Analyst Relationship Specialty Start Date End Date Cassia Lloyd MD [address] [place] [phone] [email or web address] PCP - General 07/22/17 06/13/18 Unknown, Unknown, [address] [place] [id number] PCP - General 06/14/18 05/24/19 Unknown, Unknown, [address] [place] [phone] PCP - General 05/25/19 08/20/20 Gemma Stevens MD [address] [place] [address] PCP - General Internal Medicine 08/21/20 documented as of this encounter Additional Source Comments The information contained in this document represents components of the legal health record. It is not the complete legal health record.[facility]
--- OUTSIDE RECORDS SUMMARY | 2025-05-09 21:37 | XMS_ITS | Encounter Summary ---
Author Organization [facility] Address [address] [place] [phone] Phone Care Team Providers Care Music Box Mechanic Name Role Phone Unknown, Unknown Primary Care Provider Gemma Hollis MD Primary Care Provid er Encounter Details Date Type Department Care Team (Late st Contact Info) Description 08/02/2020 Ancillary Orders Virtual Department [address] [place] [address] Gemma Stevens MD [address] [place] [address] Breast screening Social History Tobacco Use Types Packs/Day Years Used Date Smoking Tobacco: Never Smokeless Tobacco: Never Alcohol Use Standard Drinks/Week Comments Yes 0 (1 standard drink = 0.6 oz pur e alcohol) occasionally Comments Unknown Sex and Gender Information Value Date Recorded Sex Assigned at Female 06/14/2018 12:54 PM EST Legal Sex Female 10:10 PM EDT Gender Identity Female 06/14/2018 12:54 PM EST Sexual Orientation Not on file documented as of this encounter Plan of Treatment Not on file documented as of this encounter Visit Diagnoses Diagnosis Breast screening Breast screening, unspecified documented in this encounter Care Teams Music Box Mechanic Relationship Specialty Start Date End Date Unknown, Unknown, PCP - General 05/25/19 08/20/20 Gemma Stevens MD [address] [place] [address] PCP - General Internal Medicine 08/21/20 documented as of this encounter Additional Source Comments The information contained in this document represents components of the legal health record. It is not the complete legal health record.[facility]
== END 2025-05-09 16:07 | disposition home or self-care (01) ==
LOC: HO.HSMS 15:21
PROVIDERS: PCP Internal Medicine; Visit Provider Psychiatry & Neurology Neurology
DX: G31.84 Mild cognitive impairment of uncertain or unknown etiology (principal)
CPT/HCPCS: 99204; G2211

== ENCOUNTER → 2025-05-09 15:20 | Outpatient (BNVA) | payer MEDICARE, SELFPAY | PROVIDERS: PCP Internal Medicine; Visit Provider Psychiatry & Neurology Neurology | DX: Z71.2 Person consulting for explanation of examination or test findings (principal); G31.84 Mild cognitive impairment of uncertain or unknown etiology | CPT/HCPCS: 99202 ==

== ENCOUNTER 2025-05-16 12:56 | Outpatient (AMB) | payer MEDICARE, SELFPAY ==
[2025-05-16 13:03] VITALS: BP 132/84; PULSE 62; O2SAT 96; BMI 31.8
--- NOTE | 2025-05-16 13:03 | A.OFFVIS_ITS ---
Intake Vital Signs 05/16/25 13:03 Height 5 ft 5 in Weight 191 lb BMI 31.8 BP 132/84 Blood Pressure Location Rt brachial Position Sitting Pulse 62 Pulse Source Pulse Oximeter Pulse Oximetry (%) 96 Oxygen Delivery Method Room Air Intake Visit Reasons: SWV G0439 Customer Greeter Required: No Accompanied by: Self / Same As Patient Allergies No Known Allergies Allergy (Verified 05/16/25 13:24) Medication List - Last Reconciled 05/16/25 by Gemma Taylor MD ascorbic acid (vitamin C) 500 mg PO DAILY 90 days aspirin 81 mg PO DAILY atorvastatin 10 mg PO DAILY calcium carbonate 600 mg PO BID 90 days [cane As directed] cholecalciferol (vitamin D3) 50 mcg PO DAILY 90 days ferrous sulfate 325 mg PO Q OTHER DAY 90 days levothyroxine 75 mcg PO DAILY 90 days memantine 7 mg PO DAILY omeprazole 20 mg PO DAILY Do you need a note to return to daycare/school/sports/work: No HPI HPI Comments History of Present Illness Details The patient is an 80-year-old female presenting for a Medicare annual wellness exam. She was seen by neurology on May 09 and a Mini-Mental exam score of 25 was noted, indicating mild cognitive impairment. A brain MRI showed global cerebral atrophy without hemorrhage or mass, and she was started on memantine 7 mg to be titrated up gradually. Her neurologist also initiated baby aspirin. [facility] handed to patient. [place] of care reviewed and updated. She sees Neurology Dr. Powell, hematology Dr. Gordon and Gastroenterology Dr. Lemos. The patient has a history of a swollen leg for a few months, for which a duplex study was normal. She was seen at urgent care for pain and was treated with antibiotics, which resolved any redness, though the swelling persisted. She also reports intermittent sciatica, which is described as pain in the left buttock area that does not radiate and is associated with sitting on soft chairs or in the car. Past surgical history includes bilateral total knee replacements and a colonoscopy in 2020, with a recommendation for no further screenings. Her father at 83 from lymphoma, and her mother was healthy. The patient does not smoke and drinks wine occasionally. The patient's current medications include atorvastatin 10 mg, calcium, vitamin D, ferrous sulfate, levothyroxine 75 mcg, memantine 7 mg, and omeprazole. She follows up with specialists in neurology, hematology/oncology, and gastroenterology. [facility] Medical History Mild cognitive impairment Esophageal ulcer without bleeding COVID-19 vaccine administered Elevated cholesterol Carpal tunnel syndrome on both sides Microcytic anemia Dizziness Hypovitaminosis D Dyslipidemia Autoimmune thyroiditis Hypothyroidism Surgical History History of esophagogastroduodenoscopy (EGD) Hx of colonoscopy Hx of colonoscopy Total knee replacement status Family History Father Lymphoma Mother No problems noted. 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 Cognitive needs: No Hearing needs: No Vision needs: No Questionnaire Medicare Wellness Checkup What is your age?: 78 or older What gender do you identify with?: female During the past 4 weeks, how much have you been bothered by emotional problems such as feeling anxious, depressed, irritable, sad or downhearted, and blue?: not at all During the past 4 weeks, has your physical & emotional health limited your social activities with family, friends, neighbors, or groups?: not at all During the past 4 weeks, how much bodily pain have you generally had?: mild pain During the past 4 weeks, was someone available to help you if you needed & wanted help?: yes, as much as I wanted During the past 4 weeks, what was the hardest physical activity you could do for at least 2 minutes?: very light Can you get to places out of walking distance without help? (For eg., can you travel alone on buses, taxis or drive your car?): No Can you go shopping for groceries or clothes without someone's help?: No Can you prepare your own meals?: Yes Can you do your housework without help?: Yes Because of any health problems, do you need the help of another person with your personal care needs such as eating, bathing, dressing or getting around the house?: No Can you handle your own money without help?: No During the past 4 weeks, how would you rate your health in general?: very good During the past 4 weeks how have things been going for you?: pretty well Do you always fasten your seat belt when you are in a car?: yes, usually During past 4 weeks, have you been bothered by the following: never: Sexual problems?, Trouble eating well?, Teeth or denture problems?, Problems using the telephone? and Tiredness or fatigue? and seldom: Falling or dizzy when standing up Have you fallen 2 or more times in the past year?: No Are you afraid of falling?: No Are you a smoker?: no During the past 4 weeks, how many drinks of wine, beer, or other alcoholic beverages did you have?: no alcohol at all Do you exercise for about 20 minutes 3 or more times a week?: no, I usually do not exercise this much Have you been given information to help with the following?: yes: Keeping track of your medications? and no: Hazards in your house that might hurt you? How often do you have trouble taking medicines the way you have been told to take them?: sometimes I take medicine as prescribed How confident are you that you can control & manage most of your health problems?: somewhat confident What is your race?: White Activity of Daily Living Bathing - sponge bath, tub bath or shower: receives no assistance (gets in/out by self, if usual bathing means Dressing - getting clothes from closets & drawers, including inner/outer garments & fasteners.: gets clothes & gets completely dressed without help Toileting - going to the 'toilet room' for urine/bowel elimination & cleaning self/arranging clothes: goes to toilet room, cleans self, arranges clothes without help Transfer: moves in & out of bed and chair without help (may use support object) Continence: has occasional 'accidents' Feeding: feeds self without help Total Score: 0 Information obtained from: patient Using telephone: independent Traveling: dependent Shopping: dependent Preparing meals: dependent Housework: dependent Taking medicine: needs assistance Managing money: dependent Thrive Questionnaire Date Thrive assessed: 05/16/25 I am a: Patient What is your living situation today?: I have a steady place to live Within the past 12 months, did the food you bought not last and you didn't have the money to get more?: Never true Within the past 12 months, did you worry whether your food would run out before you got money to buy more?: Sometimes True Do you have trouble paying for medicines?: No Do you have trouble getting transportation to medical appointments?: Yes Do you have trouble paying your heating and electricity bill?: No Do you have trouble taking care of your child, family member or friend?: No Do you have trouble with day-to-day activities such as bathing, preparing meals, shopping, managing finances, etc.?: Yes Are you currently unemployed and looking for a job?: No Are you interested in more education?: Yes Please select the resources that you would like help with: None Currently or been in a relationship where the following occur: No concerns reported THRIVE Score: 2 JERRELL-7 AMB Questionnaire JERRELL-7 Date JERRELL - 7 assessed: 05/16/25 Feeling nervous, anxious, or on edge: 0 = Not at all Not being able to stop or control worryin = Not at all Worrying too much about different things: 0 = Not at all Trouble relaxin = Not at all Being so restless that it is hard to sit still: 0 = Not at all Becoming easily annoyed or irritable: 0 = Not at all Feeling afraid as if something awful might happen: 0 = Not at all Total JERRELL-7 score (0-4 normal; 5-9 mild; 10-14 moderate; 15-21 severe): 0 Source: Developed by Drs. Ricardo Baker, Sally García, Clarence Samson and colleagues, with an educational melissa from [employer] JERRELL-7 Assessment Billing JERRELL-7 Assessment Tool: JERRELL-7 Assessment 96211 Review of Systems Const All systems reviewed & are unremarkable except as noted in HPI and below ENT Reports Normal hearing present (whisper test normal) Card Denies chest pain at rest, Denies chest pain with activity, Denies edema, Denies irregular heart rhythm, Denies claudication, Denies dyspnea, Denies dyspnea on exertion, Denies orthopnea, Denies paroxysmal nocturnal dyspnea and Denies slow heart rate Resp Denies cough, Denies dyspnea and Denies dyspnea on exertion GI Denies abdominal pain, Denies change in bowel habits, Denies excessive flatus, Denies nausea and Denies vomiting Musc Denies abnormal gait Neuro Reports Normal hearing present (whisper test normal) and Denies abnormal gait Physical Exam Vital Signs: Last Vital Signs Pulse 62 05/16/25 13:03 BP 132/84 05/16/25 13:03 Pulse Ox 96 05/16/25 13:03 Oxygen Delivery Method Room Air 05/16/25 13:03 BMI result Body Mass Index 31.8 Resp Effort & Inspection: normal respiratory effort Auscultation: clear to auscultation bilaterally Cardio Jugular venous distension: no JVD Rate: regular rate Rhythm: regular rhythm Heart sounds: S1 normal heart sound present and S2 normal heart sound present Neuro General: no focal motor deficits Cranial nerves: Yes Normal hearing present (whisper test normal) Gait exam (Neuro): Normal gait present Romberg Test: Negative Extrem General: Yes full ROM Psych Appearance: grossly normal Immunizations Tenivac (PF) 5 Lf unit-2 Lf unit/0.5 mL intramuscular syringe Performing Provider: Gemma Taylor MD [facility] Administered by: Jimena Maguire CMA on 05/16/25 13:52 Dose Route Admin Location Dispensed Lot Number Expiration Date NDC Deputy Sheriff Lieutenant 0.5 mL IM Left Deltoid 0.5 mL [id number] 10/17/26 32378-676-52 [employer] Total Dispensed Waste 0.5 mL 0 % VIS Given Date VIS Provided VIS Publication Date 05/16/25 Single Vaccine 21 Eligibility Eligibility Date Funding Source Not [facility] [place] Eligible 05/16/25 Private Assessment & Plan Assessment & Plan (1) Encounter for Medicare annual wellness exam: Code(s): Z00.00 - Encounter for general adult medical examination without abnormal findings (2) Lymphedema: Code(s): I89.0 - Lymphedema, not elsewhere classified (3) Lumbar degenerative disc disease: Code(s): M51.36 - Other intervertebral disc degeneration, lumbar region Plan Plan 1. Encounter for general adult medical examination without abnormal findings Z00.00 Repeat in a year. 2. Lymphedema, not elsewhere classified I89.0 The patient has chronic bilateral lower extremity swelling that has not resolved, despite a previous normal duplex scan and a course of antibiotics from urgent care for a presumed infection. Given the findings, a referral to vascular surgery will be made for evaluation of lymphedema. Diuretics will be avoided as they are unlikely to solve the underlying problem and may cause adverse effects such as increased urinary frequency. 3. Other intervertebral disc degeneration, lumbar region without mention of lumbar back pain or lower extremity pain M51.369 The patient reports occasional, non-radiating pain in the left buttock area, which is exacerbated by sitting. Since the symptoms are not persistent, a medication will be prescribed for as-needed use. Imaging and physical therapy are not indicated at this time. Orders: Orders Td Immunization Today Z23 - Encounter for immunization Lipid Panel Today E78.5 - Hyperlipidemia, unspecified Vitamin B12 and Folate Today E53.8 - Deficiency of other specified B group vitamins Vitamin D 25-OH Total Today E55.9 - Vitamin D deficiency, unspecified Thyroid Stimulating Hormone Today E03.8 - Other specified hypothyroidism, E06.3 - Autoimmune thyroiditis Comprehensive [place]. Panel Fast Today E78.5 - Hyperlipidemia, unspecified Referrals Vascular Surgery Referral I89.0 - Lymphedema, not elsewhere classified Medications: New celecoxib (Celebrex) 100 mg PO BID PRN 14 caps 0RF pain 7 days M51.36 - Other intervertebral disc degeneration, lumbar region Coding Level of Care Code Medicare Subsequent (G0439) Est Pt Level 3 (32721) Diagnoses Encounter for Medicare annual wellness exam Z00.00 Lymphedema I89.0 Lumbar degenerative disc disease M51.36 CPT Codes Advance Care Planning - Advance Care Planning discussion: On file, no changes ([id number]) Advance Care Planning - Time spent: 1-15 minutes, on File ([id number]) Additional Codes JERRELL-7 Assessment Billing - JERRELL-7 Assessment Tool: JERRELL-7 Assessment 07909 ([id number]) Time Spent (min) 36 Advance Care Planning Advance Care Planning discussion: On file, no changes Date of discussion: 05/16/25 Who was present: Taurus Acevedo, patient and me Forms completed: Health Care Proxy Time spent: 1-15 minutes, on File Actual minutes spent: 1
--- OUTSIDE RECORDS SUMMARY | 2025-05-16 16:23 | XMS_ITS | Patient Health Record ---
Author Organization [facility] [address] Address [address] [place] [address] Care Team Providers Care Java Enterprise Architect Name Role Phone Cassia Lloyd MD Primary Care Provider Carmen Leiva Unavailable [phone] Reason For Referral No Information Medications Medication [...] Status Risk Notes Problem Pain in limb (96190714) Pain in Limb (729.5) Active confirmed Problem Bursitis (09616008) Bursitis (727.3) Active confirmed Problem Hallux valgus (310058021) Hallux Valgus (735.0) Active confirmed Problem Hammer toe (151361289) Hammer toe (735.4) Active confirmed Problem Metatarsalgia (50788334) Metatarsalgia (726.70) Active confirmed Plan Of Treatment No Information Insurance Providers Payer Name Payer Address Payer Phone Subscriber Number Group Number Insured Name Patient Relationship to Insured Coverage Start Date Coverage End Date Medicare [employer] [address] [place] [address] [id number] Ruthann Elilson Self - patient is the insured Medical (General) History Medical History History ICD Code Thyroid disorder Joint implants/screws Measles Surgical History Surgery Date(Month/Year) knee replacement 2006, 2007
== END 2025-05-16 13:55 | disposition home or self-care (01) ==
LOC: HO.HMCH 12:57
PROVIDERS: PCP Internal Medicine; Visit Provider Internal Medicine
DX: Z00.00 Encounter for general adult medical examination without abnormal findings (principal); I89.0 Lymphedema, not elsewhere classified; M51.369 Other intervertebral disc degeneration, lumbar region without mention of lumbar back pain or lower extremity pain; Z23 Encounter for immunization

== ENCOUNTER → 2025-05-16 12:56 | Outpatient (BNVA) | payer MEDICARE, SELFPAY | PROVIDERS: PCP Internal Medicine; Visit Provider Internal Medicine | DX: I89.0 Lymphedema, not elsewhere classified (principal); Z23 Encounter for immunization; Z13.39 Encounter for screening examination for other mental health and behavioral disorders | CPT/HCPCS: 90471; 90714; 96127; 99212 ==

== ENCOUNTER 2025-05-28 14:18 | Outpatient (AMB) | payer MEDICARE, SELFPAY ==
[2025-05-28 14:50] VITALS: BMI 31.8
--- NOTE | 2025-05-28 14:50 | A.OFFVIS_ITS ---
Vital Signs 05/28/25 14:50 Height 5 ft 5 in Weight 191 lb BMI 31.8 Intake Visit Reasons: B/L foot pain & ingrown nail refer DR Velásquez Intake Note: Ruthann is a 80 year old female who presents today as a new patient for an evaluation of her bilateral ingrown toenail. Patient reports she is not feeling pain however she has overlapping toes and long toenail with possible fungus. She states this has been going on for years and she has not tried of any treatment for her condition. Allergies No Known Allergies Allergy (Verified 05/28/25 14:51) HPI HPI B/L foot pain & ingrown nail refer DR Velásquez: Details: 80-year-old female past medical history of hypertension, hypothyroidism, GERD, unsteady gait presents for painful digital deformity. She states that she has had bunions and hammertoe deformities her entire life with progressive arthritis . She has since developed painful calluses on her feet. She has attempted changing shoe wear, which has helped. [facility] Medical History Mild cognitive impairment Esophageal ulcer without bleeding COVID-19 vaccine administered Elevated cholesterol Carpal tunnel syndrome on both sides Microcytic anemia Dizziness Hypovitaminosis D Dyslipidemia Autoimmune thyroiditis Hypothyroidism Surgical History History of esophagogastroduodenoscopy (EGD) Hx of colonoscopy Hx of colonoscopy Total knee replacement status Family History Father Lymphoma Mother No problems noted. 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 Interdigital spaces: Clear, no maceration or fungal infection. Nails: Thickened elongated dystrophic discolored toenails x 10 with subungual debris. Neuro: Protective sensation grossly intact to bilateral lower extremity Msk: Severe hallux valgus deformity bilaterally, track bound. Overlapping 2nd and 3rd digit, dislocated Metatarsal-phalangeal joint. Footwear Assessment: Shoes inspected; appropriate fit, no excessive wear, or foreign objects noted. Office Procedures AMB Debridement/Avulsion Podia Details: Procedure: Callus debridement Location: Bilateral feet, 6 lesions Anesthesia: N/A Description: The affected area was cleansed with an antiseptic solution. Using a sterile #15 blade, the hyperkeratotic tissue was radially debrided from the foot. All callused tissue was removed down to normal skin without causing bleeding or discomfort. The area was inspected for underlying ulceration or infection. Patient tolerated the procedure well. No complications noted. Tolerance: Patient tolerated procedure well, no immediate complications. Procedure: Nail debridement Location: Bilateral feet Anesthesia: N/A Description: The affected toenails were cleansed with an antiseptic solution. Using sterile nail nippers and a rotary serena, dystrophic and mycotic nail material was carefully debrided and reduced in thickness. Care was taken to avoid trauma to the surrounding skin and nail bed. All debris was removed as tolerated. The area was inspected for signs of infection or ulceration. Patient tolerated the procedure well without complications. Tolerance: Patient tolerated procedure well, no immediate complications. Class B findings as per physical exam findings above. The patient has a diagnosis of unsteady gait and presents with elongated, thickened toenails. Due to the patient being unable to take care of the own feet and perform routine nail care, the patient is at increased risk for complications such as ulceration, infection, and difficulty with self-care. Debridement of elongated toenails is medically necessary to prevent development of pressure-related lesions, reduce risk of secondary infection, and maintain foot health in her age group. 58992-Ivbiaoakddh of Nail 6+ 98000-Aeupikwlqxr of Callus (5+) Procedure code (CPT) selection complete Assessment & Plan Assessment & Plan (1) Acquired hammertoes of both feet: Code(s): M20.41 - Other hammer toe(s) (acquired), right foot; M20.42 - Other hammer toe(s) (acquired), left foot Category: Medical Plan: * dislocated hammertoes causing plantar feet lesions * recommended wide shoe-wear (2) Hallux valgus, acquired, bilateral: Code(s): M20.11 - Hallux valgus (acquired), right foot; M20.12 - Hallux valgus (acquired), left foot Category: Medical Plan: * no surgical treatment at this time (3) Onychogryphosis: Code(s): L60.2 - Onychogryphosis Category: Medical Plan: * debrided nails x10 using a sterile nail nipper. * Rx Urea 40% Orders: Orders AMB Debridement/Avulsion Podiatry Today L84 - Corns and callosities Medications: New urea 40% 1 appl topical BID 28 grams 5RF calluses L84 - Corns and callosities Coding Level of Care Code New Pt Level 4 (56176) Diagnoses Acquired hammertoes of both feet M20.41; M20.42 Hallux valgus, acquired, bilateral M20.11; M20.12 Onychogryphosis L60.2 CPT Codes Skin Debridement - CPT: 32074-Xqdfgdmnmfz of Callus (5+) ([id number]) Skin Debridement - CPT: 33580-Hkpzevvcxpj of Nail 6+ ([id number]) Time Spent (min) 30
--- OUTSIDE RECORDS SUMMARY | 2025-05-28 16:41 | XMS_ITS | Encounter Summary ---
Author Organization [facility] Address [address] [facility] [address] [place] [address] Phone Care Team Providers Care Money Room Teller Name Role Phone Cassia Lloyd MD Primary Care Provider [phone] Unknown, Unknown Primary Care Provider Tati guzman Unknown, Unknown Primary Care Provider Gemma Hollis MD Primary Care Provid er Encounter Details Date Type Department Care Team (Latest Contact Info) Description 09/21/2017 Transcribe Orders [facility] Phleb [address] [address] Handy Salazar MD [address] [place] [address] [phone] [email or web address] Normocytic hypochromic anemia (Primary Dx) Social History [...] EST) IRON 69 30 - 160 ug/dL [facility] IRON BINDING CAPACITY 279 228 - 428 ug/dL [facility] TRANSFERRIN SATURAT. 25 15 - 50 % [facility] Blood 09/21/2017 12:0 3 PM EST 09/21/2017 12:11 PM EST us Handy Salazar MD LAB BLOOD BKR ORDERABLES Fin al Result Performing Organization Address City/[facility]/ZIP Co de Phone Number [address] [address] * Ferritin (09/21/2017 12:03 PM EST) FERRITIN 50 13 - 150 ug/L [facility] Blood 09/21/2017 12:0 3 PM EST 09/21/2017 12:11 PM EST us Handy Salazar MD LAB BLOOD BKR ORDERABLES Fin al Result Performing Organization Address [facility] de Phone Number [address] [address] * (ABNORMAL) CBC and differential (09/21/2017 12:03 PM EST) WBC 5.62 3.40 - 11.20 K/uL [facility] RBC 4.18 3.80 - 4.80 M/uL [facility] HGB 12.8 12.0 - 15.0 g/dL [facility] HCT 38.5 36.0 - 46.0 % [facility] PLT 234 130 - 400 K/uL [facility] MCV 92.1 79.0 - 98.0 fL [facility] MCH 30.6 27.0 - 34.8 pg [facility] MCHC 33.2 31.5 - 36.0 g/dL [facility] RDW 13.7 10.8 - 14.6 % [facility] MPV 11.1 9.4 - 12.4 [facility] NRBC 0.00 /100 WBCs [facility] ABSOLUTE NRBC 0.00 K/uL [facility] DIFF METHOD Auto [facility] NEUTS 64.2 45.30 - 77.70 % [facility] LYMPHS 17.6 12.30 - 39.70 % [facility] MONOS 13.5(H) 4.10 - 12.80 % [facility] EOS 3.9 0 - 7.2 % [facility] BASOS 0.4 0 - 2.80 % [facility] Granulocytes, immature (%) 0.4 0.0 - 0.9 % [facility] ABSOLUTE NEUTS 3.61 1.40 - 7.70 K/uL [facility] ABSOLUTE LYMPHS 0.99 0.60 - 3.20 K/uL [facility] ABSOLUTE MONOS 0.76(H) 0.11 - 0.59 K/uL [facility] ABSOLUTE EOS 0.22 0.01 - 0.50 K/uL [facility] ABSOLUTE BASOS 0.02 0.00 - 0.08 K/uL [facility] Granulocytes, immature 0.02 0.00 - 0.05 K/uL [facility] Blood 09/21/2017 12:0 3 PM EST 09/21/2017 12:11 PM EST us Handy Salazar MD LAB BLOOD BKR ORDERABLES Fin al Result Performing Organization Address City/State/[facility] Co de Phone Number [address] [address] documented in this encounter Visit Diagnoses Diagnosis Normocytic hypochromic anemia- Primary Unspecified iron deficiency anemia documented in this encounter Care Teams Money Room Teller Relationship Specialty Start Date End Date Cassia Lloyd MD [address] [place] [id number] PCP - General 07/22/17 06/13/18 Unknown, Unknown, [address] [place] [address] PCP - General 06/14/18 05/24/19 Unknown, Unknown, [address] [place] [address] PCP - General 05/25/19 08/20/20 Gemma Stevens MD [address] [place] [address] PCP - General Internal Medicine 08/21/20 documented as of this encounter Additional Source Comments The information contained in this document represents components of the legal health record. It is not the complete legal health record.[facility]
--- OUTSIDE RECORDS SUMMARY | 2025-05-28 16:41 | XMS_ITS | Clinical Summary ---
Author Organization [facility] Address [address] [facility] [address] [place] [address] Phone Care Team Providers Care Squash Centre Manager Name Role Phone Gemma Stevens MD Primary [...] Active ferrous sulfate 325 mg (65 mg [place] [employer] iron) tablet Take 1 tablet by mouth every other day. 3 Active fluoride, sodium, (PREVIDENT 5000 BOOSTER) 1.1 % Pste USE PASTE IN PLACE OF TOOTHPASTE AT BEDTIME. BRUSH FOR 2 MINUTES THEN EXPECTORATE 3 Active Active Problems Problem Noted Date Diagnosed Date Acquired hypothyroidism 08/21/2020 High cholesterol 08/21/2020 Immunizations Immunization Administration Dates Next Due COVID-19 [...] 019, 07/07/2019, 04/14/2019 INFLUENZA VACCINE (#1) 2025 , 03/30/2023, 04/06/2022, Additional history exists COVID-19 VACCINE (2024- season) 2025 04/11/2024, 05/13/2023, 04/06/2022, Additional history [...] MEDICARE PART A & B Care Teams Squash Centre Manager Relationship Specialty Start Date End Date Gemma Stevens MD [address] [place] [address] PCP - General Internal Medicine 08/21/20 Additional Source Comments The information contained in this document represents components of the legal health record. It is not the complete legal health record.[facility]
--- OUTSIDE RECORDS SUMMARY | 2025-05-28 16:41 | XMS_ITS | Encounter Summary ---
Author Organization [facility] Address [address] [place] [address] Phone Care Team Providers Care Deal Architect Name Role Phone Unknown, Unknown Primary Care Provider Gemma Hollis MD Primary Care Provid er Encounter Details Date Type Department Care Team (Late st Contact Info) Description 08/02/2020 Ancillary Orders Virtual Department [address] [place] [address] Gemma Stevens MD [address] [place] [address] Breast screening Social History Tobacco Use Types [...] unspecified documented in this encounter Care Teams Deal Architect Relationship Specialty Start Date End Date Unknown, Unknown, PCP - General 05/25/19 08/20/20 Gemma Stevens MD [address] [place] [address] PCP - General Internal Medicine 08/21/20 documented as of this encounter Additional Source Comments The information contained in this document represents components of the legal health record. It is not the complete legal health record.[facility]
== END 2025-05-28 15:21 | disposition home or self-care (01) ==
LOC: HO.HPODS 14:19
PROVIDERS: PCP Internal Medicine; Visit Provider Student in an Organized Health Care Education/Training Program
DX: M20.41 Other hammer toe(s) (acquired), right foot (principal); M20.42 Other hammer toe(s) (acquired), left foot; M20.11 Hallux valgus (acquired), right foot; M20.12 Hallux valgus (acquired), left foot; L60.2 Onychogryphosis; L84 Corns and callosities
CPT/HCPCS: 11057; 11721; 99204

== ENCOUNTER → 2025-05-28 14:18 | Outpatient (BNVA) | payer MEDICARE, SELFPAY | PROVIDERS: PCP Internal Medicine; Visit Provider Student in an Organized Health Care Education/Training Program | DX: L60.2 Onychogryphosis (principal); M20.11 Hallux valgus (acquired), right foot; M20.12 Hallux valgus (acquired), left foot; M20.41 Other hammer toe(s) (acquired), right foot; M20.42 Other hammer toe(s) (acquired), left foot | CPT/HCPCS: 11057; 11721; 99202 ==